=== PATIENT | male | born 1940 | race Caucasian/White ===

== ENCOUNTER → 2019-05-11 08:46 | Outpatient (BNVA) | payer MEDICARE, OTHER, SELFPAY | PROVIDERS: Family Provider Family Medicine; PCP Family Medicine; Visit Provider Nurse Practitioner Psychiatric/Mental Health | DX: F33.1 Major depressive disorder, recurrent, moderate (principal); F41.9 Anxiety disorder, unspecified | CPT/HCPCS: 99214 ==

== ENCOUNTER 2019-06-01 06:53 | Day surgery (SDC) | payer MEDICARE, OTHER, SELFPAY ==
[2019-05-29 16:09] VITALS: BMI 24.0
[2019-06-01] VITALS (13 sets, daily range): BP systolic 123–158; BP diastolic 70–82; PULSE 59–76; RESP 13–220; TEMP 36.4–37; O2SAT 94–100
--- NOTE | 2019-06-01 07:27 | PM.HPUD ---
H&P update H&P Update: DATE OF SURGERY/PROCEDURE: 06/01/19 DATE H&P PERFORMED: 05/28/19 H&P UPDATE INFORMATION: H&P completed within last 30 days and No changes to prior documentation PREOP DIAGNOSIS: Right inguinal hernia PLANNED PROCEDURE: Operation Date: 06/01/19 08:30 Proposed Procedures p Laparoscopic Inguinal Hernia Repair w/Mesh 49390 K40.90(Right) - Fernando Vazquez MD Full H&P Perinent History: Medical/Surgical History: Medical History (Updated 05/28/19 @ 09:28 by Fernando Vazquez MD) Anxiety (Acute) Back pain with history of spinal surgery (Acute) BPH (benign prostatic hyperplasia) (Acute) Depression (Acute) Hyperlipidemia (Acute) Right inguinal hernia (Acute) Family History: Family History (Updated 05/28/19 @ 09:18 by Marcia Sebastian LPN) Denies family history of Diabetes Anesthesia complication Bleeding disorder Cancer Social History: Social History Smoking and tobacco status: current every day smoker cigarettes Packs smoked per day: 1 Alcohol intake: never Household members: family Marital status: Single Current occupational status: retired History of recent travel: No
[2019-06-01] MEDS: sodium chloride 0.9% 1,000 ML 30 ML IV (07:35)
--- NOTE | 2019-06-01 07:39 | ANES.PREANE2 ---
Pre-Anesthetic Assessment Pre-Anesthetic Assessment: Height/Weight: Height 1.8 m Weight 78.018 kg Temp Pulse Resp BP Pulse Ox 98.6 F 63 18 138/70 96 06/01/19 07:16 06/01/19 07:16 06/01/19 07:16 06/01/19 07:16 06/01/19 07:16 Preop Diagnosis: Right inguinal hernia Proposed Procedure: Operation Date: 06/01/19 08:30 Proposed Procedures p Laparoscopic Inguinal Hernia Repair w/Mesh 85152 K40.90(Right) - Fernando Vazquez MD Last intake: Intake Last Liquid Date 05/31/19 Last Liquid Time 20:00 Last Solid Date 05/31/19 Last Solid Time 18:00 Social: Social History: Tobacco and No alcohol Exam: Pre-Anes Outpt Exam: alert, oriented x 3, clear to auscultation bilaterally and regular rate & rhythm Airway: MP: 2 Dentition: Partials (U & L) History/ROS: No significant history except as noted Pulmonary: Pulmonary: None reported CV/HEM: CV/HEM: None reported : : None reported Hepatic: Hepatic: None reported GI: GI: None reported Metabolic: Metabolic: Hyperlipidemia Musc/skel: Musc/skel: OA/DJD Neuropsych: Neuropsych: None reported Anesthetic Plan: ASA status: 3 Anesthesia: Anesthesia Evaluation and General Risk of > 500 ml blood loss (7ml/kg in children): No Meds/Allergies Current Medications: Current Medications Generic Name Dose Route Start Last Admin Trade Name Freq PRN Reason Stop Dose Admin Sodium Chloride 1,000 mls @ 30 ml s/hr 06/01/19 07:15 06/01/19 07:35 Sodium Chloride 0.9% IV 06/02/19 07:14 30 mls/hr .Q24H TERA Administration PFSH Anesthesia PFSH: Medical History Anxiety (Acute) Back pain with history of spinal surgery (Acute) BPH (benign prostatic hyperplasia) (Acute) Depression (Acute) Hyperlipidemia (Acute) Right inguinal hernia (Acute) Surgical History H/O circumcision (Acute) H/O colonoscopy (Acute) 3 yrs ago H/O shoulder surgery (Acute) bilateral rotator cuff repairs History of back surgery (Acute) Status post left knee replacement (Acute) Family History Denies family history of Diabetes Anesthesia complication Bleeding disorder Cancer Social History Smoking and tobacco status: current every day smoker cigarettes Packs smoked per day: 1 Alcohol intake: never Household members: family Marital status: Single Current occupational status: retired History of recent travel: No Data Anesthesia Cardiac Studies: No Data to Display
--- NOTE | 2019-06-01 09:41 | P.OP_ITS ---
Operative Report Date of procedure: June 01, 2019 Pre-op Diagnosis: Right inguinal hernia Post-op Diagnosis: Reducible indirect right inguinal hernia Small direct left inguinal hernia Procedure Done: Laparoscopic total extraperitoneal repair of right indirect and left direct inguinal hernia with ultraPro 15 x 10 cm mesh Pathology: none sent Surgeon: Fernando Vazquez Anesthesia: General Estimated blood loss (mL): 10 Complications: None Condition: stable Disposition: PACU Procedure: The patient was taken to the operating room. After IV antibiotic was administered, the abdomen was prepped and draped in a sterile manner. Using a 15 blade, a 1.0 cm transverse incision was made infraumbilically on the right side. Subcutaneous tissue was divided using electrocautery and the anterior rectus sheath divided using an 11 blade. The rectus muscle was retracted laterally and the extraperitoneal space identified. A 11 mm port was placed and 12 mm of pneumoperitoneum was created. A 10 mm 30? scope was introduced and the retrorectus space was opened using the camera up to the pubic symphysis and 5 mm ports were placed in the midline, one 2-fingerbreadths above the pubic symphysis and the other midway between these two ports under direct visualization. Blunt dissection was carried out to open up the tissue in the midline and to the pubic symphysis, which was identified. The dissection was then carried laterally where the iliopubic tract was identified. There was no femoral, obturator or direct hernia noted. The inferior epigastric artery was identified and diss ection was carried posterior to it and laterally, the space was opened up to the level of the umbilicus superior to the anterior superior iliac spine. I then proceeded to dissect out the spermatic cord and the indirect hernial sac was reduced . There was a small left direct inguinal hernia noted containing omentum which was reduced without difficulty. 15 x 10cm Ultrapro mesh was rolled and introduced through the 10 mm port and then rolled laterally and apposed well against the abdominal wall to cover the myopectineal orifice completely. The mesh was stretched over the direct left inguinal hernia and the mesh was held in place with Securestraps. 10 Cc of 0.5% Marcaine was infiltrated into the preperitoneal space. The extraperitoneal space was desufflated under direct visualization to ensure no slippage of hernial sac under the mesh. All ports were removed, the anterior rectus fascia at the infraumbilical port closed using figure of eight 0 Vicryl sutures, subcutaneous tissue approximated using 3-0 Vicryl sutures and skin at all three port sites were closed using running subcuticular 4-0 Monocryl sutures and Dermabond. 10 mL of 0.5% Marcaine was infiltrated at the port sites. The patient was stable throughout the procedure.
--- NOTE | 2019-06-01 09:47 | SUR.PHASEI ---
0996 PATIENT TO PACU AT THIS TIME. RR EVEN AND UNLABORED. PLACED ON SIMPLE MASK AT 8L, SPO2 98%. 3 INCISIONS TO ABDOMEN, CDI. PATIENT OPENS EYES TO VERBAL STIMULI.
[2019-06-01] MEDS: fentaNYL 50 mcg/mL INJ 2mL IVP ×2 (10:02→10:07)
--- NOTE | 2019-06-01 10:18 | SUR.PHASEI ---
1018 PATIENT RATES 08/29. PATIENT OK WITH GOING TO OPS TO TAKE A PAIN PILL.
--- NOTE | 2019-06-01 10:24 | SUR.PHASEI ---
1021 PATIENT TO OPS. TALKATIVE. NO DISTRESS. A/OX3. RR EVEN AND UNLABORED. 3 STABS TO ABDOMEN. CDI.
[2019-06-01] MEDS: HYDROcodone-acetaminophen 5-325 mg Tablet 1 TAB PO (10:41)
== END 2019-06-01 11:15 | disposition home or self-care (01) ==
PROVIDERS: Family Provider Family Medicine; PCP Family Medicine; Visit Provider Surgery
PROC: (CPT 49650; principal; 2019-06-01 08:00)
DX: K40.90 Unilateral inguinal hernia, without obstruction or gangrene, not specified as recurrent (principal); E78.5 Hyperlipidemia, unspecified; M19.90 Unspecified osteoarthritis, unspecified site; N40.0 Benign prostatic hyperplasia without lower urinary tract symptoms; F32.9 Major depressive disorder, single episode, unspecified; Z83.3 Family history of diabetes mellitus; F17.210 Nicotine dependence, cigarettes, uncomplicated
CPT/HCPCS: 49650; 12345; J0690; J1100; J1885; J2001; J2405; J2704; J2710; J3010; J3490; J7030

== ENCOUNTER 2019-06-24 10:45 | Outpatient (CLI) | payer MEDICARE, OTHER, SELFPAY | END 2019-06-24 10:46 | disposition home or self-care (01) | LOC: RADWPI 15:18 | PROVIDERS: Family Provider Family Medicine; PCP Family Medicine; Referring Provider Family Medicine; Visit Provider Anesthesiology Pain Medicine | DX: M54.16 Radiculopathy, lumbar region (principal); M54.12 Radiculopathy, cervical region; M47.812 Spondylosis without myelopathy or radiculopathy, cervical region; M25.511 Pain in right shoulder; M25.512 Pain in left shoulder; M96.1 Postlaminectomy syndrome, not elsewhere classified; M62.838 Other muscle spasm; F17.210 Nicotine dependence, cigarettes, uncomplicated; Z79.891 Long term (current) use of opiate analgesic | CPT/HCPCS: 99203; 99999 ==

== ENCOUNTER 2019-07-02 13:23 | Outpatient (CLI) | payer MEDICARE, OTHER, SELFPAY ==
--- NOTE | 2019-07-02 13:28 | MR_ITS ---
WS: [id number] MRI CERVICAL SPINE HISTORY: CERVICAL RADICULOPATHY COMPARISON: None available. Increase in cervical lordosis. Severe disc space narrowing at C3-4, C4-5 and C5-6 with endplate osteophytes. Very slight anterior we dging of T1 and T3. No marrow edema or fracture. Craniocervical junction, C1 and C2 relationship, odontoid process and soft tissues are normal. C2-C3: Normal. C3-C4: Diffuse osteophytic ridging and disc bulging. Broad-based LEFT paracentral disc protrusion con tacting the cord. Moderate central with severe bilateral foraminal stenosis. C4-C5: Osteophytic ridging encroaching upon the ventral thecal sac. Effacement of CSF and facet arthr opathy. Moderate to severe central and bilateral foraminal stenosis. C5-C6: Osteophytic ridging with facet joint arthropathy and asymmetric disc bulging. Moderate to kaylie re central and LEFT foraminal stenosis. Mild RIGHT foraminal stenosis. C6-C7: Mild disc bulging and osteophytosis. Mild bilateral foraminal stenosis. C7-T1: Mild disc bulging. Paraspinal soft tissue are normal. MR/MR cervical spin wo con* [id number] IMPRESSION: 1. Severe multilevel degenerative disc disease and osteophytosis at C3-4, C4-5 and C5-6. 2. Moderate central with severe bilateral foraminal stenosis at C3-4. 3. Moderate to severe central and bilateral foraminal stenosis at C4-5. 4. Moderate to severe central and LEFT foraminal stenosis at C5-6. 5. Increase in cervical lordosis. 6. Mild chronic compression fractures at T1 and T3.
== END 2019-07-02 13:24 | disposition home or self-care (01) ==
LOC: RADWPI 13:26
PROVIDERS: Family Provider Family Medicine; PCP Family Medicine; Visit Provider Anesthesiology Pain Medicine
DX: M54.12 Radiculopathy, cervical region (principal); M47.892 Other spondylosis, cervical region; M48.02 Spinal stenosis, cervical region; M48.54XA Collapsed vertebra, not elsewhere classified, thoracic region, initial encounter for fracture
CPT/HCPCS: 72141

== ENCOUNTER → 2019-07-03 12:30 | Outpatient (BNVA) | payer MEDICARE, OTHER, SELFPAY | PROVIDERS: Family Provider Family Medicine; PCP Family Medicine; Visit Provider Anesthesiology Pain Medicine | DX: M54.16 Radiculopathy, lumbar region (principal); M96.1 Postlaminectomy syndrome, not elsewhere classified; M50.00 Cervical disc disorder with myelopathy, unspecified cervical region; M54.12 Radiculopathy, cervical region; F17.210 Nicotine dependence, cigarettes, uncomplicated | CPT/HCPCS: 64483; J1030; J2001; J3490 ==

== ENCOUNTER → 2019-07-16 09:42 | Outpatient (BNVA) | payer MEDICARE, OTHER, SELFPAY | PROVIDERS: Family Provider Family Medicine; PCP Family Medicine; Visit Provider Anesthesiology Pain Medicine | DX: M54.9 Dorsalgia, unspecified (principal); M50.00 Cervical disc disorder with myelopathy, unspecified cervical region; M54.12 Radiculopathy, cervical region; M70.71 Other bursitis of hip, right hip; Y93.9 Activity, unspecified; F17.210 Nicotine dependence, cigarettes, uncomplicated; Z79.891 Long term (current) use of opiate analgesic | CPT/HCPCS: 99213 ==

== ENCOUNTER → 2019-08-19 10:16 | Outpatient (BNVA) | payer MEDICARE, OTHER, SELFPAY | PROVIDERS: Family Provider Family Medicine; PCP Family Medicine; Visit Provider Anesthesiology Pain Medicine | DX: M70.71 Other bursitis of hip, right hip (principal); Y93.9 Activity, unspecified | CPT/HCPCS: 20610; 77003; J1030; J2001; J3490 ==

== ENCOUNTER → 2019-10-02 10:34 | Outpatient (BNVA) | payer MEDICARE, OTHER, SELFPAY | PROVIDERS: Family Provider Family Medicine; PCP Family Medicine; Visit Provider Anesthesiology Pain Medicine | DX: M54.16 Radiculopathy, lumbar region (principal); M54.9 Dorsalgia, unspecified; M70.71 Other bursitis of hip, right hip; M50.00 Cervical disc disorder with myelopathy, unspecified cervical region; M54.12 Radiculopathy, cervical region; M47.812 Spondylosis without myelopathy or radiculopathy, cervical region; M96.1 Postlaminectomy syndrome, not elsewhere classified; M62.838 Other muscle spasm; Y93.9 Activity, unspecified; F17.210 Nicotine dependence, cigarettes, uncomplicated; Z79.891 Long term (current) use of opiate analgesic | CPT/HCPCS: 99214 ==

== ENCOUNTER 2020-07-14 08:49 | Outpatient (CLI) | payer MEDICARE, OTHER, SELFPAY ==
--- NOTE | 2020-07-14 09:00 | CT_ITS ---
WS: [id number] CTA HEAD TECHNIQUE: Contrast enhanced CTA of the head with coronal and sagittal reformatted images and maximum intensity projection (MIP) images. NASCET criteria utilized. CLINICAL INFORMATION: R40.20 - Unspecified coma COMPARISON: None. DLP: 1452.[address] scans at [facility] use at least one of these dose optimization techniques: automat ed exposure control; mA and/or kV adjustment per patient size (includes targeted exams where dose is matched to clinical indication); or iterative reconstruction. FINDINGS: Mild small vessel changes. Moderate parenchymal volume loss. No extra-axial fluid collectio ns. No evidence of mass or mass effect. INTRACRANIAL CTA: Distal vertebral arteries are normal. Normal basilar artery. Normal vascularity to the ELECTRO PLATER territory bilaterally. Both ICAs are patent at the skull base. Hypoplastic left A1. Normal vascularity to the KERRY and MCA te rritories bilaterally. No flow-limiting stenosis. Mild cavernous carotid calcification. Ophthalmic ar teries appear patent. CT/CT angio head [id number] IMPRESSION: 1. Mild small vessel changes. Moderate parenchymal volume loss. 2. Normal intracranial CTA. No flow-limiting stenosis. 3. Ophthalmic arteries appear patent. 4. Normal variant hypoplastic left A1 segment. 5. No other significant findings.
[2020-07-14 09:23] LABS: Blood Urea Nitrogen 9 mg/dL (8-23)
[2020-07-14] MEDS: iohexol 350 mg/mL 100 mL Btl IV (09:36)
== END 2020-07-14 08:50 | disposition home or self-care (01) ==
LOC: RADWPI 08:50
PROVIDERS: PCP Family Medicine; Visit Provider Family Medicine
DX: R40.20 Unspecified coma (principal)
CPT/HCPCS: 70496; 82565; 84520; Q9967

== ENCOUNTER → 2020-10-03 12:36 | Outpatient (BNVA) | payer MEDICARE, OTHER, SELFPAY | PROVIDERS: PCP Family Medicine; Visit Provider Nurse Practitioner Psychiatric/Mental Health | DX: F33.1 Major depressive disorder, recurrent, moderate (principal); F41.9 Anxiety disorder, unspecified | CPT/HCPCS: 99215 ==

== ENCOUNTER → 2020-10-31 09:51 | Outpatient (BNVA) | payer MEDICARE, OTHER, SELFPAY | PROVIDERS: PCP Family Medicine; Visit Provider Nurse Practitioner Psychiatric/Mental Health | DX: F41.9 Anxiety disorder, unspecified (principal); F33.1 Major depressive disorder, recurrent, moderate | CPT/HCPCS: 99214 ==

== ENCOUNTER → 2020-12-05 07:53 | Outpatient (BNVA) | payer MEDICARE, OTHER, SELFPAY | PROVIDERS: PCP Family Medicine; Visit Provider Nurse Practitioner Psychiatric/Mental Health | DX: F41.9 Anxiety disorder, unspecified (principal); F33.1 Major depressive disorder, recurrent, moderate | CPT/HCPCS: 99214 ==

== ENCOUNTER → 2021-01-02 07:39 | Outpatient (BNVA) | payer MEDICARE, OTHER, SELFPAY | PROVIDERS: PCP Family Medicine; Visit Provider Nurse Practitioner Psychiatric/Mental Health | DX: F41.9 Anxiety disorder, unspecified (principal); F33.1 Major depressive disorder, recurrent, moderate | CPT/HCPCS: 99214 ==

== ENCOUNTER → 2021-01-30 07:00 | Outpatient (BNVA) | payer MEDICARE, OTHER, SELFPAY | PROVIDERS: PCP Family Medicine; Visit Provider Nurse Practitioner Psychiatric/Mental Health | DX: F33.1 Major depressive disorder, recurrent, moderate (principal); F41.9 Anxiety disorder, unspecified; Z03.89 Encounter for observation for other suspected diseases and conditions ruled out; Z79.899 Other long term (current) drug therapy | CPT/HCPCS: 99214 ==

== ENCOUNTER → 2021-02-02 09:38 | Outpatient (BNVA) | payer MEDICARE, OTHER, SELFPAY | PROVIDERS: PCP Family Medicine; Visit Provider Nurse Practitioner Psychiatric/Mental Health | DX: Z03.89 Encounter for observation for other suspected diseases and conditions ruled out (principal); Z79.899 Other long term (current) drug therapy | CPT/HCPCS: 80053; 80061 ==

== ENCOUNTER → 2021-02-27 08:17 | Outpatient (BNVA) | payer MEDICARE, OTHER, SELFPAY | PROVIDERS: PCP Family Medicine; Visit Provider Nurse Practitioner Psychiatric/Mental Health | DX: F33.1 Major depressive disorder, recurrent, moderate (principal); F41.9 Anxiety disorder, unspecified | CPT/HCPCS: 99213 ==

== ENCOUNTER → 2021-03-27 08:14 | Outpatient (BNVA) | payer MEDICARE, OTHER, SELFPAY | PROVIDERS: PCP Family Medicine; Visit Provider Nurse Practitioner Psychiatric/Mental Health | DX: F33.1 Major depressive disorder, recurrent, moderate (principal); F41.9 Anxiety disorder, unspecified | CPT/HCPCS: 99213 ==

== ENCOUNTER → 2021-04-24 08:00 | Outpatient (BNVA) | payer MEDICARE, OTHER, SELFPAY | PROVIDERS: PCP Family Medicine; Visit Provider Nurse Practitioner Psychiatric/Mental Health | DX: F33.1 Major depressive disorder, recurrent, moderate (principal); F41.9 Anxiety disorder, unspecified | CPT/HCPCS: 99214 ==

== ENCOUNTER → 2021-06-07 09:21 | Outpatient (BNVA) | payer MEDICARE, OTHER, SELFPAY | PROVIDERS: PCP Family Medicine; Visit Provider Psychiatry & Neurology Psychiatry | DX: F33.1 Major depressive disorder, recurrent, moderate (principal); F41.0 Panic disorder [episodic paroxysmal anxiety]; F42.9 Obsessive-compulsive disorder, unspecified; Z79.899 Other long term (current) drug therapy | CPT/HCPCS: 90792 ==

== ENCOUNTER → 2021-06-22 08:26 | Outpatient (BNVA) | payer MEDICARE, OTHER, SELFPAY | PROVIDERS: PCP Family Medicine; Visit Provider Psychiatry & Neurology Psychiatry | DX: F42.9 Obsessive-compulsive disorder, unspecified; F41.0 Panic disorder [episodic paroxysmal anxiety]; Z79.899 Other long term (current) drug therapy; F33.1 Major depressive disorder, recurrent, moderate | CPT/HCPCS: 99215 ==

== ENCOUNTER → 2021-07-13 09:02 | Outpatient (BNVA) | payer MEDICARE, OTHER, SELFPAY | PROVIDERS: PCP Family Medicine; Visit Provider Psychiatry & Neurology Psychiatry | DX: F41.1 Generalized anxiety disorder (principal); Z79.899 Other long term (current) drug therapy | CPT/HCPCS: 99214 ==

== ENCOUNTER → 2021-08-17 09:42 | Outpatient (BNVA) | payer MEDICARE, OTHER, SELFPAY | PROVIDERS: PCP Family Medicine; Visit Provider Psychiatry & Neurology Psychiatry | DX: F33.42 Major depressive disorder, recurrent, in full remission (principal); F42.9 Obsessive-compulsive disorder, unspecified; F41.0 Panic disorder [episodic paroxysmal anxiety]; Z79.899 Other long term (current) drug therapy | CPT/HCPCS: 99214 ==

== ENCOUNTER → 2021-09-28 09:17 | Outpatient (BNVA) | payer MEDICARE, OTHER, SELFPAY | PROVIDERS: PCP Family Medicine; Visit Provider Nurse Practitioner Psychiatric/Mental Health | DX: F33.42 Major depressive disorder, recurrent, in full remission (principal); F42.9 Obsessive-compulsive disorder, unspecified; F41.0 Panic disorder [episodic paroxysmal anxiety]; Z79.899 Other long term (current) drug therapy | CPT/HCPCS: 99213 ==

== ENCOUNTER 2022-03-04 06:37 | Emergency (ER) | payer MEDICARE, OTHER, SELFPAY ==
--- NOTE | 2022-03-04 06:51 | ED_ITS ---
HPI - Male Genitourinary General: Chief complaint: Urogenital-Male Stated complaint: possible uti Time Seen by Provider: 03/04/22 06:38 Source: patient Mode of arrival: ambulatory History of Present Illness: 81-year-old male presents to the emergency room with complaints of dysuria urgency and frequency. No hematuria no fever sweats chills no flank pain symptoms began 2 days ago. He is awake and alert he has had problems with cystitis in the past. No recent medication changes MD Complaint: dysuria Onset (ago): day(s) (2) Duration: constant Location: abdomen Severity: moderate Quality: aching Relieving factors: none Exacerbating factors: urination Associated symptoms: Reports dysuria; Deny discharge, fevers/chills, hematuria, nausea, rash, swelling, urinary incontinence, urinary retention, mass or vomiting Review of Systems Const: Denies: fever(s), chills, body aches, change in appetite, fatigue or malaise ENMT: Denies: throat pain, ear or mastoid pain, nasal discharge or nasal congestion Card: Denies: chest pain, edema, dyspnea on exertion or orthopnea Resp: Denies: dyspnea, productive cough or non-productive cough GI: Denies: nausea or vomiting : Reports: dysuria, urinary frequency and urinary urgency; Denies: flank pain, urinary incontinence or hematuria Skin/Breast: Denies: rash or pruritus PFSH ED PFSH: Medical History Anxiety Back pain with history of spinal surgery BPH (benign prostatic hyperplasia) Depression Hyperlipidemia Psychiatric care Right inguinal hernia Surgical History H/O circumcision H/O colonoscopy 3 yrs ago H/O shoulder surgery bilateral rotator cuff repairs History of back surgery Status post left knee replacement Status post right inguinal hernia repair Family History Denies family history of Diabetes Anesthesia complication Bleeding disorder Cancer Social History Smoking and tobacco status: current every day smoker cigarettes Packs smoked per day: 1 [ Other cigarette details: STARTED SMOKING IN 1959] Quit status (tobacco): not considering quitting Second hand smoke exposure: No Smoking risk assessment/counseling performed?: No Alcohol intake: current Alcohol intake frequency: few times a week Desire information about alcohol rehabilitation?: No Counseling given: No Desire information about substance/drug rehabilitation?: No Counseling given: No Household members: family Marital status: Single Current occupational status: retired History of recent travel: No Physical Exam Const: COMMON NORMALS: no acute distress GENERAL APPEARANCE: cooperative and comfortable ORIENTATION/CONSCIOUSNESS: Yes awake, Yes oriented to person, Yes oriented to place and Yes oriented to time HENMT: COMMON NORMALS: normocephalic, atraumatic and hearing grossly normal bilaterally HEAD & SCALP: normocephalic and atraumatic Resp: COMMON NORMALS: normal respiratory effort, No retractions, No use of accessory muscles and clear to auscultation bilaterally AUSCULTATION: clear to auscultation bilaterally Cardio: COMMON NORMALS: regular rate, regular rhythm and No murmurs present (Cardio) RATE: regular rate RHYTHM: regular rhythm GI: COMMON NORMALS: Soft to palpation and No hepatosplenomegaly present AUSCULTATION: Yes normoactive bowel sounds PALPATION: Yes Soft to palpation, No Tenderness to palpation present (GI), No Guarding due to palpation present (GI) and Yes No hepatosplenomegaly present Extremity: COMMON NORMALS: normal to inspection, capillary refill normal, no clubbing, cyanosis or edema, no calf tenderness and no pedal edema Neuro: SENSORIUM/ORIENTATION: Yes oriented to person, Yes oriented to place and Yes oriented to time Skin: COMMON NORMALS: no rashes or lesions noted GENERAL SKIN EXAM: no rashes or lesions noted Course Vital Signs: Vital signs: Vital Signs Temperature 98.0 F 03/04/22 06:55 Pulse Rate 74 03/04/22 08:07 Respiratory Rate 18 03/04/22 06:55 Blood Pressure 134/72 03/04/22 08:07 Pulse Oximetry 98 03/04/22 08:07 Oxygen Delivery Mi thod 03/04/22 06:55 MDM - Male Medical Decision Making Acute cystitis. He has no flank pain does have little more red blood cells and white but he has nothing clinically suggestive of nephrolithiasis. Started on Cipro 500 twice daily for 7 days follow-up with his primary care doctor if not improving. Medical Records I reviewed the patient's medical records. Lab Data I reviewed the patient's lab results. Laboratory Results Urine Color Yellow (Yellow) 03/04/22 07:00 Urine Appearance Sl hazy (CLEAR) A 03/04/22 07:00 Urine pH 5 (5-7) 03/04/22 07:00 Ur Specific Randolph 1.020 (1.005-1.030) 03/04/22 07:00 Urine Protein Neg (Negative) 03/04/22 07:00 Urine Glucose (UA) Norm (Normal) 03/04/22 07:00 Urine Ketones 1+ (Negative) H 03/04/22 07:00 Urine Blood 3+ (Negative) H 03/04/22 07:00 Urine Nitrate Negative (Negative) 03/04/22 07:00 Urine Bilirubin Neg (Negative) 03/04/22 07:00 Urine Urobilinogen Norm mg/dL (Negative) 03/04/22 07:00 Ur Leukocyte Esterase Trace (Negative) H 03/04/22 07:00 Urine RBC 15-25 /hpf (0-2) H 03/04/22 07:00 Urine WBC 5-10 /hpf (0-5) H 03/04/22 07:00 Ur Squamous Epith Cells Rare /hpf (0-5) 03/04/22 07:00 Amorphous Sediment Not Reportable 03/04/22 07:00 Urine Bacteria Trace /hpf (NONE) 03/04/22 07:00 Discharge Plan Discharge Patient Disposition: Home Clinical Impression: Urinary tract infection Condition: Stable Prescriptions: New Cipro 500 mg tablet 500 mg PO BID Qty: 14 0RF Pyridium 200 mg tablet 200 mg PO Q8H PRN (Reason: pain) Qty: 6 0RF No Action polyethylene glycol 3350 [Miralax] 17 gram/dose powder 17 g PO DAILY ibuprofen 200 mg capsule 800 mg PO Q8H PRN multivitamin Tablet 1 tab PO DAILY paroxetine HCl 40 mg tablet 40 mg PO BID Qty: 60 2RF alprazolam 2 mg tablet extended release 24 hr 2 mg PO DAILY Qty: 30 2RF aspirin 81 mg tablet,delayed release (DR/EC) 81 mg PO DAILY atorvastatin 40 mg tablet 40 mg PO DAILY clopidogrel 75 mg tablet 75 mg PO DAILY Qty: 90 3RF tamsulosin 0.4 mg capsule 0.8 mg PO DAILY Qty: 60 11RF Discharge Orders: Discharge ED (Routine); Ordered 11/13/22 Ordered By: Yoni Lawson Referrals: Shant Hagan DO [Primary Care Provider] - Discharge Diet: Usual diet Discharge Activity: Resume usual activity Patient Instructions: Opioid Safety, Pain Management Activity Restrictions/Additional Instructions: You were diagnosed with a bladder infection. If symptoms do not improve follow- up with your primary care doctor. Coding Level of Care Code ED Hydraulic Oil Tool Operator for Chg Fwd Exam Detailed
[2022-03-04 06:55] VITALS: BP 134/80; PULSE 80; RESP 18; TEMP 36.7; O2SAT 100
[2022-03-04 07:41] LABS: Add Urine Microscopic? YES; Bacteria Urine TRACE /hpf; Bilirubin Urine Neg (Negative); Blood Urine 3+ (Negative); Glucose Urine UA Norm (Normal); Ketones Urine 1+ (Negative); Leukocyte Esterase Urine Trace (Negative); Nitrate Urine Negative (Negative); Protein Urine Neg (Negative); RBC Urine 15-25 /hpf (0-2); Squamous Epithelial Cell Urine RARE /hpf (0-5); Urine Appearance SL Hazy (CLEAR); Urine Color Yellow (Yellow); Urobilinogen Urine Norm (Negative); pH Urine 5 (5-7)
[2022-03-04 07:42] LABS: Add Urine Culture? Yes
[2022-03-04 08:07] VITALS: BP 134/72; PULSE 74; O2SAT 98
== END 2022-03-04 08:10 | disposition home or self-care (01) ==
PROVIDERS: Emergency Provider Family Medicine; PCP Family Medicine
DX: N39.0 Urinary tract infection, site not specified (principal)
CPT/HCPCS: 81001; 87086; 99283

== ENCOUNTER → 2022-05-30 10:49 | Outpatient (BNVA) | payer MEDICARE, OTHER, SELFPAY | PROVIDERS: PCP Family Medicine; Visit Provider Family Medicine | DX: E78.5 Hyperlipidemia, unspecified (principal); I63.9 Cerebral infarction, unspecified | CPT/HCPCS: 80053; 80061; 85025 ==

== ENCOUNTER → 2022-06-19 08:48 | Outpatient (BNVA) | payer MEDICARE, OTHER, SELFPAY | PROVIDERS: PCP Family Medicine; Visit Provider Family Medicine | DX: D53.9 Nutritional anemia, unspecified (principal) | CPT/HCPCS: 82607 ==

== ENCOUNTER 2022-08-13 15:03 | Outpatient (CLI) | payer MEDICARE, OTHER, SELFPAY ==
--- NOTE | 2022-08-13 15:15 | MR_ITS ---
WS: [id number] MRI CERVICAL SPINE NONCONTRAST HISTORY: M54.12 - Radiculopathy, cervical region COMPARISON: 07/02/2019 Technique: Multiplanar, multisequence noncontrast imaging of the cervical spine. Increase in cervical lordosis. C3 retrolisthesis by 2 mm. Severe disc space narrowing throughout the cervical spine, most significant at C3-4, C4-5 and C5-6. Signal within the cervical cord is normal. Visualized posterior fossa is unremarkable. Craniocervical junction, C1 and C2 relationship, odontoid process and soft tissues are normal. C2-C3: Normal. C3-C4: Osteophytic ridging with annular disc bulging and facet arthritis. LEFT paracentral disc protr usion has decreased in size. There is a small persistent protrusion. Moderate central with severe kimberly ateral foraminal stenosis. C4-C5: Effacement of CSF. Severe central and bilateral foraminal stenosis. Similar to the prior study . C5-C6: Diffuse osteophytic ridging and disc bulging. Facet disease. Marrow edema in the RIGHT facets. Mild bilateral foraminal stenosis. Moderate central stenosis. Edema in the RIGHT facet and joint. C6-C7: Mild osteophytic ridging. No significant stenosis. C7-T1: Bilateral ligamentum flavum and facet disease. Very mild encroachment upon the ventral thecal sac. Mild LEFT foraminal stenosis. Paraspinal soft tissue are normal. MR/MR cervical spin wo con* [id number] IMPRESSION: 1. Advanced degenerative disc disease and spondylosis cervical spine. Similar findings as compared to 07/02/2019. 2. Moderate Central severe bilateral foraminal stenosis at C3-4. Previously de scribed LEFT paracentral disc protrusion has decreased in size. 3. Severe central and bilateral foraminal stenosis at C4-5. 4. Moderate central with mild foraminal stenosis at C5-6. 5. Mild LEFT foraminal stenosis at C7-T1. 6. Facet joint edema on the RIGHT at C4-5 and C5-6.
== END 2022-08-13 15:04 | disposition home or self-care (01) ==
LOC: RAD 15:08
PROVIDERS: PCP Family Medicine; Visit Provider Family Medicine
DX: M47.812 Spondylosis without myelopathy or radiculopathy, cervical region (principal); M50.00 Cervical disc disorder with myelopathy, unspecified cervical region; M50.30 Other cervical disc degeneration, unspecified cervical region; M48.02 Spinal stenosis, cervical region
CPT/HCPCS: 72141

== ENCOUNTER 2023-02-22 16:57 | Emergency (ER) | payer MEDICARE, OTHER, SELFPAY ==
--- NOTE | 2023-02-22 17:03 | XRR_ITS ---
PROCEDURE INFORMATION: Exam: XR Chest Exam date and time: 02/22/2023 5:59 PM Age: 82 years old Clinical indication: Condition or disease; Other: SOB; Additional info: Dyspnea/cough; SOB; Panic attack TECHNIQUE: Imaging protocol: Radiologic exam of the chest. Views: 1 view. COMPARISON: CR XR chest 1V [id number] 01/20/2019 11:54 PM FINDINGS: Lungs: No consolidative pulmonary infiltrates are noted. Pleural spaces: No pleural effusion. No pneumothorax. Heart/Mediastinum: No cardiomegaly. Vasculature: The thoracic aorta is atherosclerotic. Bones/joints: Postop change left shoulder. Degenerative thoracic spine changes are noted. XR/XR chest 1V portable [id number] IMPRESSION: 1. No acute abnormality demonstrated. 2. There is no interval change from the prior examination.
--- NOTE | 2023-02-22 17:04 | ED_ITS ---
Documented by User: Yoni Lawson DO 02/25/23 07:06 HPI - SOB/Dyspnea General: Chief Complaint: Shortness of Breath/Dyspnea Stated Complaint: sob Time Seen by Provider: 02/22/23 16:59 Source: patient Mode of arrival: ambulatory History of Present Illness: HPI Narrative: 82-year-old male presents emergency room complaining of shortness of breath. Patient admits to significant amount of anxiety he was asked by physician at [facility] to stop using kratom for anxiety since he stopped that he started getting short of breath denies any chest pain no abdominal pain no nausea vomiting or diarrhea no productive cough no other upper respiratory symptoms. MD elicited complaint: shortness of breath and cough Pertinent past history: COPD Onset (ago): minute(s) Timing: constant Severity: mild Exacerbating factors: nothing Relieving factors: nothing Associated symptoms: Deny abdominal pain, chest congestion, chest pain, cough, diaphoresis, dizziness, extremity pain, fever(s), hemoptysis, lightheadedness, myalgias, nausea, orthopnea, palpitations, paresthesias, polydipsia, polyuria, rash, sense of impending doom, syncope or vomiting Treatment prior to arrival: none Review of Systems Const: Denies: fever(s) or diaphoresis Card: Denies: chest pain, palpitations, lightheadedness, syncope or orthopnea Resp: Denies: hemoptysis or chest congestion GI: Denies: abdominal pain, nausea or vomiting : Denies: dysuria, urinary frequency or urinary urgency Musc: Denies: extremity pain Skin/Breast: Denies: rash Neuro: Denies: dizziness Endo: Denies: polyuria or polydipsia PFSH ED PFSH: Medical History Anxiety Back pain with history of spinal surgery BPH (benign prostatic hyperplasia) Depression Hyperlipidemia Psychiatric care Right inguinal hernia Surgical History H/O circumcision H/O colonoscopy 3 yrs ago H/O shoulder surgery bilateral rotator cuff repairs History of back surgery Status post left knee replacement Status post right inguinal hernia repair Family History Denies family history of Diabetes Anesthesia complication Bleeding disorder Cancer Social History Smoking and tobacco/nicotine status: current every day tobacco/nicotine user cigarettes Packs smoked per day: 1 [ Other cigarette details: STARTED SMOKING IN 1959] Quit status (tobacco/nicotine): not considering quitting Second hand smoke exposure: No Alcohol intake: current Alcohol intake frequency: few times a week Substance/Drug Use: never Household members: family Marital status: Single Current occupational status: retired Physical Exam Const: COMMON NORMALS: no acute distress GENERAL APPEARANCE: cooperative and comfortable ORIENTATION/CONSCIOUSNESS: Yes awake, Yes oriented to person, Yes oriented to place and Yes oriented to time HENMT: COMMON NORMALS: normocephalic, atraumatic and hearing grossly normal bilaterally HEAD & SCALP: normocephalic and atraumatic Resp: COMMON NORMALS: normal respiratory effort, No retractions, No use of accessory muscles and clear to auscultation bilaterally AUSCULTATION: clear to auscultation bilaterally Cardio: COMMON NORMALS: regular rate, regular rhythm and No murmurs present (Cardio) RATE: regular rate RHYTHM: regular rhythm GI: COMMON NORMALS: Soft to palpation and No hepatosplenomegaly present AUSCULTATION: Yes normoactive bowel sounds PALPATION: Yes Soft to palpation, No Tenderness to palpation present (GI), No Guarding due to palpation present (GI) and Yes No hepatosplenomegaly present Extremity: COMMON NORMALS: normal to inspection, capillary refill normal, no clubbing, cyanosis or edema, no calf tenderness and no pedal edema Neuro: SENSORIUM/ORIENTATION: Yes oriented to person, Yes oriented to place and Yes oriented to time Skin: COMMON NORMALS: no rashes or lesions noted GENERAL SKIN EXAM: no rashes or lesions noted Course Vital Signs: Vital signs: Vital Signs Temperature 97.7 F 02/22/23 17:13 Pulse Rate 73 02/22/23 20:32 Respiratory Rate 16 02/22/23 20:32 Blood Pressure 144/94 02/22/23 20:32 Pulse Oximetry 95 02/22/23 20:32 Oxygen Delivery Ri thod Room Air 02/22/23 17:13 MDM - SOB/Dyspnea Medical Decision Making Care signed out to Dr. Horn at change of shift. See final notes for diagnosis and disposition. 82 year old gentleman checked out to me at shift change by the previous physician. He was awaiting a second troponin. His delta troponin is 2.8. Pain is resolved. Chest X-ray is negative. With resolution of his symptoms after lorazepam, he'll be allowed home. Outpatient follow up. Return for worsening symptoms. Lab Data 02/22/23 17:42 02/22/23 17:42 Labs/Radiology: Radiology Impressions Chest X-Ray 02/22/23 17:03 IMPRESSION: 1. No acute abnormality demonstrated. 2. There is no interval change from the prior examination. Laboratory Results WBC 7.67 10^3/uL (3.29-11.43) 02/22/23 17:42 RBC 3.97 10^6/uL (3.85-5.65) 02/22/23 17:42 Hgb 13.20 g/dL (11.27-16.99) 02/22/23 17:42 Hct 40.7 % (37-53) 02/22/23 17:42 MCV 102.5 fl (82-101) H 02/22/23 17:42 MCH 33.2 pg (27-33) H 02/22/23 17:42 MCHC 32.4 g/dL (30-55) 02/22/23 17:42 RDW 12.3 % (12.1-15.1) 02/22/23 17:42 Plt Count 230 10^3/cmm (157-399) 02/22/23 17:42 MPV 11.3 fL (7.4-10.4) H 02/22/23 17:42 Neut % (Auto) 73.5 % 02/22/23 17:42 Lymph % (Auto) 15.8 % 02/22/23 17:42 [place]arton % (Auto) 8.2 % 02/22/23 17:42 Eos % (Auto) 1.4 % 02/22/23 17:42 Baso % (Auto) 0.3 % 02/22/23 17:42 Neut # (Auto) 5.64 10^3/uL (1.8-7.7) 02/22/23 17:42 Lymph # (Auto) 1.2 10^3/uL (0.8-4.8) 02/22/23 17:42 [place] # (Auto) 0.6 10^3/uL (0.2-0.9) 02/22/23 17:42 Eos # (Auto) 0.1 10^3/uL (0.0-0.8) 02/22/23 17:42 Baso # (Auto) 0.0 10^3/uL (0.0-0.1) 02/22/23 17:42 Nucleated RBC % (auto) 0 % 02/22/23 17:42 Nucleated RBCs # 0.0 /100WBC 02/22/23 17:42 Sodium 138 mmol/L (136-145) 02/22/23 17:42 Potassium 4.4 mmol/L (3.5-5.1) 02/22/23 17:42 Chloride 102 mmol/L (98-107) 02/22/23 17:42 Carbon Dioxide 27 mmol/L (22-29) 02/22/23 17:42 Anion Gap 13.4 (5-19) 02/22/23 17:42 BUN 10 mg/dL (8-23) 02/22/23 17:42 Creatinine 0.7 mg/dL (0.7-1.2) 02/22/23 17:42 GFR Calculation Not Reportable 02/22/23 17:42 Glucose 95 mg/dL (65-115) 02/22/23 17:42 POC Glucose 127 mg/dL (70-110) H 02/22/23 18:38 Calculated Osmolality 285 mOsm/kg (285-295) 02/22/23 17:42 Calcium 9.3 mg/dL (8.5-10.5) 02/22/23 17:42 Total Bilirubin 0.5 mg/dL (0.15-1.2) 02/22/23 17:42 AST 20 U/L (0-40) 02/22/23 17:42 ALT 22 U/L (0-41) 02/22/23 17:42 Alkaline Phosphatase 134 U/L (40-130) H 02/22/23 17:42 Troponin T Baseline 17 ng/L (0-15) H 02/22/23 17:42 Troponin T 120 Minute 19.76 ng/L (0-15) H 02/22/23 19:32 Delta Troponin T 2.76 ABS# (0-10) 02/22/23 19:32 Total Protein 6.3 g/dL (6.6-8.7) L 02/22/23 17:42 Albumin 3.9 g/dL (3.5-5.2) 02/22/23 17:42 Globulin 2.4 g/dL (1.3-4.6) 02/22/23 17:42 Urine Color Yellow (Yellow) 02/22/23 18:02 Urine Appearance Clear (CLEAR) 02/22/23 18:02 Urine pH 9 (5-7) H 02/22/23 18:02 Ur Specific [place] 1.020 (1.005-1.030) 02/22/23 18:02 Urine Protein Neg (Negative) 02/22/23 18:02 Urine Glucose (UA) Norm (Normal) 02/22/23 18:02 Urine Ketones 1+ (Negative) H 02/22/23 18:02 Urine Blood Neg (Negative) 02/22/23 18:02 Urine Nitrate Negative (Negative) 02/22/23 18:02 Urine Bilirubin Neg (Negative) 02/22/23 18:02 Prot Sulfosalicylic Acd Negative (Negative) 02/22/23 18:02 Urine Urobilinogen Neg mg/dL (Negative) 02/22/23 18:02 Ur Leukocyte Esterase Negative (Negative) 02/22/23 18:02 Discharge Plan Discharge Patient Disposition: Home Clinical Impression: Acute dyspnea, Panic disorder Condition: Stable Prescriptions: No Action polyethylene glycol 3350 [Miralax] 17 gram/dose powder 17 g PO DAILY ibuprofen 200 mg capsule 800 mg PO Q8H PRN multivitamin Tablet 1 tab PO DAILY alprazolam 2 mg tablet extended release 24 hr 2 mg PO .qhs Qty: 30 3RF paroxetine HCl 40 mg tablet See Rx Instructions .ROUTE .COMPLEX Qty: 60 11RF Dose Instruction: Take 1 tablet by mouth twice daily Rx Instructions: Take 1 tablet by mouth twice daily aspirin 81 mg tablet,delayed release (DR/EC) 81 mg PO DAILY clopidogrel 75 mg tablet 75 mg PO DAILY Qty: 90 3RF tamsulosin 0.4 mg capsule 0.8 mg PO DAILY Qty: 60 11RF atorvastatin 40 mg tablet 40 mg PO DAILY Qty: 30 0RF atorvastatin 40 mg tablet 40 mg PO DAILY Qty: 90 3RF Discharge Orders: Discharge ED (Routine); Ordered 02/22/23 Ordered By: Collin Horn Referrals: Shant Hagan DO [Primary Care Provider] - 1-3 days Patient Instructions: Panic Disorder (ED), Dyspnea (ED), Opioid Safety, Pain Management Activity Restrictions/Additional Instructions: Follow-up with your doctor next week. Return for repeated episodes of chest discomfort, worsening shortness of breath, fever, other concerning symptoms. Coding Level of Care Code ED Food And Drug Inspector for Chg Fwd Documented by User: Collin Horn DO 02/23/23 17:25 HPI - SOB/Dyspnea General: Chief Complaint: Shortness of Breath/Dyspnea Stated Complaint: sob Time Seen by Provider: 02/22/23 16:59 PFSH ED PFSH: Medical History Anxiety Back pain with history of spinal surgery BPH (benign prostatic hyperplasia) Depression Hyperlipidemia Psychiatric care Right inguinal hernia Surgical History H/O circumcision H/O colonoscopy 3 yrs ago H/O shoulder surgery bilateral rotator cuff repairs History of back surgery Status post left knee replacement Status post right inguinal hernia repair Family History Denies family history of Diabetes Anesthesia complication Bleeding disorder Cancer Social History Smoking and tobacco/nicotine status: current every day tobacco/nicotine user cigarettes Packs smoked per day: 1 [ Other cigarette details: STARTED SMOKING IN 1959] Quit status (tobacco/nicotine): not considering quitting Second hand smoke exposure: No Alcohol intake: current Alcohol intake frequency: few times a week Substance/Drug Use: never Household members: family Marital status: Single Current occupational status: retired Course Vital Signs: Vital signs: Vital Signs Temperature 97.7 F 02/22/23 17:13 Pulse Rate 73 02/22/23 20:32 Respiratory Rate 16 02/22/23 20:32 Blood Pressure 144/94 02/22/23 20:32 Pulse Oximetry 95 02/22/23 20:32 Oxygen Delivery Me thod Room Air 02/22/23 17:13 MDM - SOB/Dyspnea Medical Decision Making 82 year old gentleman checked out to me at shift change by the previous physician. He was awaiting a second troponin. His delta troponin is 2.8. Pain is resolved. Chest X-ray is negative. With resolution of his symptoms after lorazepam, he'll be allowed home. Outpatient follow up. Return for worsening symptoms. Lab Data 02/22/23 17:42 02/22/23 17:42 Labs/Radiology: Radiology Impressions Chest X-Ray 02/22/23 17:03 IMPRESSION: 1. No acute abnormality demonstrated. 2. There is no interval change from the prior examination. Laboratory Results WBC 7.67 10^3/uL (3.29-11.43) 02/22/23 17:42 RBC 3.97 10^6/uL (3.85-5.65) 02/22/23 17:42 Hgb 13.20 g/dL (11.27-16.99) 02/22/23 17:42 Hct 40.7 % (37-53) 02/22/23 17:42 MCV 102.5 fl (82-101) H 02/22/23 17:42 MCH 33.2 pg (27-33) H 02/22/23 17:42 MCHC 32.4 g/dL (30-55) 02/22/23 17:42 RDW 12.3 % (12.1-15.1) 02/22/23 17:42 Plt Count 230 10^3/cmm (157-399) 02/22/23 17:42 MPV 11.3 fL (7.4-10.4) H 02/22/23 17:42 Neut % (Auto) 73.5 % 02/22/23 17:42 Lymph % (Auto) 15.8 % 02/22/23 17:42 Wharton % (Auto) 8.2 % 02/22/23 17:42 Eos % (Auto) 1.4 % 02/22/23 17:42 Baso % (Auto) 0.3 % 02/22/23 17:42 Neut # (Auto) 5.64 10^3/uL (1.8-7.7) 02/22/23 17:42 Lymph # (Auto) 1.2 10^3/uL (0.8-4.8) 02/22/23 17:42 [place] # (Auto) 0.6 10^3/uL (0.2-0.9) 02/22/23 17:42 Eos # (Auto) 0.1 10^3/uL (0.0-0.8) 02/22/23 17:42 Baso # (Auto) 0.0 10^3/uL (0.0-0.1) 02/22/23 17:42 Nucleated RBC % (auto) 0 % 02/22/23 17:42 Nucleated RBCs # 0.0 /100WBC 02/22/23 17:42 Sodium 138 mmol/L (136-145) 02/22/23 17:42 Potassium 4.4 mmol/L (3.5-5.1) 02/22/23 17:42 Chloride 102 mmol/L (98-107) 02/22/23 17:42 Carbon Dioxide 27 mmol/L (22-29) 02/22/23 17:42 Anion Gap 13.4 (5-19) 02/22/23 17:42 BUN 10 mg/dL (8-23) 02/22/23 17:42 Creatinine 0.7 mg/dL (0.7-1.2) 02/22/23 17:42 GFR Calculation Not Reportable 02/22/23 17:42 Glucose 95 mg/dL (65-115) 02/22/23 17:42 POC Glucose 127 mg/dL (70-110) H 02/22/23 18:38 Calculated Osmolality 285 mOsm/kg (285-295) 02/22/23 17:42 Calcium 9.3 mg/dL (8.5-10.5) 02/22/23 17:42 Total Bilirubin 0.5 mg/dL (0.15-1.2) 02/22/23 17:42 AST 20 U/L (0-40) 02/22/23 17:42 ALT 22 U/L (0-41) 02/22/23 17:42 Alkaline Phosphatase 134 U/L (40-130) H 02/22/23 17:42 Troponin T Baseline 17 ng/L (0-15) H 02/22/23 17:42 Troponin T 120 Minute 19.76 ng/L (0-15) H 02/22/23 19:32 Delta Troponin T 2.76 ABS# (0-10) 02/22/23 19:32 Total Protein 6.3 g/dL (6.6-8.7) L 02/22/23 17:42 Albumin 3.9 g/dL (3.5-5.2) 02/22/23 17:42 Globulin 2.4 g/dL (1.3-4.6) 02/22/23 17:42 Urine Color Yellow (Yellow) 02/22/23 18:02 Urine Appearance Clear (CLEAR) 02/22/23 18:02 Urine pH 9 (5-7) H 02/22/23 18:02 Ur Specific [place] 1.020 (1.005-1.030) 02/22/23 18:02 Urine Protein Neg (Negative) 02/22/23 18:02 Urine Glucose (UA) Norm (Normal) 02/22/23 18:02 Urine Ketones 1+ (Negative) H 02/22/23 18:02 Urine Blood Neg (Negative) 02/22/23 18:02 Urine Nitrate Negative (Negative) 02/22/23 18:02 Urine Bilirubin Neg (Negative) 02/22/23 18:02 Prot Sulfosalicylic Acd Negative (Negative) 02/22/23 18:02 Urine Urobilinogen Neg mg/dL (Negative) 02/22/23 18:02 Ur Leukocyte Esterase Negative (Negative) 02/22/23 18:02 All radiology interpretation(s) finalized by discharge Discharge Plan Discharge Patient Disposition: Home Clinical Impression: Acute dyspnea, Panic disorder Condition: Stable Prescriptions: No Action polyethylene glycol 3350 [Miralax] 17 gram/dose powder 17 g PO DAILY ibuprofen 200 mg capsule 800 mg PO Q8H PRN multivitamin Tablet 1 tab PO DAILY alprazolam 2 mg tablet extended release 24 hr 2 mg PO .qhs Qty: 30 3RF paroxetine HCl 40 mg tablet See Rx Instructions .ROUTE .COMPLEX Qty: 60 11RF Dose Instruction: Take 1 tablet by mouth twice daily Rx Instructions: Take 1 tablet by mouth twice daily aspirin 81 mg tablet,delayed release (DR/EC) 81 mg PO DAILY clopidogrel 75 mg tablet 75 mg PO DAILY Qty: 90 3RF tamsulosin 0.4 mg capsule 0.8 mg PO DAILY Qty: 60 11RF atorvastatin 40 mg tablet 40 mg PO DAILY Qty: 30 0RF atorvastatin 40 mg tablet 40 mg PO DAILY Qty: 90 3RF Discharge Orders: Discharge ED (Routine); Ordered 02/22/23 Ordered By: Collin Horn Referrals: Shant Hagan, [Primary Care Provider] - 1-3 days Patient Instructions: Panic Disorder (ED), Dyspnea (ED), Opioid Safety, Pain Management Activity Restrictions/Additional Instructions: Follow-up with your doctor next week. Return for repeated episodes of chest discomfort, worsening shortness of breath, fever, other concerning symptoms. Coding Level of Care Code ED Food And Drug Inspector for Tello Garvin
[2023-02-22 17:13] VITALS: BP 153/82; PULSE 57; RESP 16; TEMP 36.5; O2SAT 95
--- NOTE | 2023-02-22 17:19 | ECG_ITS ---
[facility] Test Date: 2023-02-22 Pat Name: Jonnathan Tapia Department: Room: Gender: Male [employer]: : 1940 Requested By: Yoni De Leon Order Number: [id number] Nancy MD: Magnus Connors M.D. Measurements Intervals [place] Rate: 55 P: 7 LA: 167 QRS: -13 QRSD: 81 T: 54 QT: 439 QTc: 422 Interpretive Statements SINUS BRADYCARDIA Compared to ECG 01/20/2019 22:31:19 Sinus rhythm no longer present Left-axis deviation no longer present Electronically Signed On 02-22-2023 19:36:39 CDT by Magnus Connors M.D. [id number]
[2023-02-22 17:55] LABS: Basophils % 0.3 %; Eosinophils # 0.1 10^3/uL (0.0-0.8); Eosinophils % 1.4 %; Hematocrit 40.7 % (37-53); Lymphocytes # 1.2 10^3/uL (0.8-4.8); Lymphocytes % 15.8 %; Mean Corpuscular HGB Conc 32.4 g/dL (30-55); Mean Corpuscular Hemoglobin 33.2 pg (27-33); Mean Corpuscular Volume 102.5 fl (82-101); Mean Platelet Volume 11.3 fL (7.4-10.4); Monocytes # 0.6 10^3/uL (0.2-0.9); Monocytes % 8.2 %; Neutrophils # 5.64 10^3/uL (1.8-7.7); Neutrophils % 73.5 %; Nucleated Red Blood Cells % 0 %; Platelet Count 230 10^3/cmm (157-399); Red Blood Count 3.97 10^6/uL (3.85-5.65); Red Cell Distribution Width 12.3 % (12.1-15.1); White Blood Count 7.67 10^3/uL (3.29-11.43)
[2023-02-22] MEDS: LORazepam 2 mg Tablet PO (18:14)
[2023-02-22 18:15] LABS: Add Urine Microscopic? NO; Charge for UA Resulting for Rev
[2023-02-22 18:17] LABS: Troponin(5th) Baseline 17 ng/L (0-15)
[2023-02-22 18:18] LABS: Alanine Aminotransferase 22 U/L (0-41); Albumin Level 3.9 g/dL (3.5-5.2); Alkaline Phosphatase 134 U/L (40-130); Anion Gap 13.4 (5-19); Aspartate Amino Transferase 20 U/L (0-40); Blood Urea Nitrogen 10 mg/dL (8-23); Calcium 9.3 mg/dL (8.5-10.5); Carbon Dioxide 27 mmol/L (22-29); Chloride 102 mmol/L (98-107); Globulin 2.4 g/dL (1.3-4.6); Glucose 95 mg/dL (65-115); Osmolality Calculated 285 mOsm/kg (285-295); Potassium 4.4 mmol/L (3.5-5.1); Sodium 138 mmol/L (136-145); Total Bilirubin 0.5 mg/dL (0.15-1.2); Total Protein 6.3 g/dL (6.6-8.7)
[2023-02-22 18:19] LABS: Glucose Point of Care 536 mg/dL (70-110)
[2023-02-22 18:26] LABS: Bilirubin Urine Neg (Negative); Blood Urine Neg (Negative); Glucose Urine UA Norm (Normal); Ketones Urine 1+ (Negative); Leukocyte Esterase Urine Negative (Negative); Nitrate Urine Negative (Negative); Protein Urine Neg (Negative); Sulfosalicylic Acid Urine Negative (Negative); Urine Appearance Clear (CLEAR); Urine Color Yellow (Yellow); Urobilinogen Urine Neg (Negative); pH Urine 9 (5-7)
[2023-02-22 18:43] LABS: Glucose Point of Care 127 mg/dL (70-110)
--- NOTE | 2023-02-22 19:43 | ECG_ITS ---
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 Measurements Intervals [place] Rate: 73 P: 40 MN: 193 QRS: -27 QRSD: 85 T: 37 QT: 396 QTc: 438 Interpretive Statements SINUS RHYTHM BORDERLINE LEFT AXIS DEVIATION [QRS AXIS < -20] Compared to ECG 02/22/2023 17:19:37 Sinus bradycardia no longer present Electronically Signed On 02-22-2023 19:54:27 CDT by Magnus Connors M.D. [id number]
[2023-02-22 20:00] LABS: Troponin 5 2HR 19.76 ng/L (0-15)
[2023-02-22 20:02] LABS: Troponin 5 2HR Delta 2.76 ABS# (0-10)
[2023-02-22 20:32] VITALS: BP 144/94; PULSE 73; RESP 16; O2SAT 95
== END 2023-02-22 20:33 | disposition home or self-care (01) ==
PROVIDERS: Family Medicine; Emergency Provider Emergency Medicine; PCP Family Medicine
DX: F41.0 Panic disorder [episodic paroxysmal anxiety] (principal); R06.00 Dyspnea, unspecified; Z79.02 Long term (current) use of antithrombotics/antiplatelets; Z79.82 Long term (current) use of aspirin; E78.5 Hyperlipidemia, unspecified; F17.210 Nicotine dependence, cigarettes, uncomplicated
CPT/HCPCS: 36415; 36416; 71045; 80053; 81003; 82962; 84484; 85025; 93005; 99285

== ENCOUNTER → 2023-02-26 11:00 | Outpatient (BNVA) | payer MEDICARE, OTHER, SELFPAY | PROVIDERS: PCP Family Medicine; Visit Provider Psychiatry & Neurology Psychiatry | DX: R40.20 Unspecified coma (principal) | CPT/HCPCS: 80307 ==

== ENCOUNTER → 2023-04-02 15:19 | Outpatient (BNVA) | payer MEDICARE, OTHER, SELFPAY | PROVIDERS: PCP Family Medicine; Visit Provider Psychiatry & Neurology Psychiatry | DX: R40.20 Unspecified coma (principal) | CPT/HCPCS: 80307 ==

== ENCOUNTER 2023-08-09 11:41 | Emergency (ER) | payer MEDICARE, OTHER, SELFPAY ==
[2023-08-09 11:47] VITALS: BP 143/71; PULSE 56; RESP 17; O2SAT 98
--- NOTE | 2023-08-09 12:01 | XR_ITS ---
WS: [id number] Exam: XR hand RT min 3V* [id number] Date/Time of Exam: 08/09/2023 12:01 PM Reason For Exam: thumb lac, vs table saw Extensive soft tissue laceration of the thumb. No fracture or bony injury identified. There is air in the soft tissues of the thumb. Advanced degenerative changes of the IP joints and MP joints. No soft tissue foreign body identified. 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 IMPRESSION: 1. Extensive soft tissue laceration of the thumb but no bony injury identified. 2. Advanced degenerative changes.
[2023-08-09] MEDS: tetanus-dipt-pertussis 0.5 mL SDV IM (12:36)
[2023-08-09] MEDS: cefTRIAXone 1,000 MG in water for injection-sterile 2.1 ML 2.10000000000000009 MG IM (12:38)
[2023-08-09] MEDS: lidocaine 1% INJ 10 mL (per mL) XX (12:39)
--- NOTE | 2023-08-09 13:17 | W.ED.WOUNDLC ---
HPI - Wound/Laceration General: Chief Complaint: Wound/Laceration Stated Complaint: right hand thumb lac Time Seen by Provider: 08/09/23 11:55 History of Present Illness: Patient presents to the ER with complaint of laceration of his right thumb hit by a table saw. Patient's last known tetanus is unknown. Patient is on Plavix as a blood thinner. Bleeding is controlled. Review of Systems General: Reports: 10 or more systems reviewed and unremarkable except in HPI and below PFSH ED PFSH: Medical History Psychiatric care Depression Right inguinal hernia Hyperlipidemia Anxiety BPH (benign prostatic hyperplasia) Back pain with history of spinal surgery Surgical History Status post right inguinal hernia repair History of back surgery Status post left knee replacement H/O shoulder surgery bilateral rotator cuff repairs H/O circumcision H/O colonoscopy 3 yrs ago Family History Denies family history of Diabetes Anesthesia complication Bleeding disorder Cancer Social History Smoking and tobacco/nicotine status: current every day tobacco/nicotine user cigarettes Packs smoked per day: 1 [ Other cigarette details: STARTED SMOKING IN 1959] Quit status (tobacco/nicotine): not considering quitting Second hand smoke exposure: No Alcohol intake: current Alcohol intake frequency: few times a week Substance/Drug Use: never Household members: family Marital status: Single Current occupational status: retired Physical Exam Const: COMMON NORMALS: no acute distress, average body habitus, patient oriented x3, no limitations, healthy appearing, alert and well nourished HENMT: COMMON NORMALS: normocephalic, atraumatic, hearing grossly normal bilaterally, external ears normal, Normal external nose present, moist oral mucous membranes and oropharynx normal HEAD & SCALP: normocephalic and atraumatic NOSE: Normal external nose present EXTERNAL EAR: Yes external ears normal Neck/C-Spine: COMMON NORMALS: no JVD Chest: COMMONS NORMALS: normal inspection of the chest and normal palpation of entire chest wall Resp: COMMON NORMALS: normal respiratory effort, No retractions, No use of accessory muscles and clear to auscultation bilaterally AUSCULTATION: clear to auscultation bilaterally Cardio: COMMON NORMALS: no JVD, regular rate, regular rhythm, S1 normal heart sound present, S2 normal heart sound present, No gallops present (Cardio), No clicks present (Cardio), No murmurs present (Cardio) and No rub (Cardio) RATE: regular rate RHYTHM: regular rhythm HEART SOUNDS: S1 normal heart sound present and S2 normal heart sound present GI: COMMON NORMALS: Normal to inspection, nondistended, normoactive bowel sounds present, Soft to palpation, non-tender, No hepatosplenomegaly present and no masses PALPATION: Yes Soft to palpation and Yes No hepatosplenomegaly present Extremity: OTHER: Laceration to right thenar region of thumb approximately 7 cm flap-like distribution into the muscle, neurovascularly tendon is intact. Bleeding is controlled. Neuro: COMMON NORMALS: patient oriented x3 SENSORIUM/ORIENTATION: Yes alert Procedures Laceration Laceration 1: Site: hand (Right thumb) Side (If applicable): right Size (cm): 7 Description: flap and irregular Depth: simple, single layer and involves muscle layer Local Anesthetic: lidocaine 1% Amount of anesthesia used (mL): 10 Pre-repair: wound explored, irrigated extensively, deep structures intact and wound margins revised Skin layer closed with: nylon Size (cm): 4-0 Number of sutures: 18 Course Vital Signs: Vital signs: Vital Signs Pulse Rate 56 L 08/09/23 11:47 Respiratory Rate 17 08/09/23 11:47 Blood Pressure 143/71 08/09/23 11:47 Pulse Oximetry 98 08/09/23 11:47 Oxygen Delivery Me thod Room Air 08/09/23 11:47 MDM - Wound/Laceration Medical Decision Making Patient was Nestabs approximately 10 mL of lidocaine plain in a ring block type fashion, x-ray was obtained which showed no bony involvement. Wound was cleaned out extensively with Betadine saline solution, patient was given Rocephin 1 g IM has tetanus updated. Edges were approximated and wound was sutured closed with a approximately 18 sutures of 4-0 nylon in a interrupted fashion. Patient tolerated procedure well. Patient will have [employer] and [facility] called into his pharmacy. Patient should follow-up with his PCP to have the stitches removed and reevaluated in approximately Differential Diagnosis Likely laceration; Unlikely abscess, abrasion or avulsion of skin Medical Records I reviewed the patient's medical records. Lab Data I reviewed the patient's lab results. All radiology interpretation(s) finalized by discharge Discharge Plan Discharge Patient Disposition: Home Clinical Impression: Laceration of thumb Qualifiers: Encounter type: initial encounter Damage to nail status: without damage Foreign body presence: without foreign body Laterality: right Qualified Code(s): S61.011A - Laceration without foreign body of right thumb without damage to nail, initial encounter Condition: Stable Prescriptions: New hydrocodone-acetaminophen 5-325 mg tablet 1 tab PO Q6H PRN (Reason: pain) Qty: 14 0RF cephalexin 500 mg capsule 500 mg PO Q6H 7 Days Qty: 28 0RF No Action polyethylene glycol 3350 [Miralax] 17 gram/dose powder 17 g PO DAILY ibuprofen 200 mg capsule 800 mg PO Q8H PRN multivitamin Tablet 1 tab PO DAILY paroxetine HCl 40 mg tablet See Rx Instructions .ROUTE .COMPLEX Qty: 60 11RF Dose Instruction: Take 1 tablet by mouth twice daily Rx Instructions: Take 1 tablet by mouth twice daily alprazolam 1 mg tablet extended release 24 hr 1 mg PO DAILY Qty: 30 2RF Rx Instructions: Combine with 0.5 mg for total of 1.5 mg HS alprazolam 0.5 mg tablet extended release 24 hr 0.5 mg PO DAILY Qty: 30 2RF buprenorphine-naloxone 8-2 mg film 0.5 film sublingual TID Qty: 45 2RF aspirin 81 mg tablet,delayed release (DR/EC) 81 mg PO DAILY atorvastatin 40 mg tablet 40 mg PO DAILY Qty: 90 3RF clopidogrel 75 mg tablet 75 mg PO DAILY Qty: 90 3RF tamsulosin 0.4 mg capsule 0.8 mg PO DAILY Qty: 180 3RF Discharge Orders: Discharge ED (Routine); Ordered 08/09/23 Ordered By: Garo Em Referrals: Shant Hagan DO [Primary Care Provider] - 2 weeks Patient Instructions: Care For Your Stitches (ED), Laceration (ED), Opioid Safety, Pain Management Activity Restrictions/Additional Instructions: Please take all your medicine as prescribed. Please follow wound care instructions for your laceration. Please follow-up with your family practice physician in approximately 14 days for reevaluation and possible suture removal. Coding Level of Care Code ED Gambling Monitor for Tello Garvin
== END 2023-08-09 13:54 | disposition home or self-care (01) ==
PROVIDERS: Emergency Provider Emergency Medicine; PCP Family Medicine
DX: S61.011A Laceration without foreign body of right thumb without damage to nail, initial encounter (principal); Z79.02 Long term (current) use of antithrombotics/antiplatelets; Z79.82 Long term (current) use of aspirin; E78.5 Hyperlipidemia, unspecified; F17.210 Nicotine dependence, cigarettes, uncomplicated; W27.0XXA Contact with workbench tool, initial encounter; Z23 Encounter for immunization
CPT/HCPCS: 12002; 73130; 90471; 90715; 96372; 99284; J0696

== ENCOUNTER 2023-08-19 13:59 | Emergency (ER) | payer MEDICARE, OTHER, SELFPAY ==
[2023-08-19] VITALS (7 sets, daily range): BP systolic 146–195; BP diastolic 68–82; PULSE 51–60; RESP 16–18; TEMP 36.8; O2SAT 91–96
--- NOTE | 2023-08-19 14:40 | CTR_ITS ---
PROCEDURE INFORMATION: Exam: CT Abdomen And Pelvis With Contrast Exam date and time: 08/19/2023 4:47 PM Age: 82 years old Clinical indication: Abdominal pain; Patient HX: Vomitting /no appetite/recent fall; Additional info: Abd pain TECHNIQUE: Imaging protocol: Computed tomography of the abdomen and pelvis with contrast. Radiation optimization: All CT scans at this facility use at least one of these dose optimization techniques: automated exposure control; mA and/or kV adjustment per patient size (includes targeted exams where dose is matched to clinical indication); or iterative reconstruction. Contrast material: OMNI 350; Contrast volume: 30 ml; Contrast route: INTRAVENOUS (IV); COMPARISON: CR XR chest 1V portable [id number] 02/22/2023 5:59 PM RADIATION DOSE METRICS: Total DLP (mGy-cm): 616.73 FINDINGS: Diaphragm: Small hiatal hernia. Liver: Calcified granulomas in the liver. 3.0 cm triangular shaped hypodensity in the subcapsular right liver lobe is most likely focal fatty infiltration. Gallbladder and bile ducts: Fluid distended gallbladder. No visible stones or wall thickening. Mild dilatation of the bile ducts with the common bile duct measuring 8 mm. Pancreas: Normal. No ductal dilation. Spleen: Calcified granulomas in the spleen. Adrenal glands: Normal. No mass. Kidneys and ureters: The kidneys are normal. No hydronephrosis. Excreted contrast in the renal collecting systems could obscure small calculi. Stomach and bowel: Duodenal diverticulum. Diverticulosis of the distal colon. No diverticulitis. The stomach and small bowel are unremarkable. No wall thickening or obstruction. Moderate stool in the colon. Appendix: The appendix is visualized and is normal. Intraperitoneal space: Unremarkable. No free air. No significant fluid collection. Vasculature: Mild calcified arterial plaque. No aneurysm. Lymph nodes: Unremarkable. No enlarged lymph nodes. Urinary bladder: Unremarkable as visualized. Reproductive: Mildly enlarged prostate. Bones/joints: Scoliosis and severe degenerative changes in the spine. Mild T11 compression fracture. Posterior mechanical and bony fusion of L4-S1 with anterior spacer at L5-S1. L4-L5 decompressive laminectomies. Degenerative retrograde subluxations of L1 on L2 and L2 on L3. Soft tissues: Unremarkable. CT/CT abdomen pelvis w con* [id number] IMPRESSION: 1. Mild dilatation of the bile ducts with no intraductal filling defect visualized. Correlation with laboratory values recommended. This can be further evaluated with MRCP as clinically indicated. 2. 3.0 cm wedge-shaped hypodensity in the right liver lobe is most likely focal fatty infiltration. 3. Mild diverticulosis of the colon. No diverticulitis.
[2023-08-19 14:49] LABS: Add Urine Microscopic? NO; Charge for UA Resulting for Rev
[2023-08-19 14:55] LABS: Urine Appearance Clear (CLEAR); Urine Color Yellow (Yellow)
[2023-08-19 14:56] LABS: Bilirubin Urine Neg (Negative); Blood Urine Neg (Negative); Glucose Urine UA Norm (Normal); Ketones Urine Negative (Negative); Leukocyte Esterase Urine Negative (Negative); Nitrate Urine Negative (Negative); Protein Urine Neg (Negative); Specific Gravity, Urine 1.005 (1.005-1.030); Urobilinogen Urine Neg (Negative); pH Urine 6 (5-7)
[2023-08-19 15:04] LABS: Basophils # 0.1 10^3/uL (0.0-0.1); Basophils % 0.8 %; Eosinophils # 0.1 10^3/uL (0.0-0.8); Eosinophils % 1.4 %; Hematocrit 38.3 % (37-53); Lymphocytes # 0.9 10^3/uL (0.8-4.8); Lymphocytes % 11.7 %; Mean Corpuscular HGB Conc 32.1 g/dL (30-55); Mean Corpuscular Volume 99.7 fl (82-101); Mean Platelet Volume 11.1 fL (7.4-10.4); Neutrophils % 72.7 %; Nucleated Red Blood Cells % 0 %; Platelet Count 240 10^3/cmm (157-399); Red Blood Count 3.84 10^6/uL (3.85-5.65); Red Cell Distribution Width 13.1 % (12.1-15.1); White Blood Count 7.29 10^3/uL (3.29-11.43)
--- NOTE | 2023-08-19 15:22 | PC.PHAR ---
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
[2023-08-19] MEDS: ondansetron 2 mg/ML SDV 2 mL 4 MG IVP (15:24)
[2023-08-19 15:40] LABS: SARS Covid-2 Antigen negative (Negative)
[2023-08-19 15:55] LABS: INR 1.03 (0.8-1.2)
[2023-08-19 16:02] LABS: Alanine Aminotransferase 20 U/L (0-41); Albumin Level 3.7 g/dL (3.5-5.2); Alkaline Phosphatase 143 U/L (40-130); Anion Gap 12.1 (5-19); Aspartate Amino Transferase 20 U/L (0-40); Blood Urea Nitrogen 11 mg/dL (8-23); Calcium 8.7 mg/dL (8.5-10.5); Carbon Dioxide 28 mmol/L (22-29); Chloride 103 mmol/L (98-107); Glucose 101 mg/dL (65-115); Osmolality Calculated 288 mOsm/kg (285-295); Potassium 4.1 mmol/L (3.5-5.1); Sodium 139 mmol/L (136-145); Total Bilirubin 0.2 mg/dL (0.15-1.2); Total Protein 6.7 g/dL (6.6-8.7)
--- NOTE | 2023-08-19 16:07 | W.ED.NAVMDI ---
HPI - Nausea/Vomiting/Diarrhea General: Chief complaint: Nausea/Vomiting/Diarrhea Stated complaint: back pain,cough,n,v Time Seen by Provider: 08/19/23 14:31 History of Present Illness: 82-year-old male presents emergency department with complaints of feeling congested. He states he is also started feeling generalized fatigue and malaise and also states that he had 2 episodes of nausea and vomiting. He states that symptoms started 3 days ago and feels that his congestion is worse when he wakes up in the morning. Patient states that he did fall backwards 3 days ago and hit the left side of his back in the kidney area and is concerned that he may have injured his kidney. He states he is able to ambulate without difficulty. He states he does feel like the muscle in his back hurts when he walks. He denies fevers chills or night sweats. He denies diarrhea. Associated symtoms: Reports fatigue and malaise Review of Systems General: Reports: 10 or more systems reviewed and unremarkable except in HPI and below Const: Reports: fatigue and malaise; Denies: fever(s) Resp: Reports: non-productive cough; Denies: dyspnea or wheezing : Reports: flank pain Musc: Reports: back pain PFSH ED PFSH: Medical History Psychiatric care Depression Right inguinal hernia Hyperlipidemia Anxiety BPH (benign prostatic hyperplasia) Back pain with history of spinal surgery Surgical History Status post right inguinal hernia repair History of back surgery Status post left knee replacement H/O shoulder surgery bilateral rotator cuff repairs H/O circumcision H/O colonoscopy 3 yrs ago Family History Denies family history of Diabetes Anesthesia complication Bleeding disorder Cancer Social History Smoking and tobacco/nicotine status: current every day tobacco/nicotine user cigarettes Packs smoked per day: 1 [ Other cigarette details: STARTED SMOKING IN 1959] Quit status (tobacco/nicotine): not considering quitting Second hand smoke exposure: No Alcohol intake: current Alcohol intake frequency: few times a week Substance/Drug Use: never Household members: family Marital status: Single Current occupational status: retired Physical Exam Narrative: EXAM NARRATIVE: Constitutional: the patient appears well nourished and of normal development. Vital signs as documented. No acute distress at present. Alert and oriented-to person, place, time and situation. Head, eyes, ears, nose, mouth, throat: Normocephalic, atraumatic. Pupils-equal, round, reactive to light. No scleral icterus. Normal-appearing external ears. Normal appearing nasal turbinates, no drainage. No obvious oral lesions, posterior oropharynx without erythema or exudates. Neck: Supple, trachea is midline, no lymphadenopathy, no jugular venous distension, thyromegaly, or carotid bruits. Carotid upstrokes are brisk bilaterally. Lungs: clear to auscultation to all lung zepeda. Symmetrical rise and fall of chest, no obvious signs of increased work of breathing at present. Cardiac: Regular rate and rhythm, positive S1, S2. No murmurs, rubs or gallops that I can appreciate Abdomen: Soft, non-tender to palpation, normal active bowel sounds to all quadrants. No palpable masses, no organomegaly and abdominal bruits. Extremities: 2+ pulses in the upper extremities that are equal bilaterally, 2+ pulses in the lower extremities that are equal bilaterally. Non-edematous. Moves all extremities well, sensation to all extremities are noted. Skin: Warm, dry, intact. Back: Normal alignment, there is no obvious bruising or discoloration to the area that the patient was concerned that he had injured. He does not appear to be tender to palpation or percussion to the flank area. Course Vital Signs: Vital signs: Vital Signs Temperature 98.2 F 08/19/23 14:23 Pulse Rate 54 L 08/19/23 18:00 Respiratory Rate 16 08/19/23 18:00 Blood Pressure 146/82 08/19/23 18:00 Pulse Oximetry 92 08/19/23 18:00 Oxygen Delivery Me thod Room Air 08/19/23 18:00 MDM - Nausea/Vomiting/Diarrhea Medical Decision Making Physical exam completed document I did obtain a CBC and CMP which were essentially normal. COVID swab was negative, CT abdomen pelvis was negative for acute findings but did demonstrate mild dilation of the bile ducts with no intra ductal filling defect. AST and ALT and total bilirubin are within normal limits. There is mild diverticulosis without diverticulitis. I will provide the patient antinausea medication and discharge him home with recommended follow-up with his PCP. Medical Records I reviewed the patient's medical records. Lab Data I reviewed the patient's lab results. 08/19/23 14:55 08/19/23 15:31 Radiology Impressions Abdomen/Pelvis CT 08/19/23 14:40 IMPRESSION: 1. Mild dilatation of the bile ducts with no intraductal filling defect visualized. Correlation with laboratory values recommended. This can be further evaluated with MRCP as clinically indicated. 2. 3.0 cm wedge-shaped hypodensity in the right liver lobe is most likely focal fatty infiltration. 3. Mild diverticulosis of the colon. No diverticulitis. Laboratory Results WBC 7.29 10^3/uL (3.29-11.43) 08/19/23 14:55 RBC 3.84 10^6/uL (3.85-5.65) L 08/19/23 14:55 Hgb 12.30 g/dL (11.27-16.99) 08/19/23 14:55 Hct 38.3 % (37-53) 08/19/23 14:55 MCV 99.7 fl (82-101) 08/19/23 14:55 MCH 32.0 pg (27-33) 08/19/23 14:55 MCHC 32.1 g/dL (30-55) 08/19/23 14:55 RDW 13.1 % (12.1-15.1) 08/19/23 14:55 Plt Count 240 10^3/cmm (157-399) 08/19/23 14:55 MPV 11.1 fL (7.4-10.4) H 08/19/23 14:55 Neut % (Auto) 72.7 % 08/19/23 14:55 Lymph % (Auto) 11.7 % 08/19/23 14:55 Grand % (Auto) 13.0 % 08/19/23 14:55 Eos % (Auto) 1.4 % 08/19/23 14:55 Baso % (Auto) 0.8 % 08/19/23 14:55 Neut # (Auto) 5.30 10^3/uL (1.8-7.7) 08/19/23 14:55 Lymph # (Auto) 0.9 10^3/uL (0.8-4.8) 08/19/23 14:55 Grand # (Auto) 1.0 10^3/uL (0.2-0.9) H 08/19/23 14:55 Eos # (Auto) 0.1 10^3/uL (0.0-0.8) 08/19/23 14:55 Baso # (Auto) 0.1 10^3/uL (0.0-0.1) 08/19/23 14:55 Nucleated RBC % (auto) 0 % 08/19/23 14:55 Nucleated RBCs # 0.0 /100WBC 08/19/23 14:55 PT 13.90 SECONDS (12.1-14.9) 08/19/23 15:31 INR 1.03 (0.8-1.2) 08/19/23 15:31 Sodium 139 mmol/L (136-145) 08/19/23 15:31 Potassium 4.1 mmol/L (3.5-5.1) 08/19/23 15:31 Chloride 103 mmol/L (98-107) 08/19/23 15:31 Carbon Dioxide 28 mmol/L (22-29) 08/19/23 15:31 Anion Gap 12.1 (5-19) 08/19/23 15:31 BUN 11 mg/dL (8-23) 08/19/23 15:31 Creatinine 0.7 mg/dL (0.7-1.2) 08/19/23 15:31 GFR Calculation Not Reportable 08/19/23 15:31 Glucose 101 mg/dL (65-115) 08/19/23 15:31 Calculated Osmolality 288 mOsm/kg (285-295) 08/19/23 15:31 Calcium 8.7 mg/dL (8.5-10.5) 08/19/23 15:31 Total Bilirubin 0.2 mg/dL (0.15-1.2) 08/19/23 15:31 AST 20 U/L (0-40) 08/19/23 15:31 ALT 20 U/L (0-41) 08/19/23 15:31 Alkaline Phosphatase 143 U/L (40-130) H 08/19/23 15:31 Total Protein 6.7 g/dL (6.6-8.7) 08/19/23 15:31 Albumin 3.7 g/dL (3.5-5.2) 08/19/23 15:31 Globulin 3.0 g/dL (1.3-4.6) 08/19/23 15:31 Urine Color Yellow (Yellow) 08/19/23 14:44 Urine Appearance Clear (CLEAR) 08/19/23 14:44 Urine pH 6 (5-7) 08/19/23 14:44 Ur Specific Elsa 1.005 (1.005-1.030) 08/19/23 14:44 Urine Protein Neg (Negative) 08/19/23 14:44 Urine Glucose (UA) Norm (Normal) 08/19/23 14:44 Urine Ketones Negative (Negative) 08/19/23 14:44 Urine Blood Neg (Negative) 08/19/23 14:44 Urine Nitrate Negative (Negative) 08/19/23 14:44 Urine Bilirubin Neg (Negative) 08/19/23 14:44 Urine Urobilinogen Neg mg/dL (Negative) 08/19/23 14:44 Ur Leukocyte Esterase Negative (Negative) 08/19/23 14:44 SARS-CoV-2 Ag (Rapid) negative (Negative) 08/19/23 15:12 All radiology interpretation(s) finalized by discharge Discharge Plan Discharge Patient Disposition: Home Clinical Impression: Gastroenteritis Condition: Stable Prescriptions: New ondansetron HCl 4 mg tablet 4 mg PO Q6H PRN (Reason: nausea and vomiting) Qty: 14 0RF No Action polyethylene glycol 3350 [Miralax] 17 gram/dose powder 17 g PO DAILY multivitamin Tablet 1 tab PO QAM buprenorphine-naloxone 8-2 mg film 0.5 film sublingual TID Qty: 45 2RF aspirin 81 mg tablet,delayed release (DR/EC) 81 mg PO QAM cephalexin 500 mg capsule 500 mg PO Q6H Rx Instructions: for 7 days (rx filled 08/09/23) ibuprofen 200 mg Tablet 800 mg PO Q6H PRN (Reason: Pain) atorvastatin 40 mg tablet 40 mg PO BEDTIME clopidogrel 75 mg tablet 75 mg PO QPM tamsulosin 0.4 mg capsule 0.8 mg PO QAM paroxetine HCl 40 mg tablet 40 mg PO BID alprazolam 1 mg tablet extended release 24 hr 1 mg PO BEDTIME Rx Instructions: Combine with 0.5 mg for total of 1.5 mg HS alprazolam 0.5 mg tablet extended release 24 hr 0.5 mg PO BEDTIME Rx Instructions: with 1mg Discharge Orders: Discharge ED (Routine); Ordered 08/19/23 Ordered By: Con Smith Referrals: Shant Hagan DO [Primary Care Provider] - Discharge Diet: Usual diet Discharge Activity: Resume usual activity Patient Instructions: Opioid Safety, Pain Management Activity Restrictions/Additional Instructions: Activity Restrictions/Additional Instructions: Thank you for choosing [facility] [place] for your healthcare needs today. Please realize that you were seen in the Emergency Department and that we are providing you with an emergency medical screening exam and this may not be a complete and all inclusive of all the testing and or medical work-up that you may need to determine your ailment or severity of your illness. It is very important that you follow-up as instructed with your Primary care provider or Specialist for additional evaluation and to discuss your medical treatment plan. You may return to the Emergency Department should you have concerns or if your condition changes or worsens in any way. Coding Level of Care Code ED Mining Technician for Tello Garvin
[2023-08-19] MEDS: iohexol 350 mg/mL 500 mL Btl (per mL) IV (16:57)
== END 2023-08-19 18:29 | disposition home or self-care (01) ==
PROVIDERS: Emergency Provider Internal Medicine; PCP Family Medicine
DX: K52.9 Noninfective gastroenteritis and colitis, unspecified (principal); Z79.02 Long term (current) use of antithrombotics/antiplatelets; Z79.82 Long term (current) use of aspirin; Z11.52 Encounter for screening for COVID-19; E78.5 Hyperlipidemia, unspecified; F17.210 Nicotine dependence, cigarettes, uncomplicated
CPT/HCPCS: 36415; 74177; 80053; 81003; 85025; 85610; 87426; 96374; 99285; J2405; Q9967

== ENCOUNTER → 2023-08-26 09:54 | Outpatient (BNVA) | payer MEDICARE, OTHER, SELFPAY | PROVIDERS: PCP Nurse Practitioner Family; Visit Provider Nurse Practitioner Family | DX: R06.2 Wheezing (principal); R06.02 Shortness of breath | CPT/HCPCS: 71046 ==

== ENCOUNTER → 2023-09-12 12:58 | Outpatient (BNVA) | payer MEDICARE, OTHER, SELFPAY | PROVIDERS: PCP Family Medicine; Visit Provider Thoracic Surgery (Cardiothoracic Vascular Surgery) | DX: I96 Gangrene, not elsewhere classified (principal); L98.492 Non-pressure chronic ulcer of skin of other sites with fat layer exposed | CPT/HCPCS: 11042; 99213 ==

== ENCOUNTER → 2023-12-24 16:00 | Outpatient (BNVA) | payer MEDICARE, OTHER, SELFPAY | PROVIDERS: PCP Nurse Practitioner Family; Visit Provider Family Medicine | DX: R40.20 Unspecified coma (principal); F41.0 Panic disorder [episodic paroxysmal anxiety]; E78.5 Hyperlipidemia, unspecified; D53.9 Nutritional anemia, unspecified; J44.9 Chronic obstructive pulmonary disease, unspecified; E55.9 Vitamin D deficiency, unspecified | CPT/HCPCS: 80053; 82306; 84443; 85025; 85651; 86140 ==

== ENCOUNTER 2024-01-04 12:32 | Emergency (ER) | payer MEDICARE, OTHER, SELFPAY ==
[2024-01-04 12:34] VITALS: BP 135/72; PULSE 62; RESP 18; TEMP 36.7; O2SAT 94; BMI 25.1
--- NOTE | 2024-01-04 13:31 | XRR_ITS ---
PROCEDURE INFORMATION: Exam: XR Chest Exam date and time: 01/04/2024 2:00 PM Age: 83 years old Clinical indication: Other: N/v dysphagia; Additional info: Anxiety, dysphagia, n/v TECHNIQUE: Imaging protocol: Radiologic exam of the chest. Views: 1 view. COMPARISON: CR XR chest 2V* [id number] 08/26/2023 10:08 AM FINDINGS: Lungs: Bibasilar atelectatic lung changes predominantly along the left lung base. Pleural spaces: Unremarkable. No pleural effusion. No pneumothorax. Heart/Mediastinum: Unremarkable. No cardiomegaly. Bones/joints: Bilateral narrowing of the glenohumeral joints without subchondral sclerosis. Chronic multilevel degenerative changes of the thoracic vertebrae. Shoulder suture anchor at the right humeral head present. XR/XR chest 1V portable [id number] IMPRESSION: No acute findings.
[2024-01-04 13:44] VITALS: PULSE 59; O2SAT 100
--- NOTE | 2024-01-04 14:09 | W.ED.NAVMDI ---
HPI - Nausea/Vomiting/Diarrhea General: Chief complaint: Nausea/Vomiting/Diarrhea Stated complaint: n/v Time Seen by Provider: 01/04/24 12:34 History of Present Illness: Patient presents to the ER with complaints of some nausea weakness and shakiness. Patient does admit he has anxiety and panic attacks. Patient says he recently lost his . Patient also says he is normally on Xanax and would like to be on 4 to 6 mg daily for panic attacks. He does see a telepsychiatrist. This doctor is weaning him off the Xanax has weaned him down to 1/2 mg daily. Patient says Xanax is the only thing that works and nothing else is ever helped. Patient did receive some Xanax and Zofran by the EMS patient states he is feeling much better now with no complaints now. Patient saw Dr. Montemayor proximately 2 weeks ago for some dysphagia and throat pain. Patient says he has appointment in approximately [address] Montemayor for follow-up. Patient says Dr. Oneill was post to do some test to try to figure out why he has throat pain and he was never called for your tests. Patient says he has dementia and sometimes does not remember things. Upon review of the chart it shows Dr. Montemayor angelina some blood did some lab tests at his last visit. Related Data Home Medications Medication Instructions Recorded Confirmed polyethylene glycol 3350 17 17 g PO DAILY 10/31/20 12/24/23 gram/dose oral powder (Miralax) aspirin 81 mg tablet,delayed 81 mg PO QAM 12/04/21 12/24/23 release multivitamin 1 tab PO QAM 12/27/21 12/24/23 clopidogrel 75 mg tablet 75 mg PO QPM 08/19/23 12/24/23 tamsulosin 0.4 mg capsule 0.8 mg PO QAM 08/19/23 12/24/23 Previous Rx's Medication Instructions Recorded albuterol sulfate 90 mcg/actuation 2 puff inhalation Q4H PRN 08/23/23 aerosol inhaler (Ventolin HFA) shortness of breath or wheezing #8.5 grams budesonide 160 mcg-glycopyr 9 2 inh inhalation BID #10.7 grams 08/23/23 mcg-formot 4.8 mcg/actuation HFA inhaler (Breztri Aerosphere) atorvastatin 40 mg tablet See Rx Instructions .Route 08/26/23 .COMPLEX #90 tabs alprazolam 0.5 mg tablet,extended 0.5 mg PO .HS #30 tabs 12/04/23 release 24 hr buprenorphine 8 mg-naloxone 2 mg 0.5 film sublingual TID #45 ea 12/04/23 sublingual film paroxetine HCl 40 mg tablet 40 mg PO BID #60 tabs 12/04/23 trazodone 50 mg tablet 100 mg (2 x 50 mg) PO .HS PRN 12/04/23 insomnia #60 tabs alprazolam 0.5 mg tablet (Xanax) 0.5 mg PO BID PRN anxiety #6 tabs 01/04/24 Allergies Allergy/AdvReac Type Severity Reaction Status Date / Time No Known Allergies Allergy Verified 12/24/23 15:18 Review of Systems General: Reports: 10 or more systems reviewed and unremarkable except in HPI and below PFSH ED PFSH: Medical History Psychiatric care Depression Right inguinal hernia Hyperlipidemia Anxiety BPH (benign prostatic hyperplasia) Back pain with history of spinal surgery Surgical History Status post right inguinal hernia repair History of back surgery Status post left knee replacement H/O shoulder surgery bilateral rotator cuff repairs H/O circumcision H/O colonoscopy 3 yrs ago Family History Denies family history of Diabetes Anesthesia complication Bleeding disorder Cancer Social History Smoking and tobacco/nicotine status: current every day tobacco/nicotine user cigarettes Packs smoked per day: 1 [ Other cigarette details: STARTED SMOKING IN 1959] Quit status (tobacco/nicotine): not considering quitting Second hand smoke exposure: No Alcohol intake: current Alcohol intake frequency: few times a week Substance/Drug Use: never Household members: family Marital status: Single Current occupational status: retired Physical Exam Const: COMMON NORMALS: no acute distress, average body habitus, patient oriented x3, no limitations, healthy appearing, alert and well nourished HENMT: COMMON NORMALS: normocephalic, atraumatic, hearing grossly normal bilaterally, external ears normal, Normal external nose present and moist oral mucous membranes HEAD & SCALP: normocephalic and atraumatic NOSE: Normal external nose present EXTERNAL EAR: Yes external ears normal Neck/C-Spine: COMMON NORMALS: full ROM, no lymphadenopathy, supple, no meningeal signs, no JVD and Thyroid normal THYROID: Thyroid normal Chest: COMMONS NORMALS: normal inspection of the chest and normal palpation of entire chest wall Resp: COMMON NORMALS: normal respiratory effort, No retractions, No use of accessory muscles and clear to auscultation bilaterally AUSCULTATION: clear to auscultation bilaterally Cardio: COMMON NORMALS: no JVD, regular rate, regular rhythm, S1 normal heart sound present, S2 normal heart sound present, No gallops present (Cardio), No clicks present (Cardio), No murmurs present (Cardio) and No rub (Cardio) RATE: regular rate RHYTHM: regular rhythm HEART SOUNDS: S1 normal heart sound present and S2 normal heart sound present GI: COMMON NORMALS: Normal to inspection, nondistended, normoactive bowel sounds present, Soft to palpation, non-tender, No hepatosplenomegaly present and no masses PALPATION: Yes Soft to palpation and Yes No hepatosplenomegaly present Neuro: COMMON NORMALS: patient oriented x3 SENSORIUM/ORIENTATION: Yes alert MENINGEAL SIGNS: Yes no meningeal signs Course Vital Signs: Vital signs: Vital Signs Temperature 98.0 F 01/04/24 12:34 Pulse Rate 63 01/04/24 16:15 Respiratory Rate 18 01/04/24 12:34 Blood Pressure 118/68 01/04/24 16:15 Pulse Oximetry 99 01/04/24 16:15 MDM - Nausea/Vomiting/Diarrhea Medical Decision Making Physical exam was performed as well as laboratory work and chest x-ray, all of which was essentially unremarkable, urine drug screen was negative. Unsure if patient has been taking Xanax recently or has been out for a while. We will provide patient with 6 Xanax pills as prescription sent to his pharmacy until he get back in with Dr. Montemayor. We did discuss the patient possibly overusing his prescription and by us giving him more his psychiatrist may not be happy with him. He understands and he is okay with this risk. Lab Data 01/04/24 14:20 01/04/24 14:20 Radiology Impressions Chest X-Ray 01/04/24 13:31 IMPRESSION: No acute findings. Laboratory Results WBC 8.13 10^3/uL (3.29-11.43) 01/04/24 14:20 RBC 3.96 10^6/uL (3.85-5.65) 01/04/24 14:20 Hgb 13.10 g/dL (11.27-16.99) 01/04/24 14:20 Hct 39.9 % (37-53) 01/04/24 14:20 MCV 100.8 fl (82-101) 01/04/24 14:20 MCH 33.1 pg (27-33) H 01/04/24 14:20 MCHC 32.8 g/dL (30-55) 01/04/24 14:20 RDW 12.6 % (12.1-15.1) 01/04/24 14:20 Plt Count 174 10^3/cmm (157-399) 01/04/24 14:20 MPV 11.1 fL (7.4-10.4) H 01/04/24 14:20 Neut % (Auto) 78.2 % 01/04/24 14:20 Lymph % (Auto) 13.8 % 01/04/24 14:20 [place] % (Auto) 6.2 % 01/04/24 14:20 Eos % (Auto) 1.1 % 01/04/24 14:20 Baso % (Auto) 0.2 % 01/04/24 14:20 Neut # (Auto) 6.36 10^3/uL (1.8-7.7) 01/04/24 14:20 Lymph # (Auto) 1.1 10^3/uL (0.8-4.8) 01/04/24 14:20 [place] # (Auto) 0.5 10^3/uL (0.2-0.9) 01/04/24 14:20 Eos # (Auto) 0.1 10^3/uL (0.0-0.8) 01/04/24 14:20 Baso # (Auto) 0.0 10^3/uL (0.0-0.1) 01/04/24 14:20 Nucleated RBC % (auto) 0 % 01/04/24 14:20 Nucleated RBCs # 0.0 /100WBC 01/04/24 14:20 Sodium 139 mmol/L (136-145) 01/04/24 14:20 Potassium 4.2 mmol/L (3.5-5.1) 01/04/24 14:20 Chloride 101 mmol/L (98-107) 01/04/24 14:20 Carbon Dioxide 30 mmol/L (22-29) H 01/04/24 14:20 Anion Gap 12.2 (5-19) 01/04/24 14:20 BUN 15 mg/dL (8-23) 01/04/24 14:20 Creatinine 0.6 mg/dL (0.7-1.2) L 01/04/24 14:20 GFR Calculation Not Reportable 01/04/24 14:20 Glucose 106 mg/dL (65-115) 01/04/24 14:20 Calculated Osmolality 289 mOsm/kg (285-295) 01/04/24 14:20 Calcium 9.1 mg/dL (8.5-10.5) 01/04/24 14:20 Total Bilirubin 0.3 mg/dL (0.15-1.2) 01/04/24 14:20 AST 19 U/L (0-40) 01/04/24 14:20 ALT 16 U/L (0-41) 01/04/24 14:20 Alkaline Phosphatase 187 U/L (40-130) H 01/04/24 14:20 Total Protein 6.9 g/dL (6.6-8.7) 01/04/24 14:20 Albumin 4.0 g/dL (3.5-5.2) 01/04/24 14:20 Globulin 2.9 g/dL (1.3-4.6) 01/04/24 14:20 Urine Color Yellow (Yellow) 01/04/24 14:31 Urine Appearance Clear (CLEAR) 01/04/24 14:31 Urine pH 7 (5-7) 01/04/24 14:31 Ur Specific [place] 1.010 (1.005-1.030) 01/04/24 14:31 Urine Protein Neg (Negative) 01/04/24 14:31 Urine Glucose (UA) Norm (Normal) 01/04/24 14:31 Urine Ketones Negative (Negative) 01/04/24 14:31 Urine Blood Neg (Negative) 01/04/24 14:31 Urine Nitrate Negative (Negative) 01/04/24 14:31 Urine Bilirubin Neg (Negative) 01/04/24 14:31 Urine Urobilinogen Norm mg/dL (Negative) 01/04/24 14:31 Ur Leukocyte Esterase Negative (Negative) 01/04/24 14:31 Amorphous Sediment Not Reportable 01/04/24 14:31 Urine Opiates Screen Negative ng/mL (Negative) 01/04/24 14:31 Ur Barbiturates Screen Negative ng/mL (Negative) 01/04/24 14:31 Ur Phencyclidine Scrn Negative ng/mL (Negative) 01/04/24 14:31 Ur Amphetamines Screen Negative ng/mL (Negative) 01/04/24 14:31 U Benzodiazepines Scrn Negative ng/mL (Negative) 01/04/24 14:31 Urine Cocaine Screen Negative ng/mL (Negative) 01/04/24 14:31 U Marijuana (THC) Screen Negative ng/mL (Negative) 01/04/24 14:31 All radiology interpretation(s) finalized by discharge Discharge Plan Discharge Patient Disposition: Home Clinical Impression: Anxiety, Panic attack Condition: Stable Prescriptions: New Xanax 0.5 mg tablet 0.5 mg PO BID PRN (Reason: anxiety) Qty: 6 0RF No Action polyethylene glycol 3350 [Miralax] 17 gram/dose powder 17 g PO DAILY multivitamin Tablet 1 tab PO QAM Breztri Aerosphere 160-9-4.8 mcg/actuation HFA aerosol inhaler 2 inh inhalation BID Qty: 10.7 11RF albuterol sulfate [Ventolin HFA] 90 mcg/actuation HFA aerosol inhaler 2 puff inhalation Q4H PRN (Reason: shortness of breath or wheezing) Qty: 8.5 1RF aspirin 81 mg tablet,delayed release (DR/EC) 81 mg PO QAM trazodone 50 mg tablet 100 mg PO .HS PRN (Reason: insomnia) Qty: 60 2RF alprazolam 0.5 mg tablet extended release 24 hr 0.5 mg PO .HS Qty: 30 1RF Rx Instructions: Take every night for 1 month then every other night after that until tapered off. buprenorphine-naloxone 8-2 mg film 0.5 film sublingual TID Qty: 45 2RF paroxetine HCl 40 mg tablet 40 mg PO BID Qty: 60 2RF atorvastatin 40 mg tablet See Rx Instructions .ROUTE .COMPLEX Qty: 90 3RF Dose Instruction: Take 1 tablet by mouth once daily Rx Instructions: Take 1 tablet by mouth once daily clopidogrel 75 mg tablet 75 mg PO QPM tamsulosin 0.4 mg capsule 0.8 mg PO QAM Discharge Orders: Discharge ED (Routine); Ordered 01/04/24 Ordered By: Garo Em Referrals: Shirley Duke, ASSOCIATE RELATIONS SPECIALIST [Primary Care Provider] - 1 week Patient Instructions: Panic Disorder (ED), Anxiety (ED) Activity Restrictions/Additional Instructions: Your evaluation ER did not show any acute cause of your nausea weakness anxiety or panic attacks or a lump in your throat. You have been provided a small prescription of Xanax to get you by until you can follow-up with Dr. Montemayor on Saturday. Thank you for choosing [facility] for your healthcare needs today. Please realize that you were seen in the emergency department and that we are providing you with an emergency medical screening exam and this may not be a complete and all exclusive of all testing and/or medical workup we may need to determine your element or severity of your illness. It is very important that you follow-up as instructed with your primary care provider or specialist for the additional evaluation and to discuss your medical treatment plan. You may return to the emergency department should you have concerns or if your condition changes or worsens in any way. Coding Level of Care Code ED Lab Courier for Tello Garvin
[2024-01-04 14:14] VITALS: PULSE 54; O2SAT 97
[2024-01-04 14:44] VITALS: PULSE 56; O2SAT 96
[2024-01-04 14:45] LABS: Basophils % 0.2 %; Eosinophils # 0.1 10^3/uL (0.0-0.8); Eosinophils % 1.1 %; Hematocrit 39.9 % (37-53); Lymphocytes # 1.1 10^3/uL (0.8-4.8); Lymphocytes % 13.8 %; Mean Corpuscular HGB Conc 32.8 g/dL (30-55); Mean Corpuscular Hemoglobin 33.1 pg (27-33); Mean Corpuscular Volume 100.8 fl (82-101); Mean Platelet Volume 11.1 fL (7.4-10.4); Monocytes # 0.5 10^3/uL (0.2-0.9); Monocytes % 6.2 %; Neutrophils # 6.36 10^3/uL (1.8-7.7); Neutrophils % 78.2 %; Nucleated Red Blood Cells % 0 %; Platelet Count 174 10^3/cmm (157-399); Red Blood Count 3.96 10^6/uL (3.85-5.65); Red Cell Distribution Width 12.6 % (12.1-15.1); White Blood Count 8.13 10^3/uL (3.29-11.43)
[2024-01-04 14:47] LABS: Alanine Aminotransferase 16 U/L (0-41); Alkaline Phosphatase 187 U/L (40-130); Anion Gap 12.2 (5-19); Aspartate Amino Transferase 19 U/L (0-40); Blood Urea Nitrogen 15 mg/dL (8-23); Calcium 9.1 mg/dL (8.5-10.5); Carbon Dioxide 30 mmol/L (22-29); Chloride 101 mmol/L (98-107); Globulin 2.9 g/dL (1.3-4.6); Glucose 106 mg/dL (65-115); Osmolality Calculated 289 mOsm/kg (285-295); Potassium 4.2 mmol/L (3.5-5.1); Sodium 139 mmol/L (136-145); Total Bilirubin 0.3 mg/dL (0.15-1.2); Total Protein 6.9 g/dL (6.6-8.7)
[2024-01-04 14:48] LABS: Add Urine Microscopic? NO
[2024-01-04 14:49] LABS: Creatinine Clr Calc Pharmacy 76.0763
[2024-01-04 14:53] LABS: Urine Appearance Clear (CLEAR); Urine Color Yellow (Yellow)
[2024-01-04 14:54] LABS: Bilirubin Urine Neg (Negative); Blood Urine Neg (Negative); Glucose Urine UA Norm (Normal); Ketones Urine Negative (Negative); Leukocyte Esterase Urine Negative (Negative); Nitrate Urine Negative (Negative); Protein Urine Neg (Negative); Urobilinogen Urine Norm (Negative); pH Urine 7 (5-7)
[2024-01-04 14:55] LABS: Charge for UA Resulting for Rev
[2024-01-04 15:01] LABS: Amphetamines Screen Urine Negative (Negative); Barbiturates Screen Urine Negative (Negative); Benzodiazepines Screen Urine Negative (Negative); Cocaine Screen Urine Negative (Negative); Opiate Screen Urine Negative (Negative); PCP Screen Urine Negative (Negative); THC Screen Urine Negative (Negative)
[2024-01-04 15:14] VITALS: PULSE 86; O2SAT 93
[2024-01-04 16:15] VITALS: BP 118/68; PULSE 63; O2SAT 99
== END 2024-01-04 15:52 | disposition home or self-care (01) ==
PROVIDERS: Emergency Provider Emergency Medicine; PCP Nurse Practitioner Family
DX: F41.9 Anxiety disorder, unspecified (principal); F41.0 Panic disorder [episodic paroxysmal anxiety]; Z79.02 Long term (current) use of antithrombotics/antiplatelets; Z79.82 Long term (current) use of aspirin; F17.210 Nicotine dependence, cigarettes, uncomplicated; E78.5 Hyperlipidemia, unspecified
CPT/HCPCS: 36415; 71045; 80053; 80306; 81003; 85025; 99284

== ENCOUNTER 2024-01-10 08:12 | Outpatient (CLI) | payer MEDICARE, OTHER, SELFPAY ==
--- NOTE | 2024-01-10 08:30 | FL_ITS ---
WS: [id number] Barium swallow and esophagram, 01/10/2024 Clinical Data: R13.10 - Dysphagia, unspecified Comparison: None. Fluoroscopy time: 2min [id number] # of spot films: 9 Findings: The patient swallowed the thick and thin barium, and it flowed through the hypopharynx without hesita tion. No stricture, mass, polyp or erosion was seen. No aspiration or penetration was seen. 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 The barium entered the esophagus and there or tertiary contractions. No mass, erosion, polyp or ulcer was noted. There is a small sliding hiatal hernia with minimal gastroesophageal reflux. The barium p assed normally into the stomach. FL/FL barium swallow gastro [id number] Impression: 1. Negative for aspiration or penetration but the AP view of the hypopharynx is obscured by the patient's kyphosis. 2. Frequent tertiary contractions of the middle and distal esophagus. 3. Small sliding hiatal hernia with minimal reflux.
== END 2024-01-10 08:13 | disposition home or self-care (01) ==
PROVIDERS: PCP Nurse Practitioner Family; Visit Provider Family Medicine
DX: R13.10 Dysphagia, unspecified (principal); R07.0 Pain in throat; R93.3 Abnormal findings on diagnostic imaging of other parts of digestive tract
CPT/HCPCS: 74220

== ENCOUNTER 2024-01-17 17:54 | Emergency (ER) | payer MEDICARE, OTHER, SELFPAY ==
[2024-01-17 18:05] VITALS: BP 151/78; PULSE 65; RESP 20; TEMP 36.4; O2SAT 96; BMI 24.1
--- NOTE | 2024-01-17 18:28 | ECG_ITS ---
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 Measurements Intervals [place] Rate: 55 P: 26 MO: 177 QRS: -19 QRSD: 82 T: 50 QT: 447 QTc: 429 Interpretive Statements SINUS BRADYCARDIA MINIMAL VOLTAGE CRITERIA FOR LVH, CONSIDER NORMAL VARIANT [MEETS CRITERIA IN ONE OF: R(aVL), S(V1), R(V5), R(V5/V6)+S(V1)] Compared to ECG 02/22/2023 19:43:18 Sinus rhythm no longer present Electronically Signed On 01-17-2024 20:18:21 CDT by Faviola Nick M.D. [email or web address]
--- NOTE | 2024-01-17 18:28 | XRR_ITS ---
PROCEDURE INFORMATION: Exam: XR Chest Exam date and time: 01/17/2024 6:40 PM Age: 83 years old Clinical indication: Shortness of breath and other: Weakness TECHNIQUE: Imaging protocol: Radiologic exam of the chest. Views: 1 view. COMPARISON: CR (CHEST, ) 01/04/2024 2:00 PM FINDINGS: Lungs: The lungs are clear. Pleural spaces: Unremarkable. No pleural effusion. No pneumothorax. Heart/Mediastinum: Unremarkable. No cardiomegaly. Bones/joints: Chronic metallic anchors in both humeral heads. XR/XR chest 1V portable [id number] IMPRESSION: No significant findings
--- NOTE | 2024-01-17 18:36 | W.ED.WEAKNES ---
HPI - Weakness General: Chief complaint: Weakness Stated complaint: weakness, anxiety Time Seen by Provider: 01/17/24 18:28 History of Present Illness: Patient resents to the ER with complaints of anxiety weakness fatigue and having difficulty swallowing. Patient does say he has some dementia. Patient just saw his PCP within the last week or 2 and had a swallow study that he passed. Patient said his PCP put him on Prozac few days ago and is not working yet. Patient wants Xanax. Review of Systems General: Reports: 10 or more systems reviewed and unremarkable except in HPI and below PFSH ED PFSH: Medical History Psychiatric care Depression Right inguinal hernia Hyperlipidemia Anxiety BPH (benign prostatic hyperplasia) Back pain with history of spinal surgery Surgical History Status post right inguinal hernia repair History of back surgery Status post left knee replacement H/O shoulder surgery bilateral rotator cuff repairs H/O circumcision H/O colonoscopy 3 yrs ago Family History Denies family history of Diabetes Anesthesia complication Bleeding disorder Cancer Social History Smoking and tobacco/nicotine status: current every day tobacco/nicotine user cigarettes Packs smoked per day: 1 [ Other cigarette details: STARTED SMOKING IN 1959] Quit status (tobacco/nicotine): not considering quitting Second hand smoke exposure: No Alcohol intake: current Alcohol intake frequency: few times a week Substance/Drug Use: never Household members: family Marital status: Single Current occupational status: retired Physical Exam Const: COMMON NORMALS: no acute distress, average body habitus, patient oriented x3, no limitations, healthy appearing, alert and well nourished HENMT: COMMON NORMALS: normocephalic, atraumatic, hearing grossly normal bilaterally, external ears normal and moist oral mucous membranes HEAD & SCALP: normocephalic and atraumatic EXTERNAL EAR: Yes external ears normal Neck/C-Spine: COMMON NORMALS: no JVD Chest: COMMONS NORMALS: normal inspection of the chest and normal palpation of entire chest wall Resp: COMMON NORMALS: normal respiratory effort, No retractions, No use of accessory muscles and clear to auscultation bilaterally AUSCULTATION: clear to auscultation bilaterally Cardio: COMMON NORMALS: no JVD, regular rate, regular rhythm, S1 normal heart sound present, S2 normal heart sound present, No gallops present (Cardio), No clicks present (Cardio), No murmurs present (Cardio) and No rub (Cardio) RATE: regular rate RHYTHM: regular rhythm HEART SOUNDS: S1 normal heart sound present and S2 normal heart sound present GI: COMMON NORMALS: Normal to inspection, nondistended, normoactive bowel sounds present, Soft to palpation, non-tender, No hepatosplenomegaly present and no masses PALPATION: Yes Soft to palpation and Yes No hepatosplenomegaly present Neuro: COMMON NORMALS: patient oriented x3 SENSORIUM/ORIENTATION: Yes alert Course Vital Signs: Vital signs: Vital Signs Temperature 97.6 F 01/17/24 18:05 Pulse Rate 65 01/17/24 18:05 Respiratory Rate 20 H 01/17/24 18:05 Blood Pressure 151/78 01/17/24 18:05 Pulse Oximetry 96 01/17/24 18:05 Oxygen Delivery Me thod Room Air 01/17/24 18:05 MDM - Weakness Medical Decision Making Patient was given 20 mg of Bentyl p.o. and I thought that it may help with spasms of the esophagus and help him swallow. He says did not do anything. Patient passed his swallow study performed by his PCP. We will discharge patient back to his PCP for further evaluation and treatment. Lab Data 01/17/24 19:01 01/17/24 19:01 Radiology Impressions Chest X-Ray 01/17/24 18:28 IMPRESSION: No significant findings Laboratory Results WBC 10.06 10^3/uL (3.29-11.43) 01/17/24 19:01 RBC 4.40 10^6/uL (3.85-5.65) 01/17/24 19:01 Hgb 14.40 g/dL (11.27-16.99) 01/17/24 19:01 Hct 43.5 % (37-53) 01/17/24 19:01 MCV 98.9 fl (82-101) 01/17/24 19:01 MCH 32.7 pg (27-33) 01/17/24 19: MCHC 33.1 g/dL (30-55) 01/17/24 19:01 RDW 12.5 % (12.1-15.1) 01/17/24 19:01 Plt Count 240 10^3/cmm (157-399) 01/17/24 19:01 MPV 10.6 fL (7.4-10.4) H 01/17/24 19:01 Neut % (Auto) 70.9 % 01/17/24 19:01 Lymph % (Auto) 19.9 % 01/17/24 19:01 [place] % (Auto) 7.2 % 01/17/24 19:01 Eos % (Auto) 1.2 % 01/17/24 19:01 Baso % (Auto) 0.4 % 01/17/24 19:01 Neut # (Auto) 7.14 10^3/uL (1.8-7.7) 01/17/24 19:01 Lymph # (Auto) 2.0 10^3/uL (0.8-4.8) 01/17/24 19:01 [place] # (Auto) 0.7 10^3/uL (0.2-0.9) 01/17/24 19:01 Eos # (Auto) 0.1 10^3/uL (0.0-0.8) 01/17/24 19:01 Baso # (Auto) 0.0 10^3/uL (0.0-0.1) 01/17/24 19:01 Nucleated RBC % (auto) 0 % 01/17/24 19:01 Nucleated RBCs # 0.0 /100WBC 01/17/24 19:01 Urine Color Yellow (Yellow) 01/17/24 19:09 Urine Appearance Clear (CLEAR) 01/17/24 19:09 Urine pH 6.0 (5-7) 01/17/24 19:09 Ur Specific [place] 1.023 (1.005-1.030) 01/17/24 19:09 Urine Protein Trace (Negative) A 01/17/24 19:09 Urine Glucose (UA) Negative (Normal) 01/17/24 19:09 Urine Ketones 1+ (Negative) H 01/17/24 19:09 Urine Blood 1+ (Negative) A 01/17/24 19:09 Urine Nitrate Negative (Negative) 01/17/24 19:09 Urine Bilirubin Negative (Negative) 01/17/24 19:09 Urine Urobilinogen 1.0 mg/dL (Negative) 01/17/24 19:09 Ur Leukocyte Esterase Negative (Negative) 01/17/24 19:09 Urine RBC 11-20 /hpf (0-2) H 01/17/24 19:09 Urine WBC 0-5 /hpf (0-5) 01/17/24 19:09 Ur Squamous Epith Cells 0-5 /hpf (0-5) 01/17/24 19:09 Amorphous Sediment Not Reportable 01/17/24 19:09 Urine Bacteria None seen /hpf (NONE) 01/17/24 19:09 Hyaline Casts 1.21 /lpf 01/17/24 19:09 Urine Mucus 1+ /hpf 01/17/24 19:09 Urine Opiates Screen Negative ng/mL (Negative) 01/17/24 19:09 Ur Barbiturates Screen Negative ng/mL (Negative) 01/17/24 19:09 Ur Phencyclidine Scrn Negative ng/mL (Negative) 01/17/24 19:09 Ur Amphetamines Screen Negative ng/mL (Negative) 01/17/24 19:09 U Benzodiazepines Scrn Positive ng/mL (Negative) H 01/17/24 19:09 Urine Cocaine Screen Negative ng/mL (Negative) 01/17/24 19:09 U Marijuana (THC) Screen Negative ng/mL (Negative) 01/17/24 19:09 XR interpretation done by ED provider, pending radiology final review Discharge Plan Discharge Patient Disposition: Home Clinical Impression: Dysphagia, Anxiety Condition: Stable Prescriptions: No Action polyethylene glycol 3350 [Miralax] 17 gram/dose powder 17 g PO DAILY multivitamin Tablet 1 tab PO QAM Breztri Aerosphere 160-9-4.8 mcg/actuation HFA aerosol inhaler 2 inh inhalation BID Qty: 10.7 11RF albuterol sulfate [Ventolin HFA] 90 mcg/actuation HFA aerosol inhaler 2 puff inhalation Q4H PRN (Reason: shortness of breath or wheezing) Qty: 8.5 1RF pregabalin 50 mg capsule 50 mg PO TID Qty: 90 2RF Rx Instructions: Start one tab at bedtime x 1 wk, then BID x 1 wk, then may take TID. aspirin 81 mg tablet,delayed release (DR/EC) 81 mg PO QAM trazodone 50 mg tablet 100 mg PO .HS PRN (Reason: insomnia) Qty: 60 2RF buprenorphine-naloxone 8-2 mg film 0.5 film sublingual TID Qty: 45 2RF fluoxetine 40 mg capsule 40 mg PO DAILY Qty: 30 2RF alprazolam 1 mg tablet extended release 24 hr 1 mg PO .HS Qty: 30 2RF atorvastatin 40 mg tablet See Rx Instructions .ROUTE .COMPLEX Qty: 90 3RF Dose Instruction: Take 1 tablet by mouth once daily Rx Instructions: Take 1 tablet by mouth once daily clopidogrel 75 mg tablet 75 mg PO QPM tamsulosin 0.4 mg capsule 0.8 mg PO QAM Discharge Orders: Discharge ED (Routine); Ordered 01/17/24 Ordered By: Garo Em Referrals: Shirley Duke, WEB PRESS OPERATOR APPRENTICE [Primary Care Provider] - 1 week Patient Instructions: Dysphagia, Anxiety (ED) Activity Restrictions/Additional Instructions: Your evaluation ER did not show any causes of your dysphagia or anxiety. You are given Bentyl in ER and attempt to help with your swallowing difficulties. Please follow back up with your primary care doctor for further evaluation and treatment. Coding Level of Care Code ED Nickel Operator for Chg Fwd Related Data Home Medications Medication Instructions Recorded Confirmed polyethylene glycol 3350 17 17 g PO DAILY 10/31/20 01/17/24 gram/dose oral powder (Miralax) aspirin 81 mg tablet,delayed 81 mg PO QAM 12/04/21 01/17/24 release multivitamin 1 tab PO QAM 12/27/21 01/17/24 clopidogrel 75 mg tablet 75 mg PO QPM 08/19/23 01/17/24 tamsulosin 0.4 mg capsule 0.8 mg PO QAM 08/19/23 01/17/24 Previous Rx's Medication Instructions Recorded albuterol sulfate 90 mcg/actuation 2 puff inhalation Q4H PRN 08/23/23 aerosol inhaler (Ventolin HFA) shortness of breath or wheezing #8.5 grams budesonide 160 mcg-glycopyr 9 2 inh inhalation BID #10.7 grams 08/23/23 mcg-formot 4.8 mcg/actuation HFA inhaler (Breztri Aerosphere) atorvastatin 40 mg tablet See Rx Instructions .Route 08/26/23 .COMPLEX #90 tabs buprenorphine 8 mg-naloxone 2 mg 0.5 film sublingual TID #45 ea 12/04/23 sublingual film trazodone 50 mg tablet 100 mg (2 x 50 mg) PO .HS PRN 12/04/23 insomnia #60 tabs pregabalin 50 mg capsule 50 mg PO TID #90 caps 01/07/24 alprazolam 1 mg tablet,extended 1 mg PO .HS #30 tabs 01/15/24 release 24 hr fluoxetine 40 mg capsule 40 mg PO DAILY #30 caps 01/15/24 Allergies Allergy/AdvReac Type Severity Reaction Status Date / Time No Known Allergies Allergy Verified 01/17/24 18:20
[2024-01-17 19:18] LABS: Basophils % 0.4 %; Eosinophils # 0.1 10^3/uL (0.0-0.8); Eosinophils % 1.2 %; Hematocrit 43.5 % (37-53); Lymphocytes % 19.9 %; Mean Corpuscular HGB Conc 33.1 g/dL (30-55); Mean Corpuscular Hemoglobin 32.7 pg (27-33); Mean Corpuscular Volume 98.9 fl (82-101); Mean Platelet Volume 10.6 fL (7.4-10.4); Monocytes # 0.7 10^3/uL (0.2-0.9); Monocytes % 7.2 %; Neutrophils # 7.14 10^3/uL (1.8-7.7); Neutrophils % 70.9 %; Nucleated Red Blood Cells % 0 %; Platelet Count 240 10^3/cmm (157-399); Red Cell Distribution Width 12.5 % (12.1-15.1); White Blood Count 10.06 10^3/uL (3.29-11.43)
[2024-01-17 19:19] LABS: Bilirubin Urine Negative (Negative); Blood Urine 1+ (Negative); Glucose Urine UA Negative (Normal); Ketones Urine 1+ (Negative); Leukocyte Esterase Urine Negative (Negative); Nitrate Urine Negative (Negative); Protein Urine Trace (Negative); Specific Gravity, Urine 1.023 (1.005-1.030); Urine Appearance Clear (CLEAR); Urine Color Yellow (Yellow)
[2024-01-17 19:24] LABS: Add Urine Microscopic? YES; Bacteria Urine None Seen /hpf; Hyaline Casts Urine 1.21 /lpf; Squamous Epithelial Cell Urine 0-5 /hpf (0-5); Universal Test for UA Present (0); WBC Urine 0-5 /hpf (0-5)
[2024-01-17 19:27] LABS: Amphetamines Screen Urine Negative (Negative); Barbiturates Screen Urine Negative (Negative); Benzodiazepines Screen Urine Positive (Negative); Cocaine Screen Urine Negative (Negative); Opiate Screen Urine Negative (Negative); PCP Screen Urine Negative (Negative); THC Screen Urine Negative (Negative)
[2024-01-17 19:31] LABS: Mucus Urine 1+ /hpf
[2024-01-17] MEDS: dicyclomine 20 mg Tablet PO (19:35)
[2024-01-17 19:49] LABS: Alanine Aminotransferase 19 U/L (0-41); Albumin Level 4.3 g/dL (3.5-5.2); Alkaline Phosphatase 156 U/L (40-130); Anion Gap 14.9 (5-19); Aspartate Amino Transferase 22 U/L (0-40); Blood Urea Nitrogen 15 mg/dL (8-23); Calcium 9.3 mg/dL (8.5-10.5); Carbon Dioxide 29 mmol/L (22-29); Chloride 100 mmol/L (98-107); Creatinine Clr Calc Pharmacy 77.1001; Globulin 3.2 g/dL (1.3-4.6); Glucose 83 mg/dL (65-115); Osmolality Calculated 290 mOsm/kg (285-295); Potassium 3.9 mmol/L (3.5-5.1); Sodium 140 mmol/L (136-145); Thyroid Stimulating Hormone 5.08 uIU/mL (0.27-4.20); Total Bilirubin 0.5 mg/dL (0.15-1.2); Total Protein 7.5 g/dL (6.6-8.7)
[2024-01-17 19:55] LABS: Acetaminophen < 5.0 ug/mL (10-30); Alcohol Level < 10 mg/dL (0-10); Salicylate < 0.3 mg/dL (3-10)
[2024-01-17 20:18] VITALS: BP 139/86; PULSE 72; O2SAT 95
== END 2024-01-17 19:52 | disposition home or self-care (01) ==
PROVIDERS: Emergency Provider Emergency Medicine; PCP Nurse Practitioner Family
DX: R13.10 Dysphagia, unspecified (principal); F41.9 Anxiety disorder, unspecified; Z79.02 Long term (current) use of antithrombotics/antiplatelets; Z79.82 Long term (current) use of aspirin; E78.5 Hyperlipidemia, unspecified; F17.210 Nicotine dependence, cigarettes, uncomplicated
CPT/HCPCS: 71045; 80053; 80306; 80307; 81001; 83735; 84443; 85025; 93005; 99285

== ENCOUNTER 2024-01-18 18:36 | Emergency (ER) | payer MEDICARE, OTHER, SELFPAY ==
[2024-01-18 18:40] VITALS: BP 148/77; PULSE 71; RESP 16; TEMP 36.7; O2SAT 97; BMI 24.1
--- NOTE | 2024-01-18 19:13 | XRR_ITS ---
PROCEDURE INFORMATION: Exam: XR Chest Exam date and time: 01/18/2024 7:28 PM Age: 83 years old Clinical indication: Other: AMS, si TECHNIQUE: Imaging protocol: Radiologic exam of the chest. Views: 1 view. COMPARISON: CR (CHEST, ) 01/17/2024 6:40 PM FINDINGS: Lungs: Mild emphysematous changes. Left lower lobe atelectasis. Pleural spaces: Unremarkable. No pleural effusion. No pneumothorax. Heart/Mediastinum: Cardiomegaly. Bones/joints: Unremarkable. XR/XR chest 1V portable [id number] IMPRESSION: 1. Cardiomegaly. 2. Mild emphysematous changes. 3. Left lower lobe atelectasis.
[2024-01-18 19:39] LABS: Basophils # 0.1 10^3/uL (0.0-0.1); Basophils % 0.4 %; Eosinophils # 0.1 10^3/uL (0.0-0.8); Eosinophils % 0.7 %; Lymphocytes # 1.9 10^3/uL (0.8-4.8); Mean Corpuscular HGB Conc 32.5 g/dL (30-55); Mean Corpuscular Hemoglobin 32.1 pg (27-33); Mean Corpuscular Volume 98.8 fl (82-101); Mean Platelet Volume 10.6 fL (7.4-10.4); Monocytes % 8.1 %; Neutrophils # 8.67 10^3/uL (1.8-7.7); Neutrophils % 74.3 %; Nucleated Red Blood Cells % 0 %; Platelet Count 207 10^3/cmm (157-399); Red Blood Count 4.05 10^6/uL (3.85-5.65); Red Cell Distribution Width 12.5 % (12.1-15.1); White Blood Count 11.68 10^3/uL (3.29-11.43)
--- NOTE | 2024-01-18 20:07 | ECG_ITS ---
[facility] Test Date: 2024-01-18 Pat Name: Jonnathan Tapia Department: Room: Gender: Male Health Plan Specialist: : 1940 Requested By: Collin Lomeli Order Number: [id number] Nancy MD: Magnus Connors M.D. Measurements Intervals [place] Rate: 63 P: 13 FL: 144 QRS: -24 QRSD: 84 T: 41 QT: 424 QTc: 435 Interpretive Statements SINUS RHYTHM BORDERLINE LEFT AXIS DEVIATION [QRS AXIS < -20] Compared to ECG 01/17/2024 18:11:43 Sinus bradycardia no longer present Electronically Signed On 01-20-2024 18:50:13 CDT by Magnus Connors M.D. [id number]
[2024-01-18 20:13] LABS: Alanine Aminotransferase 18 U/L (0-41); Albumin Level 3.9 g/dL (3.5-5.2); Alkaline Phosphatase 135 U/L (40-130); Anion Gap 14.7 (5-19); Aspartate Amino Transferase 20 U/L (0-40); Blood Urea Nitrogen 13 mg/dL (8-23); Calcium 9.1 mg/dL (8.5-10.5); Carbon Dioxide 26 mmol/L (22-29); Chloride 98 mmol/L (98-107); Creatinine Clr Calc Pharmacy 77.1001; Globulin 2.7 g/dL (1.3-4.6); Glucose 104 mg/dL (65-115); Osmolality Calculated 280 mOsm/kg (285-295); Potassium 3.7 mmol/L (3.5-5.1); Sodium 135 mmol/L (136-145); Thyroid Stimulating Hormone 2.76 uIU/mL (0.27-4.20); Total Bilirubin 0.5 mg/dL (0.15-1.2); Total Protein 6.6 g/dL (6.6-8.7)
[2024-01-18 20:15] LABS: Acetaminophen < 5.0 ug/mL (10-30); Alcohol Level < 10 mg/dL (0-10); Salicylate < 0.3 mg/dL (3-10)
[2024-01-18 20:53] LABS: Bilirubin Urine Negative (Negative); Blood Urine 2+ (Negative); Glucose Urine UA Negative (Normal); Ketones Urine 1+ (Negative); Leukocyte Esterase Urine Trace (Negative); Nitrate Urine Negative (Negative); Protein Urine Trace (Negative); Specific Gravity, Urine 1.026 (1.005-1.030); Urine Appearance Clear (CLEAR); Urine Color Yellow (Yellow); pH Urine 5.5 (5-7)
[2024-01-18 20:58] LABS: Add Urine Microscopic? YES; Bacteria Urine None Seen /hpf; Hyaline Casts Urine 15.28 /lpf; RBC Urine 21-50 /hpf (0-2); Squamous Epithelial Cell Urine 0-5 /hpf (0-5); Universal Test for UA Present (0); WBC Urine 0-5 /hpf (0-5)
[2024-01-18 21:00] LABS: Amphetamines Screen Urine Negative (Negative); Barbiturates Screen Urine Negative (Negative); Benzodiazepines Screen Urine Positive (Negative); Cocaine Screen Urine Negative (Negative); Opiate Screen Urine Negative (Negative); PCP Screen Urine Negative (Negative); THC Screen Urine Negative (Negative)
[2024-01-18 21:08] LABS: Add Urine Culture? Yes; Mucus Urine 4+ /hpf
[2024-01-18 21:28] LABS: Covid PCR NEGATIVE (Negative); Influenza A NEGATIVE (Negative); Influenza B NEGATIVE (Negative); Respiratory Syncytial Virus Ce NEGATIVE (Negative)
[2024-01-18 22:00] VITALS: BP 146/81; PULSE 65; O2SAT 94
[2024-01-19] MEDS: ketorolac 30 mg/mL INJ IM (00:08)
[2024-01-19] MEDS: OLANZapine 10 mg ODT 15 MG PO (00:08)
--- NOTE | 2024-01-19 01:32 | W.ED.PSYCHS ---
HPI - Psych General: Chief Complaint: Psychiatric Symptoms Stated Complaint: SI Time Seen by Provider: 01/18/24 19:04 History of Present Illness: 83-year-old male patient with a history of anxiety and depression. His son states that he was quite depressed. He has been talking about dying lately. He told my nursing staff to give him a bunch of morphine and turn off the light and shut the door . He says that he has panic attacks at home. He has not been able to eat because of his anxiety. He denies recent fever or illness otherwise. He does have a history of stroke several years ago. Related Data Home Medications Medication Instructions Recorded Confirmed polyethylene glycol 3350 17 17 g PO DAILY 10/31/20 01/17/24 gram/dose oral powder (Miralax) aspirin 81 mg tablet,delayed 81 mg PO QAM 12/04/21 01/17/24 release multivitamin 1 tab PO QAM 12/27/21 01/17/24 clopidogrel 75 mg tablet 75 mg PO QPM 08/19/23 01/17/24 tamsulosin 0.4 mg capsule 0.8 mg PO QAM 08/19/23 01/17/24 Previous Rx's Medication Instructions Recorded albuterol sulfate 90 mcg/actuation 2 puff inhalation Q4H PRN 08/23/23 aerosol inhaler (Ventolin HFA) shortness of breath or wheezing #8.5 grams budesonide 160 mcg-glycopyr 9 2 inh inhalation BID #10.7 grams 08/23/23 mcg-formot 4.8 mcg/actuation HFA inhaler (Breztri Aerosphere) atorvastatin 40 mg tablet See Rx Instructions .Route 08/26/23 .COMPLEX #90 tabs buprenorphine 8 mg-naloxone 2 mg 0.5 film sublingual TID #45 ea 12/04/23 sublingual film trazodone 50 mg tablet 100 mg (2 x 50 mg) PO .HS PRN 12/04/23 insomnia #60 tabs pregabalin 50 mg capsule 50 mg PO TID #90 caps 01/07/24 alprazolam 1 mg tablet,extended 1 mg PO .HS #30 tabs 01/15/24 release 24 hr fluoxetine 40 mg capsule 40 mg PO DAILY #30 caps 01/15/24 Allergies Allergy/AdvReac Type Severity Reaction Status Date / Time No Known Allergies Allergy Verified 01/17/24 18:20 [facility] PFS: Medical History Psychiatric care Depression Right inguinal hernia Hyperlipidemia Anxiety BPH (benign prostatic hyperplasia) Back pain with history of spinal surgery Surgical History Status post right inguinal hernia repair History of back surgery Status post left knee replacement H/O shoulder surgery bilateral rotator cuff repairs H/O circumcision H/O colonoscopy 3 yrs ago Family History Denies family history of Diabetes Anesthesia complication Bleeding disorder Cancer Social History Smoking and tobacco/nicotine status: current every day tobacco/nicotine user cigarettes Packs smoked per day: 1 [ Other cigarette details: STARTED SMOKING IN 1959] Quit status (tobacco/nicotine): not considering quitting Second hand smoke exposure: No Alcohol intake: current Alcohol intake frequency: few times a week Substance/Drug Use: never Household members: family Marital status: Single Current occupational status: retired Physical Exam Const: GENERAL APPEARANCE: cooperative and frail appearing (Mildly); not ill appearing HENMT: COMMON NORMALS: normocephalic, atraumatic and Normal external nose present HEAD & SCALP: normocephalic and atraumatic FACE & SINUS: normal facial exam and face symmetric NOSE: Normal external nose present Eye: COMMON NORMALS: Equal, round and reactive pupils present and EOMs intact bilaterally PUPIL: Yes Equal, round and reactive pupils present Neck/C-Spine: GENERAL: Yes trachea midline Chest: CHEST: Yes Symmetrical chest wall rise Resp: COMMON NORMALS: normal respiratory effort, No retractions, No use of accessory muscles and clear to auscultation bilaterally AUSCULTATION: clear to auscultation bilaterally Cardio: COMMON NORMALS: regular rate and regular rhythm RATE: regular rate RHYTHM: regular rhythm GI: COMMON NORMALS: Normal to inspection, nondistended, normoactive bowel sounds present Extremity: COMMON NORMALS: no pedal edema Neuro: KIM COMA SCALE: document GCS findings Kim coma scale eye opening: Spontaneous Godwin coma scale verbal response: Orientated Kim coma scale motor response: Obey commands Godwin coma scale total score: 15 SENSORY EXAM: Yes extremities (intact) Psych: COMMON NORMALS: speech normal SPEECH: Yes normal speech Skin: COMMON NORMALS: no rashes or lesions noted GENERAL SKIN EXAM: no rashes or lesions noted Course Vital Signs: Vital signs: Vital Signs Temperature 98.1 F 01/18/24 18:40 Pulse Rate 50 L 01/19/24 10:26 Respiratory Rate 16 01/18/24 18:40 Blood Pressure 157/89 01/19/24 10:26 Pulse Oximetry 98 01/19/24 10:26 Oxygen Delivery Me thod Room Air 01/19/24 03:25 MDM - Psych Medical Decision Making This patient has been calm and cooperative. When asked if he would like to be admitted to the hospital for help regarding his anxiety, he states that he would. His son wishes him to be admitted as well for help. Medically, he appears quite stable. Urine drug screen is positive for benzodiazepines for which she is prescribed. Does have some mild hematuria without evidence of infection. We do not have geriatric psychiatry at our facility. We will attempt to transfer to an appropriate facility. Lab Data 01/18/24 19:34 01/18/24 19:34 Radiology Impressions Chest X-Ray 01/18/24 19:13 IMPRESSION: 1. Cardiomegaly. 2. Mild emphysematous changes. 3. Left lower lobe atelectasis. Laboratory Results WBC 11.68 10^3/uL (3.29-11.43) H 01/18/24 19:34 RBC 4.05 10^6/uL (3.85-5.65) 01/18/24 19:34 Hgb 13.00 g/dL (11.27-16.99) 01/18/24 19:34 Hct 40.0 % (37-53) 01/18/24 19:34 MCV 98.8 fl (82-101) 01/18/24 19:34 MCH 32.1 pg (27-33) 01/18/24 19:34 MCHC 32.5 g/dL (30-55) 01/18/24 19:34 RDW 12.5 % (12.1-15.1) 01/18/24 19:34 Plt Count 207 10^3/cmm (157-399) 01/18/24 19:34 MPV 10.6 fL (7.4-10.4) H 01/18/24 19:34 Neut % (Auto) 74.3 % 01/18/24 19:34 Lymph % (Auto) 16.0 % 01/18/24 19:34 [place] % (Auto) 8.1 % 01/18/24 19:34 Eos % (Auto) 0.7 % 01/18/24 19:34 Baso % (Auto) 0.4 % 01/18/24 19:34 Neut # (Auto) 8.67 10^3/uL (1.8-7.7) H 01/18/24 19:34 Lymph # (Auto) 1.9 10^3/uL (0.8-4.8) 01/18/24 19:34 [place] # (Auto) 1.0 10^3/uL (0.2-0.9) H 01/18/24 19:34 Eos # (Auto) 0.1 10^3/uL (0.0-0.8) 01/18/24 19:34 Baso # (Auto) 0.1 10^3/uL (0.0-0.1) 01/18/24 19:34 Nucleated RBC % (auto) 0 % 01/18/24 19:34 Nucleated RBCs # 0.0 /100WBC 01/18/24 19:34 Sodium 135 mmol/L (136-145) L 01/18/24 19:34 Potassium 3.7 mmol/L (3.5-5.1) 01/18/24 19:34 Chloride 98 mmol/L (98-107) 01/18/24 19:34 Carbon Dioxide 26 mmol/L (22-29) 01/18/24 19:34 Anion Gap 14.7 (5-19) 01/18/24 19:34 BUN 13 mg/dL (8-23) 01/18/24 19:34 Creatinine 0.7 mg/dL (0.7-1.2) 01/18/24 19:34 GFR Calculation Not Reportable 01/18/24 19:34 Glucose 104 mg/dL (65-115) 01/18/24 19:34 Calculated Osmolality 280 mOsm/kg (285-295) L 01/18/24 19:34 Calcium 9.1 mg/dL (8.5-10.5) 01/18/24 19:34 Total Bilirubin 0.5 mg/dL (0.15-1.2) 01/18/24 19:34 AST 20 U/L (0-40) 01/18/24 19:34 ALT 18 U/L (0-41) 01/18/24 19:34 Alkaline Phosphatase 135 U/L (40-130) H 01/18/24 19:34 Total Protein 6.6 g/dL (6.6-8.7) 01/18/24 19:34 Albumin 3.9 g/dL (3.5-5.2) 01/18/24 19:34 Globulin 2.7 g/dL (1.3-4.6) 01/18/24 19:34 TSH 2.76 uIU/mL (0.27-4.20) 01/18/24 19:34 Urine Color Yellow (Yellow) 01/18/24 20:41 Urine Appearance Clear (CLEAR) 01/18/24 20:41 Urine pH 5.5 (5-7) 01/18/24 20:41 Ur Specific [place] 1.026 (1.005-1.030) 01/18/24 20:41 Urine Protein Trace (Negative) A 01/18/24 20:41 Urine Glucose (UA) Negative (Normal) 01/18/24 20:41 Urine Ketones 1+ (Negative) H 01/18/24 20:41 Urine Blood 2+ (Negative) A 01/18/24 20:41 Urine Nitrate Negative (Negative) 01/18/24 20:41 Urine Bilirubin Negative (Negative) 01/18/24 20:41 Urine Urobilinogen 1.0 mg/dL (Negative) 01/18/24 20:41 Ur Leukocyte Esterase Trace (Negative) A 01/18/24 20:41 Urine RBC 21-50 /hpf (0-2) H 01/18/24 20:41 Urine WBC 0-5 /hpf (0-5) 01/18/24 20:41 Ur Squamous Epith Cells 0-5 /hpf (0-5) 01/18/24 20:41 Amorphous Sediment Not Reportable 01/18/24 20:41 Urine Bacteria None seen /hpf (NONE) 01/18/24 20:41 Hyaline Casts 15.28 /lpf 01/18/24 20:41 Urine Mucus 4+ /hpf 01/18/24 20:41 Salicylates < 0.3 mg/dL (3-10) L 01/18/24 19:34 Urine Opiates Screen Negative ng/mL (Negative) 01/18/24 20:41 Acetaminophen < 5.0 ug/mL (10-30) L 01/18/24 19:34 Ur Barbiturates Screen Negative ng/mL (Negative) 01/18/24 20:41 Ur Phencyclidine Scrn Negative ng/mL (Negative) 01/18/24 20:41 Ur Amphetamines Screen Negative ng/mL (Negative) 01/18/24 20:41 U Benzodiazepines Scrn Positive ng/mL (Negative) H 01/18/24 20:41 Urine Cocaine Screen Negative ng/mL (Negative) 01/18/24 20:41 U Marijuana (THC) Screen Negative ng/mL (Negative) 01/18/24 20:41 Ethyl Alcohol < 10 mg/dL (0-10) 01/18/24 19:34 Coronavirus (PCR) Negative (Negative) 01/18/24 20:41 Influenza A (PCR) Negative (Negative) 01/18/24 20:41 Influenza Type B (PCR) Negative (Negative) 01/18/24 20:41 RSV (PCR) Negative (Negative) 01/18/24 20:41 All radiology interpretation(s) finalized by discharge Discharge Plan Discharge Patient Disposition: Xfer Psychiatric Hosp Clinical Impression: Anxiety, Depression, Suicidal ideation Condition: Stable Referrals: Shirley Duke NP [Primary Care Provider] - Coding Level of Care Code ED Processing Specialist for Tello Garvin
[2024-01-19 03:25] VITALS: BP 169/88; PULSE 55; O2SAT 94
[2024-01-19 10:26] VITALS: BP 157/89; PULSE 50; O2SAT 98
== END 2024-01-19 10:27 ==
PROVIDERS: Emergency Provider Emergency Medicine; PCP Nurse Practitioner Family
DX: R45.851 Suicidal ideations (principal); F32.A Depression, unspecified; F41.9 Anxiety disorder, unspecified; Z11.52 Encounter for screening for COVID-19; F17.210 Nicotine dependence, cigarettes, uncomplicated; E78.5 Hyperlipidemia, unspecified
CPT/HCPCS: 0241U; 71045; 80053; 80306; 80307; 81001; 84443; 85025; 87086; 93005; 96372; 99285; J1885

== ENCOUNTER 2024-01-24 07:01 | Emergency (ER) | payer MEDICARE, OTHER, SELFPAY ==
[2024-01-24 07:09] VITALS: BP 164/79; PULSE 57; RESP 18; TEMP 36.7; O2SAT 98; BMI 24.4
[2024-01-24 07:25] LABS: Bilirubin Urine Negative (Negative); Blood Urine Negative (Negative); Glucose Urine UA Negative (Normal); Ketones Urine Negative (Negative); Leukocyte Esterase Urine Negative (Negative); Nitrate Urine Negative (Negative); Protein Urine Negative (Negative); Specific Gravity, Urine 1.013 (1.005-1.030); Urine Appearance Clear (CLEAR); Urine Color Yellow (Yellow); pH Urine 6.5 (5-7)
[2024-01-24 07:30] LABS: Add Urine Microscopic? YES; Bacteria Urine None Seen /hpf; Hyaline Casts Urine 0-4 /lpf; RBC Urine 0-2 /hpf (0-2); Squamous Epithelial Cell Urine 0-5 /hpf (0-5); WBC Urine 0-5 /hpf (0-5)
[2024-01-24 07:45] VITALS: BP 164/79; PULSE 56; RESP 16; O2SAT 94
[2024-01-24 08:08] LABS: Basophils # 0.1 10^3/uL (0.0-0.1); Basophils % 0.7 %; Eosinophils # 0.2 10^3/uL (0.0-0.8); Eosinophils % 2.1 %; Hematocrit 42.2 % (37-53); Lymphocytes # 1.9 10^3/uL (0.8-4.8); Lymphocytes % 20.6 %; Mean Corpuscular HGB Conc 33.4 g/dL (30-55); Mean Corpuscular Hemoglobin 32.4 pg (27-33); Mean Platelet Volume 10.8 fL (7.4-10.4); Monocytes # 0.8 10^3/uL (0.2-0.9); Monocytes % 8.8 %; Neutrophils # 6.18 10^3/uL (1.8-7.7); Neutrophils % 67.3 %; Nucleated Red Blood Cells % 0 %; Platelet Count 248 10^3/cmm (157-399); Red Blood Count 4.35 10^6/uL (3.85-5.65); Red Cell Distribution Width 12.4 % (12.1-15.1); White Blood Count 9.18 10^3/uL (3.29-11.43)
[2024-01-24 08:29] LABS: Alanine Aminotransferase 25 U/L (0-41); Albumin Level 4.2 g/dL (3.5-5.2); Alkaline Phosphatase 152 U/L (40-130); Anion Gap 14.3 (5-19); Aspartate Amino Transferase 19 U/L (0-40); Blood Urea Nitrogen 16 mg/dL (8-23); Calcium 9.3 mg/dL (8.5-10.5); Carbon Dioxide 26 mmol/L (22-29); Chloride 101 mmol/L (98-107); Creatinine Clr Calc Pharmacy 77.4658; Globulin 2.4 g/dL (1.3-4.6); Glucose 118 mg/dL (65-115); Osmolality Calculated 286 mOsm/kg (285-295); Potassium 4.3 mmol/L (3.5-5.1); Sodium 137 mmol/L (136-145); Total Bilirubin 0.5 mg/dL (0.15-1.2); Total Protein 6.6 g/dL (6.6-8.7)
[2024-01-24 08:41] VITALS: BP 131/78; PULSE 107; RESP 16; O2SAT 97
[2024-01-24 09:41] VITALS: BP 150/81; PULSE 61; RESP 16; O2SAT 100
--- NOTE | 2024-01-24 10:08 | W.ED.MALEGU ---
HPI - Male Genitourinary General: Chief complaint: Urogenital-Male Stated complaint: urinary pain Time Seen by Provider: 01/24/24 08:01 History of Present Illness: 83-year-old male who presents to the emergency room complaining difficulty with urination. He feels like he needs to urinate frequently does not feel like he empties his bladder completely. He has no dysuria. Last time he was seen he was started on antibiotics and given Pyridium that seem to help. He denies any hematuria no flank pain no fever sweats or chills Associated symptoms: Deny dysuria Related Data Home Medications Medication Instructions Recorded Confirmed aspirin 81 mg tablet,delayed 81 mg PO QAM 12/04/21 01/24/24 release clopidogrel 75 mg tablet 75 mg PO QPM 08/19/23 01/24/24 atorvastatin 40 mg tablet 40 mg PO DAILY 01/24/24 01/24/24 buspirone 10 mg tablet 10 mg PO TID 01/24/24 01/24/24 duloxetine 30 mg capsule,delayed 30 mg PO DAILY 01/24/24 01/24/24 release eszopiclone 1 mg tablet 1 mg PO BEDTIME 01/24/24 01/24/24 Previous Rx's Medication Instructions Recorded albuterol sulfate 90 mcg/actuation 2 puff inhalation Q4H PRN 08/23/23 aerosol inhaler (Ventolin HFA) shortness of breath or wheezing #8.5 grams budesonide 160 mcg-glycopyr 9 2 inh inhalation BID #10.7 grams 08/23/23 mcg-formot 4.8 mcg/actuation HFA inhaler (Breztri Aerosphere) trazodone 50 mg tablet 100 mg (2 x 50 mg) PO .HS PRN 12/04/23 insomnia #60 tabs pregabalin 50 mg capsule 50 mg PO TID #90 caps 01/07/24 tamsulosin 0.4 mg capsule 0.4 mg PO DAILY #30 caps 01/24/24 Allergies Allergy/AdvReac Type Severity Reaction Status Date / Time No Known Allergies Allergy Verified 01/17/24 18:20 Review of Systems Const: Denies: fever(s) or chills Card: Denies: chest pain Resp: Denies: dyspnea GI: Denies: abdominal pain : Reports: urinary frequency, urinary dribbling and difficulty starting urination; Denies: flank pain, dysuria or urinary urgency Musc: Denies: neck pain or back pain Skin/Breast: Denies: rash PFSH ED PFSH: Medical History Psychiatric care Depression Right inguinal hernia Hyperlipidemia Anxiety BPH (benign prostatic hyperplasia) Back pain with history of spinal surgery Surgical History Status post right inguinal hernia repair History of back surgery Status post left knee replacement H/O shoulder surgery bilateral rotator cuff repairs H/O circumcision H/O colonoscopy 3 yrs ago Family History Denies family history of Diabetes Anesthesia complication Bleeding disorder Cancer Social History Smoking and tobacco/nicotine status: current every day tobacco/nicotine user cigarettes Packs smoked per day: 1 [ Other cigarette details: STARTED SMOKING IN 1959] Quit status (tobacco/nicotine): not considering quitting Second hand smoke exposure: No Alcohol intake: current Alcohol intake frequency: few times a week Substance/Drug Use: never Household members: family Marital status: Single Current occupational status: retired Physical Exam Const: GENERAL APPEARANCE: cooperative ORIENTATION/CONSCIOUSNESS: Yes awake, Yes oriented to person, Yes oriented to place and Yes oriented to time HENMT: COMMON NORMALS: normocephalic, atraumatic and hearing grossly normal bilaterally HEAD & SCALP: normocephalic and atraumatic Resp: COMMON NORMALS: normal respiratory effort, No retractions, No use of accessory muscles and clear to auscultation bilaterally AUSCULTATION: clear to auscultation bilaterally Cardio: COMMON NORMALS: regular rate, regular rhythm and No murmurs present (Cardio) RATE: regular rate RHYTHM: regular rhythm GI: COMMON NORMALS: Soft to palpation and No hepatosplenomegaly present AUSCULTATION: Yes normoactive bowel sounds PALPATION: Yes Soft to palpation, No Tenderness to palpation present (GI), No Guarding due to palpation present (GI) and Yes No hepatosplenomegaly present Extremity: COMMON NORMALS: normal to inspection, capillary refill normal, no clubbing, cyanosis or edema, no calf tenderness and no pedal edema Neuro: SENSORIUM/ORIENTATION: Yes oriented to person, Yes oriented to place and Yes oriented to time Skin: COMMON NORMALS: no rashes or lesions noted GENERAL SKIN EXAM: no rashes or lesions noted Course Vital Signs: Vital signs: Vital Signs Temperature 98.1 F 01/24/24 07:09 Pulse Rate 61 01/24/24 09:41 Respiratory Rate 16 01/24/24 09:41 Blood Pressure 150/81 01/24/24 09:41 Pulse Oximetry 100 01/24/24 09:41 Oxygen Delivery Me thod Room Air 01/24/24 08:41 MDM - Male Medical Decision Making Postvoid bladder scan only showed 118 mL. UA did not show any signs of cystitis. Will discharge patient home suspect this is more BPH she does have a mild increase in his alk phos. Could be from a number of sources 1 concern would be if it is related to his prostate. At this point I think we can discharge patient home he had been taking tamsulosin alone but had stopped will restart him 0.4 nightly if no improvement in the next few days increase to 0.8 nightly follow-up with his primary care doctor he may need to have secondary medications added such as finasteride. Additionally discussed the alk phos elevation he should have that rechecked by his primary care doctor may be from any number of sources but if it continues to elevate would warrant further evaluation especially given his BPH symptoms. Medical Records I reviewed the patient's medical records. Lab Data I reviewed the patient's lab results. 01/24/24 07:54 01/24/24 07:54 Laboratory Results WBC 9.18 10^3/uL (3.29-11.43) 01/24/24 07:54 RBC 4.35 10^6/uL (3.85-5.65) 01/24/24 07:54 Hgb 14.10 g/dL (11.27-16.99) 01/24/24 07:54 Hct 42.2 % (37-53) 01/24/24 07:54 MCV 97.0 fl (82-101) 01/24/24 07:54 MCH 32.4 pg (27-33) 01/24/24 07:54 MCHC 33.4 g/dL (30-55) 01/24/24 07:54 RDW 12.4 % (12.1-15.1) 01/24/24 07:54 Plt Count 248 10^3/cmm (157-399) 01/24/24 07:54 MPV 10.8 fL (7.4-10.4) H 01/24/24 07:54 Neut % (Auto) 67.3 % 01/24/24 07:54 Lymph % (Auto) 20.6 % 01/24/24 07:54 [place] % (Auto) 8.8 % 01/24/24 07:54 Eos % (Auto) 2.1 % 01/24/24 07:54 Baso % (Auto) 0.7 % 01/24/24 07:54 Neut # (Auto) 6.18 10^3/uL (1.8-7.7) 01/24/24 07:54 Lymph # (Auto) 1.9 10^3/uL (0.8-4.8) 01/24/24 07:54 [place] # (Auto) 0.8 10^3/uL (0.2-0.9) 01/24/24 07:54 Eos # (Auto) 0.2 10^3/uL (0.0-0.8) 01/24/24 07:54 Baso # (Auto) 0.1 10^3/uL (0.0-0.1) 01/24/24 07:54 Nucleated RBC % (auto) 0 % 01/24/24 07:54 Nucleated RBCs # 0.0 /100WBC 01/24/24 07:54 Sodium 137 mmol/L (136-145) 01/24/24 07:54 Potassium 4.3 mmol/L (3.5-5.1) 01/24/24 07:54 Chloride 101 mmol/L (98-107) 01/24/24 07:54 Carbon Dioxide 26 mmol/L (22-29) 01/24/24 07:54 Anion Gap 14.3 (5-19) 01/24/24 07:54 BUN 16 mg/dL (8-23) 01/24/24 07:54 Creatinine 0.7 mg/dL (0.7-1.2) 01/24/24 07:54 GFR Calculation Not Reportable 01/24/24 07:54 Glucose 118 mg/dL (65-115) H 01/24/24 07:54 Calculated Osmolality 286 mOsm/kg (285-295) 01/24/24 07:54 Calcium 9.3 mg/dL (8.5-10.5) 01/24/24 07:54 Total Bilirubin 0.5 mg/dL (0.15-1.2) 01/24/24 07:54 AST 19 U/L (0-40) 01/24/24 07:54 ALT 25 U/L (0-41) 01/24/24 07:54 Alkaline Phosphatase 152 U/L (40-130) H 01/24/24 07:54 Total Protein 6.6 g/dL (6.6-8.7) 01/24/24 07:54 Albumin 4.2 g/dL (3.5-5.2) 01/24/24 07:54 Globulin 2.4 g/dL (1.3-4.6) 01/24/24 07:54 Urine Color Yellow (Yellow) 01/24/24 07:10 Urine Appearance Clear (CLEAR) 01/24/24 07:10 Urine pH 6.5 (5-7) 01/24/24 07:10 Ur Specific [place] 1.013 (1.005-1.030) 01/24/24 07:10 Urine Protein Negative (Negative) 01/24/24 07:10 Urine Glucose (UA) Negative (Normal) 01/24/24 07:10 Urine Ketones Negative (Negative) 01/24/24 07:10 Urine Blood Negative (Negative) 01/24/24 07:10 Urine Nitrate Negative (Negative) 01/24/24 07:10 Urine Bilirubin Negative (Negative) 01/24/24 07:10 Urine Urobilinogen 1.0 mg/dL (Negative) 01/24/24 07:10 Ur Leukocyte Esterase Negative (Negative) 01/24/24 07:10 Urine RBC 0-2 /hpf (0-2) 01/24/24 07:10 Urine WBC 0-5 /hpf (0-5) 01/24/24 07:10 Ur Squamous Epith Cells 0-5 /hpf (0-5) 01/24/24 07:10 Amorphous Sediment Not Reportable 01/24/24 07:10 Urine Bacteria None seen /hpf (NONE) 01/24/24 07:10 Hyaline Casts 0-4 /lpf H 01/24/24 07:10 No radiology studies performed this visit Discharge Plan Discharge Patient Disposition: Home Clinical Impression: BPH (benign prostatic hyperplasia) Condition: Stable Prescriptions: New tamsulosin 0.4 mg capsule 0.4 mg PO DAILY Qty: 30 0RF Discontinued tamsulosin 0.4 mg capsule 0.8 mg PO QAM No Action Breztri Aerosphere 160-9-4.8 mcg/actuation HFA aerosol inhaler 2 inh inhalation BID Qty: 10.7 11RF albuterol sulfate [Ventolin HFA] 90 mcg/actuation HFA aerosol inhaler 2 puff inhalation Q4H PRN (Reason: shortness of breath or wheezing) Qty: 8.5 1RF pregabalin 50 mg capsule 50 mg PO TID Qty: 90 2RF Rx Instructions: Start one tab at bedtime x 1 wk, then BID x 1 wk, then may take TID. aspirin 81 mg tablet,delayed release (DR/EC) 81 mg PO QAM trazodone 50 mg tablet 100 mg PO .HS PRN (Reason: insomnia) Qty: 60 2RF clopidogrel 75 mg tablet 75 mg PO QPM atorvastatin 40 mg tablet 40 mg PO DAILY buspirone 10 mg Tablet 10 mg PO TID duloxetine 30 mg Capsule,Delayed Release(Dr/Ec) 30 mg PO DAILY eszopiclone 1 mg Tablet 1 mg PO BEDTIME Discharge Orders: Discharge ED (Routine); Ordered 01/24/24 Ordered By: Yoni Lawson Referrals: Shirley Duke DISTANCE LEARNING TECHNICIAN [Primary Care Provider] - Discharge Diet: Usual diet Discharge Activity: Increase activity as tolerated Patient Instructions: Opioid Safety, Pain Management Activity Restrictions/Additional Instructions: Thank you for choosing [facility] for your healthcare needs today. It is very important that you follow up as instructed or that you return to the Emergency Department should you have concerns or if your condition changes or worsens in any way. You were seen this morning for difficulty with urination there is no sign of infection there is only minimal residual urine after you had urinated and you did not require Oliveros catheterization. Should continue your tamsulosin: 0.8 mg daily and also recommend you start finasteride 5 mg daily. Follow-up with your doctor in the next 1 to 2 weeks to reevaluate for effectiveness and possible referral to urology. Coding Level of Care Code ED Physician Assistant Psychiatry for Tello Garvin
== END 2024-01-24 09:43 | disposition home or self-care (01) ==
PROVIDERS: Emergency Provider Family Medicine; PCP Nurse Practitioner Family
DX: N40.0 Benign prostatic hyperplasia without lower urinary tract symptoms (principal); Z79.02 Long term (current) use of antithrombotics/antiplatelets; Z79.82 Long term (current) use of aspirin; F17.210 Nicotine dependence, cigarettes, uncomplicated; E78.5 Hyperlipidemia, unspecified
CPT/HCPCS: 36415; 51798; 80053; 81001; 85025; 99283

== ENCOUNTER 2024-01-30 07:30 | Emergency (ER) | payer MEDICARE, OTHER, SELFPAY ==
[2024-01-30 07:37] VITALS: BP 149/83; PULSE 71; RESP 20; TEMP 36.9; O2SAT 97; BMI 24.4
--- NOTE | 2024-01-30 07:37 | W.ED.ABDPA2 ---
HPI - Abdominal Pain General: Chief Complaint: Abdominal Pain Stated Complaint: sharp abd pain Time Seen by Provider: 01/30/24 07:31 History of Present Illness: 83-year-old male presents emergency room with complaint of sharp abdominal pain. For the most of the pain to periumbilical and infraumbilical. He does have bowel back is associated with it as well. He does have loose stools he is not noticing hematochezia or melena. He has been nauseous but no vomiting. He states he has been able to urinate better. He was seen in the emergency room 6 days ago at that time patient had a mildly elevated alk phos and additionally leukoplakia difficulty with urination. His postvoid residual was rather minimal he was certainly not evidence any retained urine his urine analysis was clear. He was started on tamsulosin. He states he had actually felt better after initiating that and then overnight began having the abdominal pain. Associated Symptoms: Denies chills, dysuria and fever(s) Related Data Home Medications Medication Instructions Recorded Confirmed aspirin 81 mg tablet,delayed 81 mg PO QAM 12/04/21 01/30/24 release clopidogrel 75 mg tablet 75 mg PO QPM 08/19/23 01/30/24 atorvastatin 40 mg tablet 40 mg PO DAILY 01/24/24 01/30/24 alprazolam 0.5 mg tablet,extended 0.5 mg PO BEDTIME 01/30/24 01/30/24 release 24 hr Previous Rx's Medication Instructions Recorded albuterol sulfate 90 mcg/actuation 2 puff inhalation Q4H PRN 08/23/23 aerosol inhaler (Ventolin HFA) shortness of breath or wheezing #8.5 grams trazodone 50 mg tablet 100 mg (2 x 50 mg) PO .HS PRN 12/04/23 insomnia #60 tabs pregabalin 50 mg capsule 50 mg PO TID #90 caps 01/07/24 tamsulosin 0.4 mg capsule 0.4 mg PO DAILY #30 caps 01/24/24 hydroxyzine HCl 25 mg tablet 25 mg PO Q6H PRN anxiety #60 tabs 01/31/24 Allergies Allergy/AdvReac Type Severity Reaction Status Date / Time No Known Allergies Allergy Verified 01/30/24 07:44 Review of Systems Const: Denies: fever(s) or chills Card: Denies: chest pain Resp: Denies: dyspnea GI: Reports: abdominal pain : Denies: dysuria, urinary frequency or urinary urgency Musc: Reports: back pain (Chronic); Denies: neck pain Skin/Breast: Denies: rash PFSH ED PFSH: Medical History Psychiatric care Depression Right inguinal hernia Hyperlipidemia Anxiety BPH (benign prostatic hyperplasia) Back pain with history of spinal surgery Surgical History Status post right inguinal hernia repair History of back surgery Status post left knee replacement H/O shoulder surgery bilateral rotator cuff repairs H/O circumcision H/O colonoscopy 3 yrs ago Family History Denies family history of Diabetes Anesthesia complication Bleeding disorder Cancer Social History Smoking and tobacco/nicotine status: current every day tobacco/nicotine user cigarettes Packs smoked per day: 1 [ Other cigarette details: STARTED SMOKING IN 1959] Quit status (tobacco/nicotine): not considering quitting Second hand smoke exposure: No Alcohol intake: current Alcohol intake frequency: few times a week Substance/Drug Use: never Household members: family Marital status: Single Current occupational status: retired Physical Exam Const: GENERAL APPEARANCE: cooperative ORIENTATION/CONSCIOUSNESS: Yes awake, Yes oriented to person, Yes oriented to place and Yes oriented to time HENMT: COMMON NORMALS: normocephalic, atraumatic and hearing grossly normal bilaterally HEAD & SCALP: normocephalic and atraumatic Resp: COMMON NORMALS: normal respiratory effort, No retractions, No use of accessory muscles and clear to auscultation bilaterally AUSCULTATION: clear to auscultation bilaterally Cardio: COMMON NORMALS: regular rate, regular rhythm and No murmurs present (Cardio) RATE: regular rate RHYTHM: regular rhythm GI: COMMON NORMALS: Soft to palpation and No hepatosplenomegaly present AUSCULTATION: Yes normoactive bowel sounds PALPATION: Yes Soft to palpation, No Tenderness to palpation present (GI), No Guarding due to palpation present (GI) and Yes No hepatosplenomegaly present Extremity: COMMON NORMALS: normal to inspection, capillary refill normal, no clubbing, cyanosis or edema, no calf tenderness and no pedal edema Neuro: SENSORIUM/ORIENTATION: Yes oriented to person, Yes oriented to place and Yes oriented to time Skin: COMMON NORMALS: no rashes or lesions noted GENERAL SKIN EXAM: no rashes or lesions noted Course Vital Signs: Vital signs: Vital Signs Temperature 98.5 F 01/30/24 07:37 Pulse Rate 63 01/30/24 11:13 Respiratory Rate 17 01/30/24 08:13 Blood Pressure 149/83 01/30/24 11:13 Pulse Oximetry 98 01/30/24 11:13 Oxygen Delivery Me thod Room Air 01/30/24 10:30 MDM - Abdominal Pain Medical Decision Making Patient complaining of abdominal pain laboratory test did not show any acute finding CT of the abdomen did not show any acute findings. Laboratory tests were normal. White count is normal. Medical Records I reviewed the patient's medical records. Lab Data I reviewed the patient's lab results. 01/30/24 07:39 01/30/24 07:39 Labs/Radiology: Radiology Impressions Abdomen/Pelvis CT 01/30/24 07:42 IMPRESSION: 1. No acute findings in the abdomen or pelvis. 2. No hydronephrosis in either kidney. 3. Small esophageal hiatal hernia. 4. Mild stable dilatation common bile duct. Noncontrast gallbladder appears normal. 5. Sigmoid diverticulosis. No evidence of acute diverticulitis. 6. Enlarged prostate. Laboratory Results WBC 9.61 10^3/uL (3.29-11.43) 01/30/24 07:39 RBC 4.30 10^6/uL (3.85-5.65) 01/30/24 07:39 Hgb 13.70 g/dL (11.27-16.99) 01/30/24 07:39 Hct 42.6 % (37-53) 01/30/24 07:39 MCV 99.1 fl (82-101) 01/30/24 07:39 MCH 31.9 pg (27-33) 01/30/24 07:39 MCHC 32.2 g/dL (30-55) 01/30/24 07:39 RDW 12.4 % (12.1-15.1) 01/30/24 07:39 Plt Count 255 10^3/cmm (157-399) 01/30/24 07:39 MPV 10.7 fL (7.4-10.4) H 01/30/24 07:39 Neut % (Auto) 71.9 % 01/30/24 07:39 Lymph % (Auto) 15.9 % 01/30/24 07:39 [place] % (Auto) 8.6 % 01/30/24 07:39 Eos % (Auto) 2.1 % 01/30/24 07:39 Baso % (Auto) 0.6 % 01/30/24 07:39 Neut # (Auto) 6.90 10^3/uL (1.8-7.7) 01/30/24 07:39 Lymph # (Auto) 1.5 10^3/uL (0.8-4.8) 01/30/24 07:39 [place] # (Auto) 0.8 10^3/uL (0.2-0.9) 01/30/24 07:39 Eos # (Auto) 0.2 10^3/uL (0.0-0.8) 01/30/24 07:39 Baso # (Auto) 0.1 10^3/uL (0.0-0.1) 01/30/24 07:39 Nucleated RBC % (auto) 0 % 01/30/24 07:39 Nucleated RBCs # 0.0 /100WBC 01/30/24 07:39 Sodium 139 mmol/L (136-145) 01/30/24 07:39 Potassium 4.6 mmol/L (3.5-5.1) 01/30/24 07:39 Chloride 106 mmol/L (98-107) 01/30/24 07:39 Carbon Dioxide 25 mmol/L (22-29) 01/30/24 07:39 Anion Gap 12.6 (5-19) 01/30/24 07:39 BUN 18 mg/dL (8-23) 01/30/24 07:39 Creatinine 0.6 mg/dL (0.7-1.2) L 01/30/24 07:39 GFR Calculation Not Reportable 01/30/24 07:39 Glucose 102 mg/dL (65-115) 01/30/24 07:39 Calculated Osmolality 290 mOsm/kg (285-295) 01/30/24 07:39 Calcium 9.2 mg/dL (8.5-10.5) 01/30/24 07:39 Total Bilirubin 0.2 mg/dL (0.15-1.2) 01/30/24 07:39 AST 17 U/L (0-40) 01/30/24 07:39 ALT 20 U/L (0-41) 01/30/24 07:39 Alkaline Phosphatase 169 U/L (40-130) H 01/30/24 07:39 Total Protein 6.8 g/dL (6.6-8.7) 01/30/24 07:39 Albumin 4.0 g/dL (3.5-5.2) 01/30/24 07:39 Globulin 2.8 g/dL (1.3-4.6) 01/30/24 07:39 Lipase 47 U/L (13-60) 01/30/24 07:39 Urine Color Yellow (Yellow) 01/30/24 08:33 Urine Appearance Clear (CLEAR) 01/30/24 08:33 Urine pH 5.5 (5-7) 01/30/24 08:33 Ur Specific [place] 1.017 (1.005-1.030) 01/30/24 08:33 Urine Protein Negative (Negative) 01/30/24 08:33 Urine Glucose (UA) Negative (Normal) 01/30/24 08:33 Urine Ketones Negative (Negative) 01/30/24 08:33 Urine Blood Negative (Negative) 01/30/24 08:33 Urine Nitrate Negative (Negative) 01/30/24 08:33 Urine Bilirubin Negative (Negative) 01/30/24 08:33 Urine Urobilinogen 0.2 mg/dL (Negative) 01/30/24 08:33 Ur Leukocyte Esterase Trace (Negative) A 01/30/24 08:33 Urine RBC 0-2 /hpf (0-2) 01/30/24 08:33 Urine WBC 0-5 /hpf (0-5) 01/30/24 08:33 Ur Squamous Epith Cells 0-5 /hpf (0-5) 01/30/24 08:33 Amorphous Sediment Not Reportable 01/30/24 08:33 Urine Bacteria None seen /hpf (NONE) 01/30/24 08:33 Hyaline Casts 0-4 /lpf H 01/30/24 08:33 All radiology interpretation(s) finalized by discharge Discharge Plan Discharge Patient Disposition: Home Clinical Impression: Abdominal pain, Anxiety, Insomnia Condition: Stable Prescriptions: No Action albuterol sulfate [Ventolin HFA] 90 mcg/actuation HFA aerosol inhaler 2 puff inhalation Q4H PRN (Reason: shortness of breath or wheezing) Qty: 8.5 1RF pregabalin 50 mg capsule 50 mg PO TID Qty: 90 2RF Rx Instructions: Start one tab at bedtime x 1 wk, then BID x 1 wk, then may take TID. aspirin 81 mg tablet,delayed release (DR/EC) 81 mg PO QAM trazodone 50 mg tablet 100 mg PO .HS PRN (Reason: insomnia) Qty: 60 2RF hydroxyzine HCl 25 mg tablet 25 mg PO Q6H PRN (Reason: anxiety) Qty: 60 1RF alprazolam 0.5 mg tablet extended release 24 hr 0.5 mg PO BEDTIME clopidogrel 75 mg tablet 75 mg PO QPM atorvastatin 40 mg tablet 40 mg PO DAILY tamsulosin 0.4 mg capsule 0.4 mg PO DAILY Qty: 30 0RF Discharge Orders: Discharge ED (Routine); Ordered 01/30/24 Ordered By: Yoni Lawson Referrals: Shirley Duke NP [Primary Care Provider] - Discharge Diet: Usual diet Discharge Activity: Increase activity as tolerated Patient Instructions: Abdominal Pain (ED), Opioid Safety, Pain Management Activity Restrictions/Additional Instructions: Thank you for choosing [facility] for your healthcare needs today. It is very important that you follow up as instructed or that you return to the Emergency Department should you have concerns or if your condition changes or worsens in any way. You are seen today complaining of abdominal pain. CT of your abdomen was negative laboratory test showed elevation in your alk phos which was seen previously the remainder of your laboratory tests were noncontributory. We reviewed the findings with you you had mentioned about anxiety issues this may very well be driving some the abdominal discomfort and the insomnia that you had noted. You can use hydroxyzine 25 mg every 6 hours as needed. You could take 2 at night before you go to bed these will make you sleepy but also can cause some dry mouth. Recommend that you follow-up with your primary care doctor regarding long-term options for the insomnia and anxiety issues. You also should have follow-up on the elevated alk phos. Coding Level of Care Code ED Clinical Documentation Clerk for Tello Garvin
--- NOTE | 2024-01-30 07:42 | CT_ITS ---
WS: [id number] CT ABDOMEN PELVIS TECHNIQUE: Noncontrast CT of the abdomen and pelvis with coronal and sagittal reformatted images. CLINICAL INFORMATION: Abdominal pain COMPARISON: 08/19/2023 DLP: 467.[address] scans at [facility] use at least one of these dose optimization techniques: automated e xposure control; mA and/or kV adjustment per patient size (includes targeted exams where dose is matc hed to clinical indication); or iterative reconstruction. FINDINGS: Lung bases are well aerated. Normal noncontrast liver. Mild dilatation of the common bile duct unchan ged compared to previous. Noncontrast gallbladder appears normal. Adrenal glands are normal. No hydro nephrosis. Few tiny nonobstructing calyceal tip calculi. Splenic artery calcification. Noncontrast pa ncreas appears normal. Normal noncontrast spleen. Spleen granulomas. Tiny esophageal hiatal hernia. N ormal appendix Enlarged prostate measuring 4.1 x 4.4 cm. Sigmoid diverticulosis. No evidence of acute diverticulitis . Prior postoperative changes lumbar spine. Stable retrolisthesis L2 on L3.. CT/CT abdomen pelvis wo con [id number] IMPRESSION: 1. No acute findings in the abdomen or pelvis. 2. No hydronephrosis in either kidney. 3. Small esophageal hiatal hernia. 4. Mild stable dilatation common bile duct. Noncontrast gallbladder appears no rmal. 5. Sigmoid diverticulosis. No evidence of acute diverticulitis. 6. Enlarged prostate.
[2024-01-30 07:49] LABS: Basophils # 0.1 10^3/uL (0.0-0.1); Basophils % 0.6 %; Eosinophils # 0.2 10^3/uL (0.0-0.8); Eosinophils % 2.1 %; Hematocrit 42.6 % (37-53); Lymphocytes # 1.5 10^3/uL (0.8-4.8); Lymphocytes % 15.9 %; Mean Corpuscular HGB Conc 32.2 g/dL (30-55); Mean Corpuscular Hemoglobin 31.9 pg (27-33); Mean Corpuscular Volume 99.1 fl (82-101); Mean Platelet Volume 10.7 fL (7.4-10.4); Monocytes # 0.8 10^3/uL (0.2-0.9); Monocytes % 8.6 %; Neutrophils % 71.9 %; Nucleated Red Blood Cells % 0 %; Platelet Count 255 10^3/cmm (157-399); Red Cell Distribution Width 12.4 % (12.1-15.1); White Blood Count 9.61 10^3/uL (3.29-11.43)
[2024-01-30 07:52] VITALS: BP 149/83; PULSE 68; O2SAT 97
[2024-01-30 08:05] LABS: Alanine Aminotransferase 20 U/L (0-41); Alkaline Phosphatase 169 U/L (40-130); Blood Urea Nitrogen 18 mg/dL (8-23); Calcium 9.2 mg/dL (8.5-10.5); Carbon Dioxide 25 mmol/L (22-29); Chloride 106 mmol/L (98-107); Creatinine Clr Calc Pharmacy 77.4658; Globulin 2.8 g/dL (1.3-4.6); Glucose 102 mg/dL (65-115); Lipase 47 U/L (13-60); Osmolality Calculated 290 mOsm/kg (285-295); Sodium 139 mmol/L (136-145); Total Bilirubin 0.2 mg/dL (0.15-1.2); Total Protein 6.8 g/dL (6.6-8.7)
[2024-01-30 08:13] VITALS: RESP 17; O2SAT 99
[2024-01-30] MEDS: morphine 4 mg/mL SDV 1 mL IVP (08:13)
[2024-01-30 08:17] VITALS: PULSE 68; O2SAT 98
[2024-01-30 08:17] LABS: Anion Gap 12.6 (5-19); Potassium 4.6 mmol/L (3.5-5.1)
[2024-01-30 08:18] LABS: Aspartate Amino Transferase 17 U/L (0-40)
--- NOTE | 2024-01-30 08:36 | PC.NURSE ---
pt voided 15mL urine, post-void scan 110mL
[2024-01-30 09:13] LABS: Bilirubin Urine Negative (Negative); Blood Urine Negative (Negative); Glucose Urine UA Negative (Normal); Ketones Urine Negative (Negative); Leukocyte Esterase Urine Trace (Negative); Nitrate Urine Negative (Negative); Protein Urine Negative (Negative); Specific Gravity, Urine 1.017 (1.005-1.030); Urine Appearance Clear (CLEAR); Urine Color Yellow (Yellow); Urobilinogen Urine 0.2 mg/dL (Negative); pH Urine 5.5 (5-7)
[2024-01-30 09:18] LABS: Add Urine Microscopic? YES; Bacteria Urine None Seen /hpf; Hyaline Casts Urine 0-4 /lpf; RBC Urine 0-2 /hpf (0-2); Squamous Epithelial Cell Urine 0-5 /hpf (0-5); WBC Urine 0-5 /hpf (0-5)
--- NOTE | 2024-01-30 09:22 | PC.NURSE ---
pt second void approx 150mL
[2024-01-30 09:29] LABS: Add Urine Culture? No
[2024-01-30] MEDS: acetaminophen 325 mg Tablet 650 MG PO (10:24)
[2024-01-30] MEDS: ketorolac 30 mg/mL INJ 15 MG IVP (10:25)
[2024-01-30 10:30] VITALS: PULSE 64; O2SAT 99
[2024-01-30 11:13] VITALS: BP 149/83; PULSE 63; O2SAT 98
== END 2024-01-30 11:19 | disposition home or self-care (01) ==
PROVIDERS: Emergency Provider Family Medicine; PCP Nurse Practitioner Family
DX: F41.9 Anxiety disorder, unspecified (principal); G47.00 Insomnia, unspecified; Z79.02 Long term (current) use of antithrombotics/antiplatelets; Z79.82 Long term (current) use of aspirin; R10.33 Periumbilical pain; E78.5 Hyperlipidemia, unspecified; F17.210 Nicotine dependence, cigarettes, uncomplicated
CPT/HCPCS: 51798; 74176; 80053; 81001; 83690; 85025; 96374; 96375; 99285; J1885; J2270

== ENCOUNTER 2024-02-03 18:49 | Emergency (ER) | payer MEDICARE, OTHER, SELFPAY ==
[2024-02-03] VITALS (7 sets, daily range): BP systolic 119–152; BP diastolic 72–90; PULSE 60–75; RESP 16–18; TEMP 36.4; O2SAT 94–100; BMI 23.7
--- NOTE | 2024-02-03 18:59 | XRR_ITS ---
PROCEDURE INFORMATION: Exam: XR Chest Exam date and time: 02/03/2024 7:03 PM Age: 83 years old Clinical indication: Shortness of breath TECHNIQUE: Imaging protocol: Radiologic exam of the chest. Views: 1 view. COMPARISON: CR (CHEST, ) 01/18/2024 7:28 PM FINDINGS: Lungs: No focal consolidation. Mid to lower lung hazy opacities on the right raising the question of a viral pneumonia in the proper clinical setting. Pleural spaces: No evidence of pneumothorax. No evidence of pleural effusion. Heart/Mediastinum: Cardiomediastinal silhouette is within normal limits. Bones/joints: No evidence of acute osseous abnormality. XR/XR chest 1V portable [id number] IMPRESSION: 1. Mid to lower lung hazy opacities on the right raising the question of a viral pneumonia in the proper clinical setting.
--- NOTE | 2024-02-03 19:01 | ECG_ITS ---
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 Measurements Intervals [place] Rate: 63 P: -4 WI: 138 QRS: 8 QRSD: 87 T: 72 QT: 406 QTc: 417 Interpretive Statements SINUS RHYTHM NONSPECIFIC T-WAVE ABNORMALITY Compared to ECG 01/18/2024 20:07:59 T-wave abnormality now present Electronically Signed On 02-05-2024 01:03:25 CDT by Faviola Nick M.D. [email or web address]
--- NOTE | 2024-02-03 19:07 | ED_ITS ---
HPI - SOB/Dyspnea 2 General: Chief Complaint: Shortness of Breath/Dyspnea Stated Complaint: SOB, Weakness Time Seen by Provider: 02/03/24 18:57 History of Present Illness: HPI Narrative: 83-year-old man with a history of anxiet y, hypertension and hyperlipidemia who presents to the emergency room with shortness of breath has been going on since last night in the middle of the night. He was going to see his doctor tomorrow but that got moved back for a week and the shortness of breath away. He says this happens to him sometimes but usually go away. His vitals are normal on presentation. 100% on room air. No increased work of breathing. He is also complaining of some sciatic pain. He says he has this occasionally. He says he had it several years back and ended up getting a steroid shot which helped. Related Data Home Medications Medication Instructions Recorded Confirmed aspirin 81 mg tablet,delayed 81 mg PO QAM 12/04/21 01/30/24 release clopidogrel 75 mg tablet 75 mg PO QPM 08/19/23 01/30/24 atorvastatin 40 mg tablet 40 mg PO DAILY 01/24/24 01/30/24 alprazolam 0.5 mg tablet,extended 0.5 mg PO BEDTIME 01/30/24 01/30/24 release 24 hr Previous Rx's Medication Instructions Recorded albuterol sulfate 90 mcg/actuation 2 puff inhalation Q4H PRN 08/23/23 aerosol inhaler (Ventolin HFA) shortness of breath or wheezing #8.5 grams trazodone 50 mg tablet 100 mg (2 x 50 mg) PO .HS PRN 12/04/23 insomnia #60 tabs pregabalin 50 mg capsule 50 mg PO TID #90 caps 01/07/24 tamsulosin 0.4 mg capsule 0.4 mg PO DAILY #30 caps 01/24/24 hydroxyzine HCl 25 mg tablet 25 mg PO Q6H PRN anxiety #60 tabs 01/31/24 dexamethasone 6 mg tablet 6 mg PO DAILY 5 days #5 tabs 02/03/24 doxycycline hyclate 100 mg capsule 100 mg PO BID 7 days #14 caps 02/03/24 Allergies Allergy/AdvReac Type Severity Reaction Status Date / Time No Known Allergies Allergy Verified 02/03/24 18:55 Review of Systems 2 Narrative: Constitutional symptoms: Negative except as documented in HPI. Skin symptoms: Negative except as documented in HPI. Eye symptoms: Negative except as documented in HPI. ENMT symptoms: Negative except as documented in HPI. Respiratory symptoms: Negative except as documented in HPI. Cardiovascular symptoms: Negative except as documented in HPI. Gastrointestinal symptoms: Negative except as documented in HPI. Genitourinary symptoms: Negative except as documented in HPI. Musculoskeletal symptoms: Negative except as documented in HPI. Neurologic symptoms: Negative except as documented in HPI. Psychiatric symptoms: Negative except as documented in HPI. Endocrine symptoms: Negative except as documented in HPI. PFSH ED 2 PFSH: Medical History Psychiatric care Depression Right inguinal hernia Hyperlipidemia Anxiety BPH (benign prostatic hyperplasia) Back pain with history of spinal surgery Surgical History Status post right inguinal hernia repair History of back surgery Status post left knee replacement H/O shoulder surgery bilateral rotator cuff repairs H/O circumcision H/O colonoscopy 3 yrs ago Family History Denies family history of Diabetes Anesthesia complication Bleeding disorder Cancer Social History Smoking and tobacco/nicotine status: current every day tobacco/nicotine user cigarettes Packs smoked per day: 1 [ Other cigarette details: STARTED SMOKING IN 1959] Quit status (tobacco/nicotine): not considering quitting Second hand smoke exposure: No Alcohol intake: current Alcohol intake frequency: few times a week Substance/Drug Use: never Household members: family Marital status: Single Current occupational status: retired Physical Exam 2 Narrative: EXAM NARRATIVE: General: Alert, no acute distress. Skin: Warm, dry. Head: Normocephalic, atraumatic. Neck: Supple, trachea midline. Eye: Extraocular movements are intact. Ears, nose, mouth and throat: mucosa moist. Cardiovascular: Regular, Normal peripheral perfusion. Respiratory: Lungs are clear to auscultation, respirations are non-labored, breath sounds are equal, Symmetrical chest wall expansion. Gastrointestinal: Soft, Nontender, Non distended Musculoskeletal: Normal ROM, no deformity. Neurological: Alert and oriented, No focal neurological deficit observed. Psychiatric: Cooperative, appropriate mood & affect. Course 2 Vital Signs: Vital signs: Vital Signs Temperature 97.5 F L 02/03/24 18:52 Pulse Rate 71 02/03/24 18:52 Respiratory Rate 18 02/03/24 18:52 Blood Pressure 119/81 02/03/24 18:52 Pulse Oximetry 100 02/03/24 18:52 Oxygen Delivery Me thod Room Air 02/03/24 18:52 MDM - SOB/Dyspnea Medical Decision Making Differential diagnosis for patient with shortness of breath includes but is not limited to and based on the above HPI, review of systems and physical exam: Pneumonia. Bronchitis. Asthma or COPD with acute exacerbation. Acute coronary syndrome / [place]. Pulmonary embolism. Anxiety. Congestive heart failure. Viral infections including influenza and Covid-19. Atrial fibrillation. Anxiety. Pleural effusion. Pneumothorax. Orders placed to evaluate differential diagnosis based on the above differential, HPI and physical exam Chest x-ray: Some mild patchy infiltrates that might be viral in the right lung. This was reviewed and interpreted by myself the ER physician. EKG: Time 1910. Rate 63. Normal sinus rhythm, No ST-T changes, no ectopy, normal GA & QRS intervals, This was reviewed and interpreted by myself the ER physician at 1915. Lab Review: Laboratory results were reviewed and interpreted by myself the emergency room physician. White count mildly elevated 11. Hemoglobin normal at 13. Platelets normal at 222. BUN and creatinine are 29 and 0.8. BUN is a little bit higher than usual. But creatinine is at baseline. Serial cardiac markers are negative. I reviewed the patient's medical record. Reexamination: Patient remained stable. No increased work of breathing. No altered mental status. No focal motor deficits. Assessment and plan: Community-acquired pneumonia Sciatica ?Decadron and doxycycline IV in the emergency room - Discharged home - Discussed findings and plan with patient. Answered any questions. - All laboratory values were reviewed and interpreted personally by myself, the ER physician - All imaging was reviewed and interpreted personally by myself, the ER physician. - Evaluation and treatment of this problem were appropriate in the emergency setting Lab Data 02/03/24 19:15 02/03/24 19:15 Labs/Radiology: Radiology Impressions Chest X-Ray 02/03/24 18:59 IMPRESSION: 1. Mid to lower lung hazy opacities on the right raising the question of a viral pneumonia in the proper clinical setting. Laboratory Results WBC 11.18 10^3/uL (3.29-11.43) 02/03/24 19:15 RBC 3.94 10^6/uL (3.85-5.65) 02/03/24 19:15 Hgb 13.10 g/dL (11.27-16.99) 02/03/24 19:15 Hct 39.9 % (37-53) 02/03/24 19:15 MCV 101.3 fl (82-101) H 02/03/24 19:15 MCH 33.2 pg (27-33) H 02/03/24 19:15 MCHC 32.8 g/dL (30-55) 02/03/24 19:15 RDW 12.6 % (12.1-15.1) 02/03/24 19:15 Plt Count 222 10^3/cmm (157-399) 02/03/24 19:15 MPV 10.9 fL (7.4-10.4) H 02/03/24 19:15 Neut % (Auto) 71.6 % 02/03/24 19:15 Lymph % (Auto) 16.7 % 02/03/24 19:15 Glenn % (Auto) 8.6 % 02/03/24 19:15 Eos % (Auto) 1.9 % 02/03/24 19:15 Baso % (Auto) 0.6 % 02/03/24 19:15 Neut # (Auto) 8.00 10^3/uL (1.8-7.7) H 02/03/24 19:15 Lymph # (Auto) 1.9 10^3/uL (0.8-4.8) 02/03/24 19:15 Glenn # (Auto) 1.0 10^3/uL (0.2-0.9) H 02/03/24 19:15 Eos # (Auto) 0.2 10^3/uL (0.0-0.8) 02/03/24 19:15 Baso # (Auto) 0.1 10^3/uL (0.0-0.1) 02/03/24 19:15 Nucleated RBC % (auto) 0 % 02/03/24 19:15 Nucleated RBCs # 0.0 /100WBC 02/03/24 19:15 Sodium 139 mmol/L (136-145) 02/03/24 19:15 Potassium 4.5 mmol/L (3.5-5.1) 02/03/24 19:15 Chloride 106 mmol/L (98-107) 02/03/24 19:15 Carbon Dioxide 24 mmol/L (22-29) 02/03/24 19:15 Anion Gap 13.5 (5-19) 02/03/24 19:15 BUN 29 mg/dL (8-23) H 02/03/24 19:15 Creatinine 0.8 mg/dL (0.7-1.2) 02/03/24 19:15 GFR Calculation Not Reportable 02/03/24 19:15 Glucose 99 mg/dL (65-115) 02/03/24 19:15 Calculated Osmolality 294 mOsm/kg (285-295) 02/03/24 19:15 Calcium 9.2 mg/dL (8.5-10.5) 02/03/24 19:15 Total Bilirubin 0.2 mg/dL (0.15-1.2) 02/03/24 19:15 AST 14 U/L (0-40) 02/03/24 19:15 ALT 22 U/L (0-41) 02/03/24 19:15 Alkaline Phosphatase 151 U/L (40-130) H 02/03/24 19:15 Troponin T Baseline 15 ng/L (0-15) 02/03/24 19:15 NT-Pro-B Natriuret Pep 58 pg/mL (0-450) 02/03/24 19:15 Total Protein 6.1 g/dL (6.6-8.7) L 02/03/24 19:15 Albumin 4.1 g/dL (3.5-5.2) 02/03/24 19:15 Globulin 2.0 g/dL (1.3-4.6) 02/03/24 19:15 Coronavirus (PCR) Negative (Negative) 02/03/24 20:15 Influenza A (PCR) Negative (Negative) 02/03/24 20:15 Influenza Type B (PCR) Negative (Negative) 02/03/24 20:15 RSV (PCR) Negative (Negative) 02/03/24 20:15 All radiology interpretation(s) finalized by discharge Discharge Plan Discharge Patient Disposition: Home Clinical Impression: Community acquired pneumonia, Sciatica Condition: Stable Prescriptions: New doxycycline hyclate 100 mg capsule 100 mg PO BID 7 Days Qty: 14 0RF dexamethasone 6 mg tablet 6 mg PO DAILY 5 Days Qty: 5 0RF No Action albuterol sulfate [Ventolin HFA] 90 mcg/actuation HFA aerosol inhaler 2 puff inhalation Q4H PRN (Reason: shortness of breath or wheezing) Qty: 8.5 1RF pregabalin 50 mg capsule 50 mg PO TID Qty: 90 2RF Rx Instructions: Start one tab at bedtime x 1 wk, then BID x 1 wk, then may take TID. aspirin 81 mg tablet,delayed release (DR/EC) 81 mg PO QAM trazodone 50 mg tablet 100 mg PO .HS PRN (Reason: insomnia) Qty: 60 2RF hydroxyzine HCl 25 mg tablet 25 mg PO Q6H PRN (Reason: anxiety) Qty: 60 1RF alprazolam 0.5 mg tablet extended release 24 hr 0.5 mg PO BEDTIME clopidogrel 75 mg tablet 75 mg PO QPM atorvastatin 40 mg tablet 40 mg PO DAILY tamsulosin 0.4 mg capsule 0.4 mg PO DAILY Qty: 30 0RF Discharge Orders: Discharge ED (Routine); Ordered 02/03/24 Ordered By: Lauren Hein Referrals: Shirley Duke, CYBERATHLETE [Primary Care Provider] - Patient Instructions: Sciatica (ED), Community Acquired Pneumonia (ED) Activity Restrictions/Additional Instructions: Thank you for choosing [facility] for your healthcare needs today. Please realize this is an emergency room and that we are providing you with a medical screening exam and this may not be complete and all inclusive of all the testing and or work up that you may need to determine your ailment or severity of your illness. You have been screened and evaluated and felt safe for discharge. Health conditions do change or evolve sometimes and as such it is important that you follow up with your Primary Doctor to be re checked, 3-5 days is a general good time frame for follow up. You are always welcome to return to the ED for re assessment if your symptoms are worsening or you have new concerns Coding Level of Care Code ED Firmware Architect for Tello Garvin
[2024-02-03 19:39] LABS: Basophils # 0.1 10^3/uL (0.0-0.1); Basophils % 0.6 %; Eosinophils # 0.2 10^3/uL (0.0-0.8); Eosinophils % 1.9 %; Hematocrit 39.9 % (37-53); Lymphocytes # 1.9 10^3/uL (0.8-4.8); Lymphocytes % 16.7 %; Mean Corpuscular HGB Conc 32.8 g/dL (30-55); Mean Corpuscular Hemoglobin 33.2 pg (27-33); Mean Corpuscular Volume 101.3 fl (82-101); Mean Platelet Volume 10.9 fL (7.4-10.4); Monocytes % 8.6 %; Neutrophils % 71.6 %; Nucleated Red Blood Cells % 0 %; Platelet Count 222 10^3/cmm (157-399); Red Blood Count 3.94 10^6/uL (3.85-5.65); Red Cell Distribution Width 12.6 % (12.1-15.1); White Blood Count 11.18 10^3/uL (3.29-11.43)
[2024-02-03 19:54] LABS: Troponin(5th) Baseline 15 ng/L (0-15)
[2024-02-03 20:04] LABS: Alanine Aminotransferase 22 U/L (0-41); Albumin Level 4.1 g/dL (3.5-5.2); Alkaline Phosphatase 151 U/L (40-130); Anion Gap 13.5 (5-19); Aspartate Amino Transferase 14 U/L (0-40); Blood Urea Nitrogen 29 mg/dL (8-23); Calcium 9.2 mg/dL (8.5-10.5); Carbon Dioxide 24 mmol/L (22-29); Chloride 106 mmol/L (98-107); Creatinine Clr Calc Pharmacy 76.5523; Glucose 99 mg/dL (65-115); NT Pro B Type Natriuretic Pept 58 pg/mL (0-450); Osmolality Calculated 294 mOsm/kg (285-295); Potassium 4.5 mmol/L (3.5-5.1); Sodium 139 mmol/L (136-145); Total Bilirubin 0.2 mg/dL (0.15-1.2); Total Protein 6.1 g/dL (6.6-8.7)
[2024-02-03 20:56] LABS: Covid PCR NEGATIVE (Negative); Influenza A NEGATIVE (Negative); Influenza B NEGATIVE (Negative); Respiratory Syncytial Virus Ce NEGATIVE (Negative)
--- NOTE | 2024-02-03 21:00 | ECG_ITS ---
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 Measurements Intervals [place] Rate: 58 P: 9 GA: 154 QRS: -7 QRSD: 85 T: 49 QT: 423 QTc: 418 Interpretive Statements SINUS BRADYCARDIA Compared to ECG 02/03/2024 19:11:04 Sinus rhythm no longer present T-wave abnormality no longer present Electronically Signed On 02-05-2024 16:55:01 CDT by Faviola Nick M.D. [id number]
[2024-02-03] MEDS: doxycycline 100 MG in sodium chloride 0.9% (plus) 100 ML IV (21:10)
[2024-02-03] MEDS: HYDROcodone-acetaminophen 5-325 mg Tablet 1 TAB PO (21:26)
[2024-02-03 21:49] LABS: Troponin 5 2HR 15.75 ng/L (0-15); Troponin 5 2HR Delta 0.75 ABS# (0-10)
== END 2024-02-03 22:43 | disposition home or self-care (01) ==
PROVIDERS: Emergency Provider Emergency Medicine; PCP Nurse Practitioner Family
DX: J18.9 Pneumonia, unspecified organism (principal); M54.30 Sciatica, unspecified side; Z79.02 Long term (current) use of antithrombotics/antiplatelets; Z79.82 Long term (current) use of aspirin; E78.5 Hyperlipidemia, unspecified; F17.210 Nicotine dependence, cigarettes, uncomplicated; Z11.52 Encounter for screening for COVID-19
CPT/HCPCS: 0241U; 36415; 71045; 80053; 83880; 84484; 85025; 93005; 96365; 99285; J3490

== ENCOUNTER 2024-02-09 21:47 | Emergency (ER) | payer MEDICARE, OTHER, SELFPAY ==
[2024-02-09 21:53] VITALS: BP 140/77; PULSE 56; RESP 16; TEMP 36.4; O2SAT 99; BMI 23.3
[2024-02-09 21:58] VITALS: BP 140/77; PULSE 54; RESP 21; O2SAT 99
[2024-02-09] MEDS: sodium chloride 0.9% 1,000 ML 999 ML IV (22:23)
[2024-02-09 22:30] LABS: Bilirubin Urine Negative (Negative); Blood Urine Negative (Negative); Glucose Urine UA Negative (Normal); Ketones Urine Negative (Negative); Leukocyte Esterase Urine Negative (Negative); Nitrate Urine Negative (Negative); Protein Urine Negative (Negative); Urine Appearance Clear (CLEAR); Urine Color Yellow (Yellow)
[2024-02-09 22:35] LABS: Add Urine Microscopic? YES; Bacteria Urine None Seen /hpf; Hyaline Casts Urine 0.81 /lpf; RBC Urine 0-2 /hpf (0-2); Squamous Epithelial Cell Urine 0-5 /hpf (0-5); WBC Urine 0-5 /hpf (0-5)
[2024-02-09 23:15] LABS: Basophils % 0.3 %; Eosinophils # 0.2 10^3/uL (0.0-0.8); Eosinophils % 1.5 %; Hematocrit 37.1 % (37-53); Lymphocytes # 2.1 10^3/uL (0.8-4.8); Lymphocytes % 17.3 %; Mean Corpuscular HGB Conc 32.3 g/dL (30-55); Mean Corpuscular Hemoglobin 32.7 pg (27-33); Mean Corpuscular Volume 101.1 fl (82-101); Mean Platelet Volume 10.5 fL (7.4-10.4); Monocytes # 0.6 10^3/uL (0.2-0.9); Neutrophils # 9.02 10^3/uL (1.8-7.7); Neutrophils % 73.7 %; Nucleated Red Blood Cells % 0 %; Platelet Count 177 10^3/cmm (157-399); Red Blood Count 3.67 10^6/uL (3.85-5.65); Red Cell Distribution Width 12.6 % (12.1-15.1); White Blood Count 12.24 10^3/uL (3.29-11.43)
[2024-02-09 23:50] LABS: Alanine Aminotransferase 28 U/L (0-41); Albumin Level 3.5 g/dL (3.5-5.2); Alkaline Phosphatase 131 U/L (40-130); Anion Gap 11.1 (5-19); Aspartate Amino Transferase 16 U/L (0-40); Blood Urea Nitrogen 23 mg/dL (8-23); Calcium 8.1 mg/dL (8.5-10.5); Carbon Dioxide 27 mmol/L (22-29); Chloride 102 mmol/L (98-107); Creatine Phosphokinase 21 U/L (39-308); Creatinine Clr Calc Pharmacy 76.0042; Globulin 2.4 g/dL (1.3-4.6); Glucose 81 mg/dL (65-115); Osmolality Calculated 285 mOsm/kg (285-295); Potassium 4.1 mmol/L (3.5-5.1); Sodium 136 mmol/L (136-145); Total Bilirubin 0.3 mg/dL (0.15-1.2); Total Protein 5.9 g/dL (6.6-8.7)
[2024-02-10] MEDS: LORazepam 2 mg/mL INJ 1 mL 0.5 MG IVP (00:14)
[2024-02-10 00:17] VITALS: BP 161/87; PULSE 58; RESP 18; O2SAT 99
--- NOTE | 2024-02-10 01:08 | ED_ITS ---
HPI - Weakness 2 General: Chief complaint: Weakness Stated complaint: WEAKNESS Time Seen by Provider: 02/09/24 21:55 History of Present Illness: This patient is an 83-year-old white male who presents to the emergency department stating that he lost his appetite 6 weeks ago. He has not been sleeping well. He has been nauseous. No vomiting. States food just does not taste good. Has developed some generalized weakness. Patient has been seen for the symptoms for 5 times in the emergency department over the past 2 weeks. Daughter had him brought in. He does live with his daughter. Nurse spoke with daughter over the phone and daughter states that she is getting worn out. Looking through the chart it looks like patient has been worked up for placement. Also has history of anxiety. His about 6 years ago and he states he has been very anxious ever since then. He states the only thing that ever worked for him was Xanax. He states no one will prescribe it for him now. Associated symptoms: Reports nausea Review of Systems 2 General: Reports: 10 or more systems reviewed and unremarkable except in HPI and below Const: Reports: change in appetite GI: Reports: nausea Psych: Reports: anxiety PFSH ED 2 PFSH: Medical History Psychiatric care Depression Right inguinal hernia Hyperlipidemia Anxiety BPH (benign prostatic hyperplasia) Back pain with history of spinal surgery Surgical History Status post right inguinal hernia repair History of back surgery Status post left knee replacement H/O shoulder surgery bilateral rotator cuff repairs H/O circumcision H/O colonoscopy 3 yrs ago Family History Denies family history of Diabetes Anesthesia complication Bleeding disorder Cancer Social History Smoking and tobacco/nicotine status: current every day tobacco/nicotine user cigarettes Packs smoked per day: 1 [ Other cigarette details: STARTED SMOKING IN 1959] Quit status (tobacco/nicotine): not considering quitting Second hand smoke exposure: No Alcohol intake: current Alcohol intake frequency: few times a week Substance/Drug Use: never Household members: family Marital status: Single Current occupational status: retired Physical Exam 2 Const: COMMON NORMALS: no acute distress, patient oriented x3 and no limitations GENERAL APPEARANCE: cooperative and comfortable HENMT: COMMON NORMALS: normocephalic, atraumatic, Normal nasal mucous membranes and turbinates present, moist oral mucous membranes and oropharynx normal HEAD & SCALP: normal to inspection, normocephalic and atraumatic F PIA & SINUS: normal facial exam NOSE: Normal nasal mucous membranes and turbinates present Eye: COMMON NORMALS: Equal, round and reactive pupils present, EOMs intact bilaterally and conjunctivae normal GENERAL EYE: appearance normal, both eyes and all related structures CONJUNCTIVA: Yes conjunctivae normal PUPIL: Yes Equal, round and reactive pupils present Neck/C-Spine: COMMON NORMALS: supple and no JVD Chest: COMMONS NORMALS: normal inspection of the chest Resp: COMMON NORMALS: normal respiratory effort and clear to auscultation bilaterally AUSCULTATION: clear to auscultation bilaterally Cardio: COMMON NORMALS: no JVD, regular rate, regular rhythm, No gallops present (Cardio), No murmurs present (Cardio) and No rub (Cardio) RATE: r egular rate RHYTHM: regular rhythm GI: COMMON NORMALS: Normal to inspection, nondistended, normoactive bowel sounds present, Soft to palpation and non-tender AUSCULTATION: Yes normoactive bowel sounds PALPATION: Yes Soft to palpation : COMMON NORMALS: Yes no CVA tenderness BLADDER/KIDNEY EXAM: Yes no CVA tenderness Back/Pelvis: COMMON NORMALS: no CVA tenderness and thoracic and lumbar spine normal to inspection Extremity: COMMON NORMALS: normal to inspection Neuro: COMMON NORMALS: patient oriented x3 and CN's II-XII intact bilaterally Psych: COMMON NORMALS: mental status grossly normal, Normal thought process present and cooperative MOOD & AFFECT: Yes anxious THOUGHT PROCESS: Normal thought process present Skin: COMMON NORMALS: no rashes or lesions noted, turgor normal and no jaundice GENERAL SKIN EXAM: no rashes or lesions noted and turgor normal Course 2 Vital Signs: Vital signs: Vital Signs Temperature 97.5 F L 02/09/24 21:53 Pulse Rate 58 L 02/10/24 00:17 Respiratory Rate 18 02/10/24 00:17 Blood Pressure 161/87 02/10/24 00:17 Pulse Oximetry 99 02/10/24 00:17 Oxygen Delivery Me thod Room Air 02/10/24 00:17 MDM - Weakness Medical Decision Making CBC reveals white blood cell count of 12.2. CMP was normal. Total CK was 21. Urinalysis normal. Patient appears to have anxiety and also appears to be developing dementia. I did place him on a short course of Xanax. Recommended he follow-up with his primary care physician for ongoing management. He was discharged in stable condition with his daughter. Lab Data 02/09/24 23:11 02/09/24 23:11 Laboratory Results WBC 12.24 10^3/uL (3.29-11.43) H 02/09/24 23:11 RBC 3.67 10^6/uL (3.85-5.65) L 02/09/24 23:11 Hgb 12.00 g/dL (11.27-16.99) 02/09/24 23:11 Hct 37.1 % (37-53) 02/09/24 23:11 MCV 101.1 fl (82-101) H 02/09/24 23:11 MCH 32.7 pg (27-33) 02/09/24 23:11 MCHC 32.3 g/dL (30-55) 02/09/24 23:11 RDW 12.6 % (12.1-15.1) 02/09/24 23:11 Plt Count 177 10^3/cmm (157-399) 02/09/24 23:11 MPV 10.5 fL (7.4-10.4) H 02/09/24 23:11 Neut % (Auto) 73.7 % 02/09/24 23:11 Lymph % (Auto) 17.3 % 02/09/24 23:11 [place]flower % (Auto) 5.0 % 02/09/24 23:11 Eos % (Auto) 1.5 % 02/09/24 23:11 Baso % (Auto) 0.3 % 02/09/24 23:11 Neut # (Auto) 9.02 10^3/uL (1.8-7.7) H 02/09/24 23:11 Lymph # (Auto) 2.1 10^3/uL (0.8-4.8) 02/09/24 23:11 Sunflower # (Auto) 0.6 10^3/uL (0.2-0.9) 02/09/24 23:11 Eos # (Auto) 0.2 10^3/uL (0.0-0.8) 02/09/24 23:11 Baso # (Auto) 0.0 10^3/uL (0.0-0.1) 02/09/24 23:11 Nucleated RBC % (auto) 0 % 02/09/24 23:11 Nucleated RBCs # 0.0 /100WBC 02/09/24 23:11 Sodium 136 mmol/L (136-145) 02/09/24 23:11 Potassium 4.1 mmol/L (3.5-5.1) 02/09/24 23:11 Chloride 102 mmol/L (98-107) 02/09/24 23:11 Carbon Dioxide 27 mmol/L (22-29) 02/09/24 23:11 Anion Gap 11.1 (5-19) 02/09/24 23:11 BUN 23 mg/dL (8-23) 02/09/24 23:11 Creatinine 0.5 mg/dL (0.7-1.2) L 02/09/24 23:11 GFR Calculation Not Reportable 02/09/24 23:11 Glucose 81 mg/dL (65-115) 02/09/24 23:11 Calculated Osmolality 285 mOsm/kg (285-295) 02/09/24 23:11 Calcium 8.1 mg/dL (8.5-10.5) L 02/09/24 23:11 Total Bilirubin 0.3 mg/dL (0.15-1.2) 02/09/24 23:11 AST 16 U/L (0-40) 02/09/24 23:11 ALT 28 U/L (0-41) 02/09/24 23:11 Alkaline Phosphatase 131 U/L (40-130) H 02/09/24 23:11 Creatine Kinase 21 U/L (39-308) L 02/09/24 23:11 Total Protein 5.9 g/dL (6.6-8.7) L 02/09/24 23:11 Albumin 3.5 g/dL (3.5-5.2) 02/09/24 23:11 Globulin 2.4 g/dL (1.3-4.6) 02/09/24 23:11 Urine Color Yellow (Yellow) 02/09/24: Urine Appearance Clear (CLEAR) 02/09/24: Urine pH 6.0 (5-7) 02/09/24: Ur Specific [place] 1.020 (1.005-1.030) 02/09/24: Urine Protein Negative (Negative) 02/09/24: Urine Glucose (UA) Negative (Normal) 02/09/24: Urine Ketones Negative (Negative) 02/09/24: Urine Blood Negative (Negative) 02/09/24: Urine Nitrate Negative (Negative) 02/09/24: Urine Bilirubin Negative (Negative) 02/09/24: Urine Urobilinogen 1.0 mg/dL (Negative) 02/09/24 Ur Leukocyte Esterase Negative (Negative) 02/09/24: Urine RBC 0-2 /hpf (0-2) 02/09/24: Urine WBC 0-5 /hpf (0-5) 02/09/24: Ur Squamous Epith Cells 0-5 /hpf (0-5) 02/09/24: Amorphous Sediment Not Reportable 02/09/24: Urine Bacteria None seen /hpf (NONE) 02/09/24 Hyaline Casts 0.81 /lpf 02/09/24: No radiology studies performed this visit Discharge Plan Discharge Patient Disposition: Home Clinical Impression: Anxiety Condition: Stable Prescriptions: New alprazolam [Xanax] 0.25 mg tablet 0.25 mg PO TID PRN (Reason: anxiety) Qty: 30 0RF No Action albuterol sulfate [Ventolin HFA] 90 mcg/actuation HFA aerosol inhaler 2 puff inhalation Q4H PRN (Reason: shortness of breath or wheezing) Qty: 8.5 1RF pregabalin 50 mg capsule 50 mg PO TID Qty: 90 2RF Rx Instructions: Start one tab at bedtime x 1 wk, then BID x 1 wk, then may take TID. aspirin 81 mg tablet,delayed release (DR/EC) 81 mg PO QAM trazodone 50 mg tablet 100 mg PO .HS PRN (Reason: insomnia) Qty: 60 2RF hydroxyzine HCl 25 mg tablet 25 mg PO Q6H PRN (Reason: anxiety) Qty: 60 1RF alprazolam 0.5 mg tablet extended release 24 hr 0.5 mg PO BEDTIME doxycycline hyclate 100 mg capsule 100 mg PO BID 7 Days Qty: 14 0RF hydrocodone-acetaminophen 5-325 mg tablet 1 tab PO Q8H PRN (Reason: pain) Qty: 14 0RF Rx Instructions: Take 1/2 to 1 tab every 8 hours as needed for pain clopidogrel 75 mg tablet 75 mg PO QPM atorvastatin 40 mg tablet 40 mg PO DAILY tamsulosin 0.4 mg capsule 0.4 mg PO DAILY Qty: 30 0RF Discharge Orders: Discharge ED (Routine); Ordered 02/10/24 Ordered By: Benjamin Marr Referrals: George Mallory DO [Primary Care Provider] - Patient Instructions: Anxiety (ED) Coding Level of Care Code ED Assembly Loader for Chg Fwd Related Data Home Medications Medication Instructions Recorded Confirmed aspirin 81 mg tablet,delayed 81 mg PO QAM 12/04/21 02/07/24 release clopidogrel 75 mg tablet 75 mg PO QPM 08/19/23 02/07/24 atorvastatin 40 mg tablet 40 mg PO DAILY 01/24/24 02/07/24 alprazolam 0.5 mg tablet,extended 0.5 mg PO BEDTIME 01/30/24 02/07/24 release 24 hr Previous Rx's Medication Instructions Recorded albuterol sulfate 90 mcg/actuation 2 puff inhalation Q4H PRN 08/23/23 aerosol inhaler (Ventolin HFA) shortness of breath or wheezing #8.5 grams trazodone 50 mg tablet 100 mg (2 x 50 mg) PO .HS PRN 12/04/23 insomnia #60 tabs pregabalin 50 mg capsule 50 mg PO TID #90 caps 01/07/24 tamsulosin 0.4 mg capsule 0.4 mg PO DAILY #30 caps 01/24/24 hydroxyzine HCl 25 mg tablet 25 mg PO Q6H PRN anxiety #60 tabs 01/31/24 doxycycline hyclate 100 mg capsule 100 mg PO BID 7 days #14 caps 02/03/24 hydrocodone 5 mg-acetaminophen 325 1 tab PO Q8H PRN pain #14 tabs 02/03/24 mg tablet alprazolam 0.25 mg tablet (Xanax) 0.25 mg PO TID PRN anxiety #30 tabs 02/10/24 Allergies Allergy/AdvReac Type Severity Reaction Status Date / Time No Known Allergies Allergy Verified 02/07/24 09:44
[2024-02-10 01:46] VITALS: BP 137/56; PULSE 83; RESP 18; O2SAT 98
[2024-02-10 02:01] VITALS: BP 137/56; PULSE 61; RESP 18; O2SAT 98
== END 2024-02-10 02:07 | disposition home or self-care (01) ==
PROVIDERS: Emergency Provider Emergency Medicine; PCP Family Medicine
DX: F41.9 Anxiety disorder, unspecified (principal)
CPT/HCPCS: 80053; 81001; 82550; 85025; 96361; 96374; 99284; J2060; J7030

== ENCOUNTER 2024-04-18 13:51 | Emergency (ER) | payer MEDICARE, OTHER, SELFPAY ==
[2024-04-18 13:52] VITALS: BP 120/61; PULSE 57; RESP 16; TEMP 36.7; O2SAT 98; BMI 23.7
--- NOTE | 2024-04-18 13:56 | XRR_ITS ---
PROCEDURE INFORMATION: Exam: XR Chest Exam date and time: 04/18/2024 2:05 PM Age: 83 years old Clinical indication: Patient HX: Weakness; Anxiety TECHNIQUE: Imaging protocol: Radiologic exam of the chest. Views: 1 view. COMPARISON: CR XR chest 1V portable [id number] 02/03/2024 7:03 PM FINDINGS: Lungs: Unremarkable. No consolidation. Pleural spaces: Unremarkable. No pleural effusion. No pneumothorax. Heart/Mediastinum: Unremarkable. No cardiomegaly. Bones/joints: Rotator cuff anchor noted in the left humeral head. Visualized osseous structures are intact. XR/XR chest 1V portable [id number] IMPRESSION: No acute findings.
--- NOTE | 2024-04-18 13:57 | ECG_ITS ---
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 Measurements Intervals [place] Rate: 65 P: 14 NV: 169 QRS: -15 QRSD: 81 T: 6 QT: 407 QTc: 423 Interpretive Statements SINUS RHYTHM MODERATE VOLTAGE CRITERIA FOR LVH, CONSIDER NORMAL VARIANT [MEETS CRITERIA IN ONE OF: R(aVL), S(V1), R(V5), R(V5/V6)+S(V1)] Compared to ECG 02/03/2024 21:00:54 Sinus bradycardia no longer present Electronically Signed On 04-19-2024 20:07:05 PHARMACY BILLING ADJUDICATOR by Magnus Connors M.D. [id number]
[2024-04-18] MEDS: LORazepam 2 mg/mL INJ 1 mL 1 MG IVP (14:05)
--- NOTE | 2024-04-18 14:08 | ED_ITS ---
HPI - Anxiety 2 General: Chief Complaint: Anxiety Stated Complaint: weakness; anxiety Time Seen by Provider: 04/18/24 13:52 Source: patient and EMS Mode of arrival: EMS Limitations: no limitations History of Present Illness: 83-year-old male states that he has had chronic anxiety states has had anxiety issues for 6 years. He states that over the last month or 2 has had some worsening anxiety states has had some dyspnea as well. He states he takes Xanax but does not feel like he gets enough he states he has been taking Suboxone and kratom as well. He speak in full senses here no shortness of breath here he denies any chest pain or fever. Related Data Home Medications Medication Instructions Recorded Confirmed aspirin 81 mg tablet,delayed 81 mg PO QAM 12/04/21 04/18/24 release atorvastatin 40 mg tablet 40 mg PO DAILY 01/24/24 04/18/24 clopidogrel 75 mg tablet 75 mg PO DAILY 04/18/24 04/18/24 prazosin 2 mg capsule 2 mg PO BID 04/18/24 04/18/24 vitamins A,C,A-tqpa-twaerc 4,296 1 cap PO DAILY 04/18/24 04/18/24 mcg-226 mg-90 mg capsule (PreserVision AREDS) Previous Rx's Medication Instructions Recorded albuterol sulfate 90 mcg/actuation 2 puff inhalation Q4H PRN 08/23/23 aerosol inhaler (Ventolin HFA) shortness of breath or wheezing #8.5 grams trazodone 50 mg tablet 100 mg (2 x 50 mg) PO .HS PRN 12/04/23 insomnia #60 tabs hydrocodone 5 mg-acetaminophen 325 1 tab PO Q8H PRN pain #14 tabs 02/03/24 mg tablet cane #1 ea 02/13/24 alprazolam 1 mg tablet,extended 1 mg PO TID #90 tabs 02/17/24 release 24 hr Allergies Allergy/AdvReac Type Severity Reaction Status Date / Time No Known Allergies Allergy Verified 04/18/24 14:04 [facility] ED 2 PFSH: Medical History Psychiatric care Depression Right inguinal hernia Hyperlipidemia Anxiety BPH (benign prostatic hyperplasia) Back pain with history of spinal surgery Surgical History Status post right inguinal hernia repair History of back surgery Status post left knee replacement H/O shoulder surgery bilateral rotator cuff repairs H/O circumcision H/O colonoscopy 3 yrs ago Family History Denies family history of Diabetes Anesthesia complication Bleeding disorder Cancer Social History Smoking and tobacco/nicotine status: never used tobacco/nicotine Quit status (tobacco/nicotine): not considering quitting Second hand smoke exposure: No Alcohol intake: current Alcohol intake frequency: few times a week Substance/Drug Use: never Household members: family Marital status: Single Current occupational status: retired Course 2 Vital Signs: Vital signs: Vital Signs Temperature 98.1 F 04/18/24 13:52 Pulse Rate 57 L 04/18/24 13:52 Respiratory Rate 16 04/18/24 13:52 Blood Pressure 120/61 04/18/24 13:52 Pulse Oximetry 98 04/18/24 13:52 Oxygen Delivery Me thod Room Air 04/18/24 13:52 MDM - Anxiety Medical Decision Making Patient presents here with anxiety along with some dyspnea has improved here after Ativan he has no signs of PE EKG x-ray blood works normal he stable for discharge she is follow-up with PCP return if worsening. Medical Records I reviewed the patient's medical records. Lab Data I reviewed the patient's lab results. 04/18/24 14:09 04/18/24 14:09 Laboratory Results WBC 7.98 10^3/uL (3.29-11.43) 04/18/24 14:09 RBC 3.87 10^6/uL (3.85-5.65) 04/18/24 14:09 Hgb 12.30 g/dL (11.27-16.99) 04/18/24 14:09 Hct 38.7 % (37-53) 04/18/24 14:09 MCV 100.0 fl (82-101) 04/18/24 14:09 MCH 31.8 pg (27-33) 04/18/24 14:09 MCHC 31.8 g/dL (30-55) 04/18/24 14:09 RDW 12.8 % (12.1-15.1) 04/18/24 14:09 Plt Count 322 10^3/cmm (157-399) 04/18/24 14:09 MPV 10.2 fL (7.4-10.4) 04/18/24 14:09 Neut % (Auto) 71.8 % 04/18/24 14:09 Lymph % (Auto) 17.3 % 04/18/24 14:09 Mcdonald % (Auto) 7.9 % 04/18/24 14:09 Eos % (Auto) 2.0 % 04/18/24 14:09 Baso % (Auto) 0.6 % 04/18/24 14:09 Neut # (Auto) 5.73 10^3/uL (1.8-7.7) 04/18/24 14:09 Lymph # (Auto) 1.4 10^3/uL (0.8-4.8) 04/18/24 14:09 Mcdonald # (Auto) 0.6 10^3/uL (0.2-0.9) 04/18/24 14:09 Eos # (Auto) 0.2 10^3/uL (0.0-0.8) 04/18/24 14:09 Baso # (Auto) 0.1 10^3/uL (0.0-0.1) 04/18/24 14:09 Nucleated RBC % (auto) 0 % 04/18/24 14:09 Nucleated RBCs # 0.0 /100WBC 04/18/24 14:09 Sodium 137 mmol/L (136-145) 04/18/24 14:09 Potassium 4.0 mmol/L (3.5-5.1) 04/18/24 14:09 Chloride 99 mmol/L (98-107) 04/18/24 14:09 Carbon Dioxide 27 mmol/L (22-29) 04/18/24 14:09 Anion Gap 15.0 (5-19) 04/18/24 14:09 BUN 8 mg/dL (8-23) 04/18/24 14:09 Creatinine 0.7 mg/dL (0.7-1.2) 04/18/24 14:09 GFR Calculation Not Reportable 04/18/24 14:09 Glucose 113 mg/dL (65-115) 04/18/24 14:09 Calculated Osmolality 283 mOsm/kg (285-295) L 04/18/24 14:09 Calcium 9.1 mg/dL (8.5-10.5) 04/18/24 14:09 Total Bilirubin 0.2 mg/dL (0.15-1.2) 04/18/24 14:09 AST 12 U/L (0-40) 04/18/24 14:09 ALT 9 U/L (0-41) 04/18/24 14:09 Alkaline Phosphatase 134 U/L (40-130) H 04/18/24 14:09 Total Protein 6.4 g/dL (6.6-8.7) L 04/18/24 14:09 Albumin 3.6 g/dL (3.5-5.2) 04/18/24 14:09 Globulin 2.8 g/dL (1.3-4.6) 04/18/24 14:09 XR interpretation done by ED provider, pending radiology final review ED provider radiology interpretation(s): cxr no acute abnormality EKG Data EKG 1: I personally reviewed and interpreted this EKG as follows: EKG interpretation date: 04/18/24 EKG interpretation time: 15:08 Interpretation: nsr hr [address] elevationj qrs 81 qtc 418 Discharge Plan Discharge Patient Disposition: Home Clinical Impression: Acute anxiety, Dyspnea Condition: Stable Prescriptions: No Action albuterol sulfate [Ventolin HFA] 90 mcg/actuation HFA aerosol inhaler 2 puff inhalation Q4H PRN (Reason: shortness of breath or wheezing) Qty: 8.5 1RF (DME) cane Device See Rx Instructions .Route Qty: 1 0RF Rx Instructions: As directed aspirin 81 mg tablet,delayed release (DR/EC) 81 mg PO QAM trazodone 50 mg tablet 100 mg PO .HS PRN (Reason: insomnia) Qty: 60 2RF alprazolam 1 mg tablet extended release 24 hr 1 mg PO TID Qty: 90 2RF hydrocodone-acetaminophen 5-325 mg tablet 1 tab PO Q8H PRN (Reason: pain) Qty: 14 0RF Rx Instructions: Take 1/2 to 1 tab every 8 hours as needed for pain atorvastatin 40 mg tablet 40 mg PO DAILY PreserVision AREDS 4,296 mcg-226 mg-90 mg Capsule 1 cap PO DAILY clopidogrel 75 mg tablet 75 mg PO DAILY prazosin 2 mg capsule 2 mg PO BID Discharge Orders: Discharge ED (Routine); Ordered 04/18/24 Ordered By: Caitlin Pittman Referrals: George Mallory DO [Primary Care Provider] - 4-7 days Discharge Diet: Advance as tolerated Discharge Activity: Resume usual activity Patient Instructions: Dyspnea (ED), Anxiety (ED) Coding Level of Care Code ED Hunting And Fishing Guide for Tello Garvin
[2024-04-18 14:15] LABS: Basophils # 0.1 10^3/uL (0.0-0.1); Basophils % 0.6 %; Eosinophils # 0.2 10^3/uL (0.0-0.8); Hematocrit 38.7 % (37-53); Lymphocytes # 1.4 10^3/uL (0.8-4.8); Lymphocytes % 17.3 %; Mean Corpuscular HGB Conc 31.8 g/dL (30-55); Mean Corpuscular Hemoglobin 31.8 pg (27-33); Mean Platelet Volume 10.2 fL (7.4-10.4); Monocytes # 0.6 10^3/uL (0.2-0.9); Monocytes % 7.9 %; Neutrophils # 5.73 10^3/uL (1.8-7.7); Neutrophils % 71.8 %; Nucleated Red Blood Cells % 0 %; Platelet Count 322 10^3/cmm (157-399); Red Blood Count 3.87 10^6/uL (3.85-5.65); Red Cell Distribution Width 12.8 % (12.1-15.1); White Blood Count 7.98 10^3/uL (3.29-11.43)
[2024-04-18 14:30] VITALS: BP 126/54; PULSE 54; O2SAT 93
[2024-04-18 14:37] LABS: Alanine Aminotransferase 9 U/L (0-41); Albumin Level 3.6 g/dL (3.5-5.2); Alkaline Phosphatase 134 U/L (40-130); Aspartate Amino Transferase 12 U/L (0-40); Blood Urea Nitrogen 8 mg/dL (8-23); Calcium 9.1 mg/dL (8.5-10.5); Carbon Dioxide 27 mmol/L (22-29); Chloride 99 mmol/L (98-107); Creatinine Clr Calc Pharmacy 76.5523; Globulin 2.8 g/dL (1.3-4.6); Glucose 113 mg/dL (65-115); Osmolality Calculated 283 mOsm/kg (285-295); Sodium 137 mmol/L (136-145); Total Bilirubin 0.2 mg/dL (0.15-1.2); Total Protein 6.4 g/dL (6.6-8.7)
[2024-04-18 14:50] VITALS: BP 117/53; PULSE 60
[2024-04-18 15:12] VITALS: BP 134/67; PULSE 60; O2SAT 98
--- NOTE | 2024-04-18 15:14 | PC.NURSE ---
pt ripped IV out, states ready to go home. nurse assessed IV site, catheter appears intact. wrapped site with coban
== END 2024-04-18 16:20 | disposition home or self-care (01) ==
PROVIDERS: Emergency Provider Emergency Medicine; PCP Family Medicine
DX: F41.8 Other specified anxiety disorders (principal); R06.00 Dyspnea, unspecified; Z79.82 Long term (current) use of aspirin; Z79.02 Long term (current) use of antithrombotics/antiplatelets; E78.5 Hyperlipidemia, unspecified
CPT/HCPCS: 71045; 80053; 85025; 93005; 96374; 99285; J2060

== ENCOUNTER 2024-04-26 11:57 | Emergency (ER) | payer MEDICARE, OTHER, SELFPAY ==
[2024-04-26 11:58] VITALS: BP 114/77; PULSE 58; RESP 17; TEMP 37.1; O2SAT 99; BMI 23.7
--- NOTE | 2024-04-26 12:02 | XRR_ITS ---
PROCEDURE INFORMATION: Exam: XR Chest Exam date and time: 04/26/2024 12:06 PM Age: 83 years old Clinical indication: Shortness of breath; Additional info: SOB TECHNIQUE: Imaging protocol: Radiologic exam of the chest. Views: 1 view. COMPARISON: CR (CHEST, ) 04/18/2024 2:05 PM FINDINGS: Lungs: Unremarkable. No consolidation. Pleural spaces: Unremarkable. No pleural effusion. No pneumothorax. Heart/Mediastinum: Unremarkable. No cardiomegaly. Bones/joints: Posterior fusion lumbar spine, incompletely imaged. XR/XR chest 1V portable [id number] IMPRESSION: No acute findings.
--- NOTE | 2024-04-26 12:02 | ECG_ITS ---
[facility] Date: 2024-04-26 Pat Name: Jonnathan Tapia Department: Room: Gender: Male Physician Surgeon: : 1940 Requested By: Lauren De Leon Order Number: [id number] Nancy MD: Faviola Nick M.D. Measurements Intervals [place] Rate: 56 P: 34 [place]: 180 QRS: -32 QRSD: 89 T: 24 QT: 434 QTc: 422 Interpretive Statements SINUS BRADYCARDIA LEFT AXIS DEVIATION [QRS AXIS < -30] Compared to ECG 04/18/2024 15:08:12 Left-axis deviation now present Sinus rhythm no longer present Electronically Signed On 04-26-2024 13:29:57 [employer] by Faviola Nick M.D. [email or web address]
--- NOTE | 2024-04-26 12:03 | ED_ITS ---
HPI - SOB/Dyspnea 2 General: Chief Complaint: Shortness of Breath/Dyspnea Stated Complaint: SOB Time Seen by Provider: 04/26/24 12:02 History of Present Illness: HPI Narrative: 83-year-old man with a history ofPsychia tric issues, anxiety, depression, hyperlipidemia who presents emergency room with shortness of breath and severe anxiety. He was here about a week or so ago for this. He says that the anxiety shot he got at the time help. Family states they are going to try to get him in with a psychiatrist. He also has follow-up with his primary doctor. No chest pain. No cough. No fever. No lower extremity swelling. No oxygen requirements. No tachycardia. Related Data Home Medications Medication Instructions Recorded Confirmed atorvastatin 40 mg tablet 40 mg PO QPM 01/24/24 04/26/24 clopidogrel 75 mg tablet 75 mg PO DAILY 04/18/24 04/26/24 prazosin 2 mg capsule 2 mg PO BID 04/18/24 04/26/24 vitamins A,C,S-bldo-ytwigx 4,296 1 cap PO DAILY 04/18/24 04/26/24 mcg-226 mg-90 mg capsule (PreserVision AREDS) budesonide 160 mcg-glycopyr 9 2 inh inhalation BID 04/26/24 04/26/24 mcg-formot 4.8 mcg/actuation HFA inhaler (Breztri Aerosphere) paroxetine HCl 40 mg tablet 40 mg PO BID 04/26/24 04/26/24 propranolol 60 mg tablet 60 mg PO DAILY 04/26/24 04/26/24 trazodone 50 mg tablet 100 mg PO BEDTIME PRN insomnia 04/26/24 04/26/24 Previous Rx's Medication Instructions Recorded albuterol sulfate 90 mcg/actuation 2 puff inhalation Q4H PRN 08/23/23 aerosol inhaler (Ventolin HFA) shortness of breath or wheezing #8.5 grams cane #1 ea 02/13/24 alprazolam 1 mg tablet,extended 1 mg PO TID #90 tabs 02/17/24 release 24 hr hydroxyzine HCl 25 mg tablet 25 mg PO BID PRN anxiety #30 tabs 04/26/24 Allergies Allergy/AdvReac Type Severity Reaction Status Date / Time No Known Allergies Allergy Verified 04/26/24 12:09 Review of Systems 2 Narrative: Constitutional symptoms: Negative except as documented in HPI. Skin symptoms: Negative except as documented in HPI. Eye symptoms: Negative except as documented in HPI. ENMT symptoms: Negative except as documented in HPI. Respiratory symptoms: Negative except as documented in HPI. Cardiovascular symptoms: Negative except as documented in HPI. Gastrointestinal symptoms: Negative except as documented in HPI. Genitourinary symptoms: Negative except as documented in HPI. Musculoskeletal symptoms: Negative except as documented in HPI. Neurologic symptoms: Negative except as documented in HPI. Psychiatric symptoms: Negative except as documented in HPI. Endocrine symptoms: Negative except as documented in HPI. PFSH ED 2 PFSH: Medical History Psychiatric care Depression Right inguinal hernia Hyperlipidemia Anxiety BPH (benign prostatic hyperplasia) Back pain with history of spinal surgery Surgical History Status post right inguinal hernia repair History of back surgery Status post left knee replacement H/O shoulder surgery bilateral rotator cuff repairs H/O circumcision H/O colonoscopy 3 yrs ago Family History Denies family history of Diabetes Anesthesia complication Bleeding disorder Cancer Social History Smoking and tobacco/nicotine status: never used tobacco/nicotine Quit status (tobacco/nicotine): not considering quitting Second hand smoke exposure: No Alcohol intake: current Alcohol intake frequency: few times a week Substance/Drug Use: never Household members: family Marital status: Single Current occupational status: retired Physical Exam 2 Narrative: EXAM NARRATIVE: General: Alert, no acute distress. Skin: Warm, dry. Head: Normocephalic, atraumatic. Neck: Supple, trachea midline. Eye: Extraocular movements are intact. Ears, nose, mouth and throat: mucosa moist. Cardiovascular: Regular, Normal peripheral perfusion. Respiratory: Lungs are clear to auscultation, respirations are non-labored, breath sounds are equal, Symmetrical chest wall expansion. Gastrointestinal: Soft, Nontender, Non distended Musculoskeletal: Normal ROM, no deformity. Neurological: Alert and oriented, No focal neurological deficit observed. Psychiatric: Cooperative, patient is quite anxious and tachypneic. Course 2 Vital Signs: Vital signs: Vital Signs Temperature 98.8 F 04/26/24 11:58 Pulse Rate 58 L 04/26/24 11:58 Respiratory Rate 17 04/26/24 11:58 Blood Pressure 114/77 04/26/24 11:58 Pulse Oximetry 99 04/26/24 11:58 Oxygen Delivery Me thod Room Air 04/26/24 11:58 MDM - SOB/Dyspnea Medical Decision Making Differential diagnosis for patient with shortness of breath includes but is not limited to and based on the above HPI, review of systems and physical exam: Pneumonia. Bronchitis. Asthma or COPD with acute exacerbation. Acute coronary syndrome / MT. Pulmonary embolism. Anxiety. Congestive heart failure. Viral infections including influenza and Covid-19. Atrial fibrillation. Anxiety. Pleural effusion. Pneumothorax. Orders placed to evaluate differential diagnosis based on the above differential, HPI and physical exam EKG: Time 1202. Rate 56. Sinus bradycardia. No ST-T changes, no ectopy, normal NH & QRS intervals, This was reviewed and interpreted by myself the ER physician at 1205 AB.5 with an O2 sat of 97% on room air. Patient does have some tachypnea and hypocapnia associated with his anxiety Chest x-ray: No acute process. No infiltrate. No pneumothorax. This was reviewed and interpreted by myself the emergency room physician. I also reviewed the radiology report. Lab Review: Laboratory results were reviewed and interpreted by myself the emergency room physician. No leukocytosis. No anemia. No renal failure. Initial troponin is 21. He is having no chest pain or cardiac symptoms and no ischemic changes on his EKG. Was going to repeat a 2-hour but the patient is insistent he leaves. He feels better after having received anxiety medications. I reviewed the patient's medical record. Reexamination: Patient remained stable. No increased work of breathing. No altered mental status. No focal motor deficits. Patient is much less anxious other than he is really wanting to leave. The weather is bad outside. Assessment and plan: Anxiety Shortness of breath ? IV Ativan in the emergency room. Discussed that I cannot write chronic narcotics but I did give him some hydroxyzine for now and he will follow with a psychiatrist later this month. - Discharged home - Discussed plan with patient. Answered any questions. - Evaluation and treatment of this problem were appropriate in the emergency setting. Lab Data 04/26/24 12:15 04/26/24 12:15 Labs/Radiology: Radiology Impressions Chest X-Ray 04/26/24 12:02 IMPRESSION: No acute findings. Laboratory Results WBC 8.98 10^3/uL (3.29-11.43) 04/26/24 12:15 RBC 3.88 10^6/uL (3.85-5.65) 04/26/24 12:15 Hgb 12.20 g/dL (11.27-16.99) 04/26/24 12:15 Hct 38.1 % (37-53) 04/26/24 12:15 MCV 98.2 fl (82-101) 04/26/24 12:15 MCH 31.4 pg (27-33) 04/26/24 12:15 MCHC 32.0 g/dL (30-55) 04/26/24 12:15 RDW 13.2 % (12.1-15.1) 04/26/24 12:15 Plt Count 243 10^3/cmm (157-399) 04/26/24 12:15 MPV 10.8 fL (7.4-10.4) H 04/26/24 12:15 Neut % (Auto) 79.5 % 04/26/24 12:15 Lymph % (Auto) 12.8 % 04/26/24 12:15 [place] % (Auto) 5.6 % 04/26/24 12:15 Eos % (Auto) 0.9 % 04/26/24 12:15 Baso % (Auto) 0.6 % 04/26/24 12:15 Neut # (Auto) 7.15 10^3/uL (1.8-7.7) 04/26/24 12:15 Lymph # (Auto) 1.2 10^3/uL (0.8-4.8) 04/26/24 12:15 [place] # (Auto) 0.5 10^3/uL (0.2-0.9) 04/26/24 12:15 Eos # (Auto) 0.1 10^3/uL (0.0-0.8) 04/26/24 12:15 Baso # (Auto) 0.1 10^3/uL (0.0-0.1) 04/26/24 12:15 Nucleated RBC % (auto) 0 % 04/26/24 12:15 Nucleated RBCs # 0.0 /100WBC 04/26/24 12:15 Specimen Type Arterial 04/26/24 12:09 Sample Site Radial, right 04/26/24 12:09 ABG pH 7.50 (7.35-7.45) H 04/26/24 12:09 ABG pCO2 31.5 mmHg (35-45) L 04/26/24 12:09 ABG pO2 75.8 mmHg (80.0-100.0) L 04/26/24 12:09 ABG PO2/FiO2 Ratio 360 04/26/24 12:09 ABG HCO3 24.5 mmol/L (22-26) 04/26/24 12:09 ABG O2 Saturation 96.8 04/26/24 12:09 ABG Base Excess 1.9 mmol/L (-2.0-2.0) 04/26/24 12:09 Lee Test Pos 04/26/24 12:09 A-a O2 Gradient 4.2 mmHg (5-10) L 04/26/24 12:09 Hematocrit 38.9 % (42-52) L 04/26/24 12:09 Hgb O2 Saturation 92.8 % (95-100) L 04/26/24 12:09 Carboxyhemoglobin 3.8 %THgb (0.4-20.1) 04/26/24 12:09 Methemoglobin 0.4 % (0.4-1.5) 04/26/24 12:09 Total Hemoglobin 12.7 g/dL (14-18) L 04/26/24 12:09 Sodium 140.0 mmol/L (131-143) 04/26/24 12:09 Potassium 3.9 mmol/L (3.5-5.0) 04/26/24 12:09 Glucose 169.0 mg/dL (70-115) H 04/26/24 12:09 Ionized Calcium 1.2 mmol/L (1.1-1.4) 04/26/24 12:09 O2 Delivery Device Room air 04/26/24 12:09 FiO2 21.0 % 04/26/24 12:09 Shelf Filler ID [place] 04/26/24 12:09 Sodium 141 mmol/L (136-145) 04/26/24 12:15 Potassium 4.3 mmol/L (3.5-5.1) 04/26/24 12:15 Chloride 95 mmol/L (98-107) L 04/26/24 12:15 Carbon Dioxide 27 mmol/L (22-29) 04/26/24 12:15 Anion Gap 23.3 (5-19) H 04/26/24 12:15 BUN 8 mg/dL (8-23) 04/26/24 12:15 Creatinine 0.8 mg/dL (0.7-1.2) 04/26/24 12:15 GFR Calculation Not Reportable 04/26/24 12:15 Glucose 150 mg/dL (65-115) H 04/26/24 12:15 Calculated Osmolality 293 mOsm/kg (285-295) 04/26/24 12:15 Lactic Acid 1.3 mmol/L (0.5-2.2) 04/26/24 12:15 Calcium 9.3 mg/dL (8.5-10.5) 04/26/24 12:15 Total Bilirubin 0.3 mg/dL (0.15-1.2) 04/26/24 12:15 AST 11 U/L (0-40) 04/26/24 12:15 ALT 9 U/L (0-41) 04/26/24 12:15 Alkaline Phosphatase 130 U/L (40-130) 04/26/24 12:15 Troponin T Baseline 27 ng/L (0-15) H 04/26/24 12:15 NT-Pro-B Natriuret Pep 51 pg/mL (0-450) 04/26/24 12:15 Total Protein 6.1 g/dL (6.6-8.7) L 04/26/24 12:15 Albumin 3.9 g/dL (3.5-5.2) 04/26/24 12:15 Globulin 2.2 g/dL (1.3-4.6) 04/26/24 12:15 All radiology interpretation(s) finalized by discharge Discharge Plan Discharge Patient Disposition: Home Clinical Impression: Anxiety, Shortness of breath Condition: Stable Prescriptions: New hydroxyzine HCl 25 mg tablet 25 mg PO BID PRN (Reason: anxiety) Qty: 30 0RF No Action albuterol sulfate [Ventolin HFA] 90 mcg/actuation HFA aerosol inhaler 2 puff inhalation Q4H PRN (Reason: shortness of breath or wheezing) Qty: 8.5 1RF (DME) cane Device See Rx Instructions .Route Qty: 1 0RF Rx Instructions: As directed alprazolam 1 mg tablet extended release 24 hr 1 mg PO TID Qty: 90 2RF propranolol 60 mg tablet 60 mg PO DAILY paroxetine HCl 40 mg tablet 40 mg PO BID Breztri Aerosphere 160-9-4.8 mcg/actuation HFA aerosol inhaler 2 inh INHALATION BID trazodone 50 mg tablet 100 mg PO BEDTIME PRN (Reason: insomnia) atorvastatin 40 mg tablet 40 mg PO QPM PreserVision AREDS 4,296 mcg-226 mg-90 mg Capsule 1 cap PO DAILY clopidogrel 75 mg tablet 75 mg PO DAILY prazosin 2 mg capsule 2 mg PO BID Discharge Orders: Discharge ED (Routine); Ordered 04/26/24 Ordered By: Lauren Hein Referrals: George Mallory, [Primary Care Provider] - Discharge Diet: Usual diet Discharge Activity: Increase activity as tolerated Patient Instructions: Anxiety (ED), Opioid Safety, Pain Management Activity Restrictions/Additional Instructions: Thank you for choosing [facility] for your healthcare needs today. Please realize this is an emergency room and that we are providing you with a medical screening exam and this may not be complete and all inclusive of all the testing and or work up that you may need to determine your ailment or severity of your illness. You have been screened and evaluated and felt safe for discharge. Health conditions do change or evolve sometimes and as such it is important that you follow up with your Primary Doctor to be re checked, 3-5 days is a general good time frame for follow up. You are always welcome to return to the ED for re assessment if your symptoms are worsening or you have new concerns Coding Level of Care Code ED Client Experience Specialist for Tello Garvin
[2024-04-26 12:09] VITALS: PULSE 56; RESP 20; O2SAT 99
[2024-04-26 12:20] LABS: ABG PCO2 31.5 mmHg (35-45); Alveolar-Arterial Oxygen Gradi 4.2 mmHg (5-10); Arterial Blood Gas Hematocrit 38.9 % (42-52); Base Excess ABG 1.9 mmol/L (-2.0-2.0); Blood Gas Allen Test Pos; Blood Gas Operator Identificat WALCI; Blood Gas Sample Site Radial, right; Blood Gas Sample Type Arterial; Carboxyhemoglobin 3.8 %THgb (0.4-20.1); HCO3 ABG 24.5 mmol/L (22-26); HGB O2 Sat 92.8 % (95-100); Ionized Calcium Level - ABG 1.2 mmol/L (1.1-1.4); Methemoglobin 0.4 % (0.4-1.5); Oxygen Device ROOM AIR; Oxygen Saturation ABG 96.8; PO2 ABG 75.8 mmHg (80.0-100.0); PO2 FiO2 Ratio Arterial Blood 360; Potassium Level - ABG 3.9 mmol/L (3.5-5.0); Total Hemoglobin 12.7 g/dL (14-18)
[2024-04-26 12:32] LABS: Basophils # 0.1 10^3/uL (0.0-0.1); Basophils % 0.6 %; Eosinophils # 0.1 10^3/uL (0.0-0.8); Eosinophils % 0.9 %; Hematocrit 38.1 % (37-53); Lymphocytes # 1.2 10^3/uL (0.8-4.8); Lymphocytes % 12.8 %; Mean Corpuscular Hemoglobin 31.4 pg (27-33); Mean Corpuscular Volume 98.2 fl (82-101); Mean Platelet Volume 10.8 fL (7.4-10.4); Monocytes # 0.5 10^3/uL (0.2-0.9); Monocytes % 5.6 %; Neutrophils # 7.15 10^3/uL (1.8-7.7); Neutrophils % 79.5 %; Nucleated Red Blood Cells % 0 %; Platelet Count 243 10^3/cmm (157-399); Red Blood Count 3.88 10^6/uL (3.85-5.65); Red Cell Distribution Width 13.2 % (12.1-15.1); White Blood Count 8.98 10^3/uL (3.29-11.43)
[2024-04-26 12:39] VITALS: PULSE 54; RESP 19; O2SAT 97
[2024-04-26 12:43] LABS: Lactic Sepsis W/Reflex 1.3 mmol/L (0.5-2.2)
--- NOTE | 2024-04-26 12:44 | PC.PHAR ---
Pt states is out of Paroxetine 40mg and would like to continue taking.
[2024-04-26 12:45] LABS: Troponin(5th) Baseline 27 ng/L (0-15)
[2024-04-26 12:54] LABS: Alanine Aminotransferase 9 U/L (0-41); Albumin Level 3.9 g/dL (3.5-5.2); Alkaline Phosphatase 130 U/L (40-130); Anion Gap 23.3 (5-19); Aspartate Amino Transferase 11 U/L (0-40); Blood Urea Nitrogen 8 mg/dL (8-23); Calcium 9.3 mg/dL (8.5-10.5); Carbon Dioxide 27 mmol/L (22-29); Chloride 95 mmol/L (98-107); Creatinine Clr Calc Pharmacy 76.5523; Globulin 2.2 g/dL (1.3-4.6); Glucose 150 mg/dL (65-115); NT Pro B Type Natriuretic Pept 51 pg/mL (0-450); Osmolality Calculated 293 mOsm/kg (285-295); Potassium 4.3 mmol/L (3.5-5.1); Sodium 141 mmol/L (136-145); Total Bilirubin 0.3 mg/dL (0.15-1.2); Total Protein 6.1 g/dL (6.6-8.7)
[2024-04-26] MEDS: LORazepam 2 mg/mL INJ 1 mL 1 MG IVP (13:19)
[2024-04-26 13:39] VITALS: PULSE 69; RESP 21; O2SAT 94
[2024-04-26 14:00] VITALS: PULSE 68; RESP 21; O2SAT 94
[2024-04-26 14:46] LABS: Troponin 5 2HR 24.26 ng/L (0-15); Troponin 5 2HR Delta -2.74 ABS# (0-10)
[2024-04-26 14:49] VITALS: BP 118/63; PULSE 59; O2SAT 98
== END 2024-04-26 14:44 | disposition home or self-care (01) ==
PROVIDERS: Emergency Provider Emergency Medicine; PCP Family Medicine
DX: F41.9 Anxiety disorder, unspecified (principal); R06.02 Shortness of breath; Z79.02 Long term (current) use of antithrombotics/antiplatelets; E78.5 Hyperlipidemia, unspecified
CPT/HCPCS: 36415; 36600; 71045; 80051; 80053; 82330; 82805; 83605; 83880; 84484; 85025; 87040; 93005; 96374; 99285; J2060